=== PATIENT | female | born 1950 | race Caucasian/White ===

== ENCOUNTER → 2016-11-02 | Outpatient (CLI) | payer OTHER ==
[~2016-11-02] MED LIST: ATOR-24 PO; CMD/25 PO; DXY100 PO; FURO80TA63 PO; HYCUDL5 PO; LORA10CA2 PO; LXP/10 PO; METO100T14 PO; POTA1080 PO; SOTA160T16 PO; WARF5TAB90 PO
[2016-11-02 09:34] LABS: BASO % 0.4 %; BASO ABS # 0.03 K/uL (0-0.2); COMPLETE YES; HEMATOCRIT 47.7 % (37-47); IG% 0.3 %; LYMPH % 21.1 %; LYMPH ABS # 1.56 K/uL (1.2-3.4); MEAN CELL VOLUME 88.7 fL (80-100); MEAN CORPUSCULAR HEMOGLOBIN 27.5 pg (25-34); MEAN PLATELET VOLUME 10.3 fL (7.4-10.4); NEUT % 70.2 %; PLATELET COUNT 224 K/uL (130-400); RED BLOOD COUNT 5.38 M/uL (4.2-5.4); WHITE BLOOD COUNT 7.38 K/uL (4.8-10.8)
[2016-11-02 10:14] LABS: BLOOD UREA NITROGEN 11 mg/dl (7-18); BUN/CREATININE RATIO 14.5 (10-20); CALCIUM 9.1 mg/dl (8.5-10.1); CARBON DIOXIDE 28 mmol/L (21-32); CHLORIDE 106 mmol/L (98-107); CREATININE 0.78 mg/dl (0.60-1.20); GLUCOSE 162 mg/dl (70-99); POTASSIUM 3.6 mmol/L (3.5-5.1); SODIUM 141 mmol/L (136-145)
[2016-11-02 10:25] LABS: THYROID STIMULATING HORMONE 0.925 uIu/ml (0.300-4.500)
== END | disposition home or self-care (01) ==
LOC: C.LAB1850 08:45
PROVIDERS: ATTEND Physician Assistant Medical
DX: R06.09 Other forms of dyspnea (principal)

== ENCOUNTER 2017-02-15 10:47 | Emergency (ER) | payer OTHER ==
[~2017-02-15] VITALS: Ht 160 cm; Wt 91.8 kg
[~2017-02-15 10:47] MED LIST changes: -SOTA160T16 PO; +[UNRECOGNIZED DRUG - CODE] PO
[2017-02-15 10:53] VITALS: TEMP 36.3; Ht 160 cm; Wt 91.8 kg
[2017-02-15] MEDS ORDERED: METO50TA17 PO (11:34)
[2017-02-15] MEDS ORDERED: SOTA160T PO (11:34)
[2017-02-15] MEDS ORDERED: LXP/20 PO (11:34)
[2017-02-15] MEDS ORDERED: LPT40 PO (11:34)
[2017-02-15] MEDS ORDERED: WARF-246 PO (11:34)
[2017-02-15] MEDS ORDERED: PROM12.57 PO (11:34)
[2017-02-15] MEDS ORDERED: POTA1CAP2 PO (11:34)
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
[2017-02-15 12:56] VITALS: BP 121/96; PULSE 104; O2SAT 93
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
[2017-03-09] MEDS ORDERED: AMX500 (06:53)
[2017-03-09] MEDS ORDERED: ACET-1256 PO (06:53)
[2017-03-09] MEDS ORDERED: TRAM-10 PO (06:53)
[2017-03-09] MEDS ORDERED: CLR10 PO (06:53)
[2017-03-09] MEDS ORDERED: VNTHFA/IN INH (06:53)
== END 2017-02-15 12:58 | disposition home or self-care (01) ==
LOC: C.EDB 10:48 → C.EDD 12:58
DX: R51 Headache (principal); M54.2 Cervicalgia; M25.512 Pain in left shoulder; V43.52XA Car driver injured in collision with other type car in traffic accident, initial encounter; I48.91 Unspecified atrial fibrillation; I10 Essential (primary) hypertension; Z79.01 Long term (current) use of anticoagulants; Z95.2 Presence of prosthetic heart valve

== ENCOUNTER → 2017-03-01 | Outpatient (CLI) | payer OTHER ==
[~2017-03-01] MED LIST changes: -ATOR-24 PO; -CMD/25 PO; -DXY100 PO; -HYCUDL5 PO; -LORA10CA2 PO; +LPT40 PO; -LXP/10 PO; +LXP/20 PO; -METO100T14 PO; +METO50TA17 PO; -POTA1080 PO; +POTA1CAP2 PO; +PROM12.57 PO; +SOTA160T PO; +WARF-246 PO; -WARF5TAB90 PO; -[UNRECOGNIZED DRUG - CODE] PO
[2017-03-01 09:46] LABS: BLOOD UREA NITROGEN 17 mg/dl (7-18); CALCIUM 8.4 mg/dl (8.5-10.1); CARBON DIOXIDE 30 mmol/L (21-32); CREATININE 0.92 mg/dl (0.60-1.20); GLUCOSE 186 mg/dl (70-99); POTASSIUM 3.6 mmol/L (3.5-5.1); SODIUM 140 mmol/L (136-145)
== END | disposition home or self-care (01) ==
LOC: C.LAB1850 08:36
PROVIDERS: ATTEND Physician Assistant
DX: I50.32 Chronic diastolic (congestive) heart failure (principal)

== ENCOUNTER → 2017-03-09 | Day surgery (SDC) | payer OTHER ==
[~2017-03-09] VITALS: Ht 160 cm; Wt 93.0 kg
[~2017-03-09] MED LIST changes: +ACET-1256 PO; +AMX500; +ATROPINE SULFATE 0.1 MG/ML 5ML SYR IV PRN; +CLR10 PO; +EpHEDrine SULFATE INJ 50 MG/ML AMP IV PRN; +PROPOFOL IV EMULSION 10 MG/ML 20 ML VIAL IV ONE; +TRAM-10 PO; +VNTHFA/IN INH
[2017-03-09 07:15] VITALS: BP 127/94; PULSE 109; TEMP 36.4; O2SAT 99; Ht 160 cm; Wt 93.0 kg
--- NOTE | 2017-03-09 07:26 | History & Physical Bridge Note ---
H&P Re-Evaluation Bridge Note: I have examined the patient, reviewed the History & Physical and in the interval since the performance of the History & Physical I have noted the following changes of clinical significance:INR therapeutic. Still in AF. No changes noted
[2017-03-09 07:38] VITALS: BP 139/77; PULSE 120; O2SAT 99
[2017-03-09 07:43] VITALS: BP 106/64; PULSE 120; O2SAT 95
--- NOTE | 2017-03-09 07:44 | Procedure Note ---
Procedure Note Date of Service Mar 09, 2017. Procedure Note Procedure performed: Cardioversion Indication: Atrial fibrillation Staff process line operator: Andrea Riso MD Procedure in detail: The patient was informed of the risks benefits and alternatives to the intended procedure. He understood such which proceed. He was taken to the cardiac catheterization suite holding area. A general anesthetic was administered by the Anesthesiology Service. Once appropriately anesthetized, the patient was cardioverted using 200 joules delivered in a biphasic fashion. This returned the patient to sinus rhythm. The patient tolerated procedure well, there were no immediate complications. Patient was neurologically intact subsequent to the procedure. Impression: Successful cardioversion from atrial fibrillation to normal sinus rhythm
--- NOTE | 2017-03-09 07:45 | Discharge Instructions ---
Discharge Instructions Procedure Procedure Date: Mar 09, 2017. Reason for Visit: A Fib W/Anesthesia. Discharge Discharge Date: Mar 09, 2017. Discharge Diagnosis: Atrial fibrillation Last Recorded Wt (Kilograms): 93 Anesthesia Post Anesthesia Instructions: If you have had General Anesthesia or IV Sedation: * Do not drive today. * Resume driving when surgeon permits. * Do not make important decisions or sign legal documents today. * Call surgeon for: 1. Temperature elevations greater than 101 degrees F. 2. Uncontrollable pain. 3. Excessive bleeding. 4. Persistent nausea and vomiting. 5. Medication intolerance (nausea, vomiting or rash). * For nausea and vomiting use only clear liquids such as: tea, soda, bouillon until nausea subsides, then gradually increase diet as tolerated. * If you have any concerns or questions, call your surgeon's office. If physician is unavailable and it is an emergency, call 911 or go to the nearest emergency room. Instructions Activity Recommendations: driving or machine use limit Return to School/Work: with the following limitations Recommended Home Diet: resume previous diet Allergies: Coded Allergies: Iodinated Contrast Media (Verified Allergy, Mild, `, 02/15/17) Latex1 -Allergic Contact Dermititis (Verified Allergy, Unknown, skin red and blistered, 02/15/17) Provider Instructions No driving for 24 hours Follow Up Swapnil Ortiz Recommendations: Call your doctor if: * Temperature above 101 degrees * Pain not relieved by pain medicine ordered * There is increased drainage or redness from any incision * You have any unanswered questions or concerns. Your Doctors Instructions noted above were prepared by provider Anthony Rios. Patient Signature Section: Patient Instructions Signature Page Alexsandra Wolf Patient (or Guardian) Signature/Date: I have read and understand the instructions given to me by my caregivers. Caregiver/RN/Doctor Signature/Date: The above-named patient and/or guardian has received patient instructions on this date. + Original Patient Signature Page (only) stays with chart. Please make copy for patient.
[2017-03-09 07:48] VITALS: BP 90/54; PULSE 60; O2SAT 95
--- NOTE | 2017-03-09 07:54 | Anesthesiology Progress Note ---
Anesthesia Post Op Note Date & Time Mar 09, 2017 at 07:54 Vital Signs Pain Intensity: 0 Vital Signs Past 12 Hours Date Time Temp Pulse Resp B/P (MAP) Pulse Ox O2 Delivery O2 Flow Rate FiO2 03/09/17 07:50 36.5 60 18 93/58 (70) 95 Room Air 03/09/17 07:48 60 18 90/54 95 Nasal Cannula 4 03/09/17 07:43 120 18 106/64 95 Nasal Cannula 4 03/09/17 07:38 120 18 139/77 99 Nasal Cannula 4 03/09/17 07:15 36.4 109 18 127/94 (105) 99 Room Air Notes Mental Status: alert / awake / arousable, participated in evaluation Pt Amnestic to Procedure: Yes Nausea / Vomiting: adequately controlled Pain: adequately controlled Airway Patency, RR, SpO2: stable & adequate BP & HR: stable & adequate Hydration State: stable & adequate Anesthetic Complications: no major complications apparent
[2017-03-09 08:30] VITALS: BP 122/66; PULSE 61; O2SAT 95
== END | disposition home or self-care (01) ==
LOC: C.CATH 06:56
PROVIDERS: ATTEND Internal Medicine Clinical Cardiac Electrophysiology
DX: I48.0 Paroxysmal atrial fibrillation (principal); I11.0 Hypertensive heart disease with heart failure; E78.5 Hyperlipidemia, unspecified; I50.32 Chronic diastolic (congestive) heart failure; R06.09 Other forms of dyspnea; Z95.2 Presence of prosthetic heart valve; E66.9 Obesity, unspecified; Z68.36 Body mass index [BMI] 36.0-36.9, adult; Z88.1 Allergy status to other antibiotic agents; Z79.899 Other long term (current) drug therapy; Z83.3 Family history of diabetes mellitus; Z82.49 Family history of ischemic heart disease and other diseases of the circulatory system

== ENCOUNTER 2017-04-13 16:55 | Inpatient (IN) | payer OTHER ==
[~2017-04-13] VITALS: Ht 162.6 cm; Wt 93.0 kg
[~2017-04-13 16:55] MED LIST changes: -ATROPINE SULFATE 0.1 MG/ML 5ML SYR IV PRN; -EpHEDrine SULFATE INJ 50 MG/ML AMP IV PRN; -PROM12.57 PO; -PROPOFOL IV EMULSION 10 MG/ML 20 ML VIAL IV ONE; -TRAM-10 PO
[2017-04-13] MEDS ORDERED: DILTIAZEM BOLUS / DRIP IV STA (17:36)
[2017-04-13] MEDS ORDERED: DILTIAZEM HCL INJ 125 MG in DEXTROSE 5% 100ML IV PRN (17:45)
[2017-04-13] MEDS ORDERED: WARF5TAB7 PO (17:57)
[2017-04-13] MEDS ORDERED: CMD75 PO (17:57)
[2017-04-13] MEDS ORDERED: ULT50 PO (17:58)
[2017-04-13 17:59] LABS: BASO % 0.3 %; BASO ABS # 0.03 K/uL (0-0.2); EOS ABS # 0.09 K/uL (0-0.5); HEMATOCRIT 41.2 % (37-47); HEMOGLOBIN 13.3 g/dL (12.0-16.0); IG# 0.01 K/uL (0.00-0.02); LYMPH % 19.9 %; LYMPH ABS # 1.83 K/uL (1.2-3.4); MEAN CELL VOLUME 84.1 fL (80-100); MEAN CORPUSCULAR HEMOGLOBIN 27.1 pg (25-34); MEAN CORPUSCULAR HGB CONC 32.3 g/dl (32-36); MEAN PLATELET VOLUME 9.7 fL (7.4-10.4); MONO % 6.2 %; MONO ABS # 0.57 K/uL (0.11-0.59); NEUT % 72.5 %; NEUT ABS # 6.66 K/uL (1.4-6.5); PLATELET COUNT 218 K/uL (130-400); RED CELL DISTRIBUTION WIDTH CV 16.8 % (11.5-14.5); RED CELL DISTRIBUTION WIDTH SD 51.9 fL (36.4-46.3); WHITE BLOOD COUNT 9.19 K/uL (4.8-10.8)
[2017-04-13 18:16] LABS: INR 2.5 (0.9-1.1); PTT PATIENT 30.6 SECONDS (21.0-31.0)
[2017-04-13 18:18] LABS: CALCIUM 8.9 mg/dl (8.5-10.1); CREATININE 1.04 mg/dl (0.60-1.20); POTASSIUM 3.5 mmol/L (3.5-5.1)
--- NOTE | 2017-04-13 18:25 | DIAGNOSTIC IMAGING REPORT ---
CHEST ONE VIEW PORTABLE CLINICAL HISTORY: Atypical chest pain COMPARISON STUDY: February 2015 FINDINGS: There are postsurgical changes of midline sternotomy and valvular replacement. The heart remains enlarged. There is diffuse elevation of the interstitium, likely secondary to mild congestive failure/fluid overload. There is no lobar consolidation. There are no significant pleural effusions.[ IMPRESSION: 1. Cardiomegaly and diffuse elevation of the interstitium, likely secondary to mild congestive failure/fluid overload 2. No evidence of lobar consolidation Electronically signed by: Ian Fox M.D. 04/13/2017 6:23 PM Dictated Date/Time: 04/13/2017 6:22 PM
[2017-04-13] MEDS ORDERED: METOPROLOL TARTRATE 50 MG TAB PO ONE (19:30)
[2017-04-13] MEDS ORDERED: LEVALBUTEROL/IPRATROPIUM NEB INH STA (20:59)
[2017-04-13] MEDS ORDERED: PROCHLORPERAZINE INJ 5 MG in SYRINGE 4 ML IV PRN (21:00)
[2017-04-13] MEDS ORDERED: ACETAMINOPHEN 325 MG TAB PO PRN (21:00)
[2017-04-13] MEDS ORDERED: LEVALBUTEROL/IPRATROPIUM NEB INH PRN (21:00)
[2017-04-13] MEDS ORDERED: LORAZEPAM 2 MG/ML 1 ML VIAL IV PRN (21:00)
[2017-04-13] MEDS ORDERED: NITROGLYCERIN 0.4 MG SL PER TAB CHARGE SL PRN (21:00)
[2017-04-13] MEDS ORDERED: TRAMADOL HCL 50 MG TAB PO PRN (21:00)
[2017-04-13] MEDS ORDERED: MoRPHine SULFATE 4 MG/ML 1 ML CARP\\VIAL IV PRN (21:00)
[2017-04-13] MEDS ORDERED: WARFARIN SOD 5 MG TAB PO ONE (21:00)
[2017-04-13] MEDS ORDERED: FUROSEMIDE 40 MG/4 ML VIAL IV STA (21:05)
[2017-04-13 21:58] VITALS: BP 130/80; PULSE 76; TEMP 36.5; O2SAT 93; BMI 35.6
[2017-04-13] MEDS ORDERED: IPRATROPIUM BROMIDE NEB SOLN 0.02% 2.5 ML VIAL INH ONE (22:15)
[2017-04-13] MEDS ORDERED: LEVALBUTEROL 1.25MG/0.5ML NEB INH ONE (22:15)
[2017-04-13] MEDS ORDERED: MAGNESIUM SULFATE 1GM / D5W 1 GM in PREMIXED IN D5W 100 ML IV ONE (22:30)
[2017-04-13] MEDS ORDERED: POTASSIUM CHLORIDE 10 MEQ TABCR PO ONE (22:30)
[2017-04-13] MEDS ORDERED: IPRATROPIUM BROMIDE NEB SOLN 0.02% 2.5 ML VIAL INH PRN (22:30)
[2017-04-13] MEDS ORDERED: LEVALBUTEROL 1.25MG/0.5ML NEB INH PRN (22:30)
[2017-04-13] MEDS ORDERED: NURSING VERBAL MED ORDER ONE (23:00)
--- NOTE | 2017-04-13 23:33 | EMERGENCY ROOM VISIT NOTE ---
History Report prepared by Eder: Giovanni Brown Under the Supervision of: Dr. Hunter Blanco M.D. First contact with patient: 17:30 Chief Complaint: IRREGULAR HEARTBEAT Stated Complaint: SOB, AFIB- PHYSICIAN REFERRED Nursing Triage Summary: Patient presents with history of atrial fibrillation. States, "I'm in a-fib and short of brerath". Sent to ED by [facility] [place]. Mechanical aortic valve replaced in 2006, on warfarin. Patient is dyspneic on presentation. States that she has difficulty walking more than 50 feet without having to stop due to dyspnea. History of Present Illness The patient is a 67 year old female who presents to the Emergency Room with complaints of persistent irregular heartbeat for the past week. The patient additionally notes that she has been having worsening shortness of breath for the last couple of weeks, and she had a chest pressure last night which quickly resolved. The patient denies any abdominal pain, vomiting, diarrhea, fever, and light headedness. She notes that she sometimes has a headache. The patient states that she has a history of A-fib, and she was cardioverted on March 09. She notes that she was having a normal heart rate for a while, though the A-fib is coming back. She notes that she is on metoprolol and sotalol, and both dosages were increased 4 weeks ago. The patient states that she called cardiology this morning, and they told her to come to the ED for evaluation. She has a mechanical valve, and she is on Coumadin. She denies any rectal bleeding and black stools. Source of History: patient Onset: the past week Position: other (global) Quality: other (irregular heartbeat) Timing: other (persistent) Associated Symptoms: + headache, + SOB, No fevers, No vomiting, No abdominal pain, No diarrhea Note: Associated symptoms: Chest pressure Review of Systems See HPI for pertinent positives & negatives. A total of 10 systems reviewed and were otherwise negative. Past Medical & Surgical Medical Problems: (1) Afib (2) Anticoagulants,Lt,Current Use (3) Atrial Fibrillation (4) Calculus Of Kidney (5) CHF exacerbation (6) Delivered by section (7) Depressive Disorder Nec (8) HLD (hyperlipidemia) (9) HTN (hypertension) (10) Hypoxia (11) Personal History Of Urinary Calculi Surgical Problems: (1) Heart Valve Replac Nec (2) History of aortic valve replacement (3) History of oophorectomy, unilateral (4) S/P tonsillectomy Family History Diabetes mellitus FATHER BROTHER FH: cancer FATHER BROTHER FH: heart disease FATHER MOTHER BROTHER Hypertension MOTHER Stroke MOTHER Social History Smoking Status: Former Smoker Alcohol Use: none Drug Use: none Marital Status: single Occupation Status: employed Current/Historical Medications Scheduled Atorvastatin (Lipitor), 1 TAB PO DAILY Escitalopram Oxalate (Escitalopram Oxalate), 1 TAB PO DAILY Loratadine (Claritin), 10 MG PO DAILY Metoprolol Tartrate (Metoprolol Tartrate), 100 MG PO BID Potassium Chloride (Potassium Chloride Er), 1 CAP PO UD Sotalol Hcl (Sotalol Hcl), 80 MG PO BID Warfarin Sod (Jantoven), 5 MG PO 2XWK Warfarin Sod (Coumadin), 7.5 MG PO 5XWK Scheduled PRN Acetaminophen (Tylenol), 500 MG PO for Pain Amoxicillin (Amoxicillin), for Documentation Furosemide (Lasix), Unknown Dose PO DAILY PRN for WATER RETENTION Tramadol HCl (Tramadol HCl), 50 MG PO Q6 PRN for Pain Allergies Coded Allergies: Iodinated Contrast Media (Verified Allergy, Mild, `, 04/13/17) Latex1 -Allergic Contact Dermititis (Verified Allergy, Unknown, skin red and blistered, 04/13/17) Physical Exam Vital Signs Date Time Temp Pulse Resp B/P (MAP) Pulse Ox O2 Delivery O2 Flow Rate FiO2 04/13/17 19:41 85 20 138/95 96 Room Air 04/13/17 19:39 96 Room Air 04/13/17 19:00 102 22 152/111 96 Room Air 04/13/17 17:41 119 04/13/17 17:10 36.7 134 24 128/77 94 Room Air 04/13/17 17:03 Room Air Physical Exam Constitutional: Vital signs reviewed. Eyes: Pupils are equal round reactive to light. Conjunctiva are noninjected. ENT: Pharynx is clear without erythema or exudate. Mucous membranes are moist. Neck supple without meningeal signs. Respiratory: Clear to auscultation bilaterally. Breath sounds are equal bilaterally. Cardiovascular: Tachycardic heart rate in the 130s. Irregularly irregular rhythm. Audible mechanical valve. GI: Soft, nondistended and nontender. Bowel sounds are present. Musculoskeletal: No peripheral edema. No lower extremity tenderness. Integumentary: No cyanosis. Neurological: The patient is awake and alert. No focal deficits. Psychiatric: Normal affect. Medical Decision & Procedures ER Provider Diagnostic Interpretation: Radiology results as stated below per my review and the radiologist's interpretation: CHEST ONE VIEW PORTABLE CLINICAL HISTORY: Atypical chest pain COMPARISON STUDY: February 2015 FINDINGS: There are postsurgical changes of midline sternotomy and valvular replacement. The heart remains enlarged. There is diffuse elevation of the interstitium, likely secondary to mild congestive failure/fluid overload. There is no lobar consolidation. There are no significant pleural effusions.[ IMPRESSION: 1. Cardiomegaly and diffuse elevation of the interstitium, likely secondary to mild congestive failure/fluid overload 2. No evidence of lobar consolidation Electronically signed by: Ian Fox M.D. 04/13/2017 6:23 PM Dictated Date/Time: 04/13/2017 6:22 PM Laboratory Results 04/13/17 17:45 Red Blood Count 4.90, Mean Corpuscular Volume 84.1, Mean Corpuscular Hemoglobin 27.1, Mean Corpuscular Hemoglobin Concent 32.3, Mean Platelet Volume 9.7, Neutrophils (%) (Auto) 72.5, Lymphocytes (%) (Auto) 19.9, Monocytes (%) (Auto) 6.2, Eosinophils (%) (Auto) 1.0, Basophils (%) (Auto) 0.3, Neutrophils # (Auto) 6.66, Lymphocytes # (Auto) 1.83, Monocytes # (Auto) 0.57, Eosinophils # (Auto) 0.09, Basophils # (Auto) 0.03 04/13/17 17:45 Test 04/13/17 17:45 04/13/17 19:41 White Blood Count 9.19 K/uL (4.8-10.8) Red Blood Count 4.90 M/uL (4.2-5.4) Hemoglobin 13.3 g/dL (12.0-16.0) Hematocrit 41.2 % (37-47) Mean Corpuscular Volume 84.1 fL (80-100) Mean Corpuscular Hemoglobin 27.1 pg (25-34) Mean Corpuscular Hemoglobin Concent 32.3 g/dl (32-36) Platelet Count 218 K/uL (130-400) Mean Platelet Volume 9.7 fL (7.4-10.4) Neutrophils (%) (Auto) 72.5 % Lymphocytes (%) (Auto) 19.9 % Monocytes (%) (Auto) 6.2 % Eosinophils (%) (Auto) 1.0 % Basophils (%) (Auto) 0.3 % Neutrophils # (Auto) 6.66 K/uL (1.4-6.5) Lymphocytes # (Auto) 1.83 K/uL (1.2-3.4) Monocytes # (Auto) 0.57 K/uL (0.11-0.59) Eosinophils # (Auto) 0.09 K/uL (0-0.5) Basophils # (Auto) 0.03 K/uL (0-0.2) RDW Standard Deviation 51.9 fL (36.4-46.3) RDW Coefficient of Variation 16.8 % (11.5-14.5) Immature Granulocyte % (Auto) 0.1 % Immature Granulocyte # (Auto) 0.01 K/uL (0.00-0.02) Prothrombin Time 26.1 SECONDS (9.0-12.0) Prothromb Time International Ratio 2.5 (0.9-1.1) Activated Partial Thromboplast Time 30.6 SECONDS (21.0-31.0) Partial Thromboplastin Ratio 1.2 Anion Gap 7.0 mmol/L (3-11) Est Creatinine Clear Calc Drug Dose 56.8 ml/min Estimated GFR () 63.5 Estimated GFR (Non- 54.8 BUN/Creatinine Ratio 16.6 (10-20) Calcium Level 8.9 mg/dl (8.5-10.1) Magnesium Level 1.9 mg/dl (1.8-2.4) Pro-B-Type Natriuretic Peptide 3984 pg/ml (0-900) Thyroid Stimulating Hormone (TSH) 1.470 uIu/ml (0.300-4.500) Bedside Troponin I < 0.030 ng/ml (0-0.045) Laboratory results as reviewed by me. Medications Administered Medications (Trade) Dose Ordered Sig/Travis Route Start Time Stop Time Status Last Admin Dose Admin Diltiazem HCl (Cardizem Bolus / Drip) 1 ea NOW STAT IV 04/13/17 17:36 04/13/17 22:59 DC 04/13/17 17:36 1 EA Diltiazem HCl 125 mg/Dextrose 125 ml @ 0 mls/hr Q0M PRN IV 04/13/17 17:45 05/13/17 17:44 04/13/17 18:06 10 MLS/HR ECG Per My Interpretation Indication: other (irregular heart rate) Rate (beats per minute): 126 Rhythm: atrial fibrillation (with RVR) Findings: RBBB (incomplete), T-wave inversion (anteroseptal) ED Course 0: The patient was evaluated in room C2. A complete history and physical exam was performed. 1735: Diltiazem HCl 125mg/ Dextrose 10mls/hr IV 1809: I reevaluated the patient, and she started the Cardizem. Her heat rate was 113. 0: The patient's heart rate was in the 90s to 110s, and she has no complaints. 1901: I reevaluated the patient, and her blood pressure was better and her heart rate down. I discussed the test results and treatment plan with her. 1920: I discussed the patient's case with Dr. Chantal Johnson Hospitalist. He is going to evaluate the patient for further treatment. Medical Decision This is a 67-year-old female presents with shortness of breath and palpitations with chest pain. Differential diagnosis includes dysrhythmia, atrial fibrillation with RVR, unstable angina, metabolic derangement, electrolyte abnormality. I did perform a limited focused review of portions of the patient' s old chart on the electronic medical record. The patient underwent cardioversion with Dr. Rios on 03/09/16. I did evaluate the patient as noted above. IV access was established. The patient was placed on a continuous cardiac cath tech. I did order and personally review the patient's 12-lead EKG and chest x-ray as described above. Twelve- lead EKG demonstrates atrial fibrillation with RVR. I did start the patient on a Cardizem drip at 10 mg an hour. I did not bolus her as her blood pressure was slightly low. I did order and review the patient's blood work as noted in the electronic medical record. Her INR is therapeutic. Electrolytes are unremarkable. Troponin is negative. I did reassess patient several times. Her blood pressure improved and her heart rate came down into the 90s. I did discuss the test results with the patient and discussed case with the hospitalist and hospice case manager. Medication Reconcilliation Current Medication List: was personally reviewed by me Blood Pressure Screening Patient's blood pressure: Elevated blood pressure Monitored by the hospitalist Consults Time Called: 1851 Consulting Physician: Dr. Chantal Kyle Returned Call: 1920 I discussed the patient's case with Dr. Chantal Kyle. He is going to evaluate the patient for further treatment. Impression Primary Impression: Atrial fibrillation with RVR Additional Impressions: Anticoagulated on Coumadin Precordial chest pain Critical Care I have personally spent 33 minutes of critical care time in the direct management of this patient. This includes bedside care, interpretation of diagnostic studies, and testing, discussion with consultants, patient, and family members, and other required patient management activities. This 33 minutes is in excess of all separately billable procedures. Scribe Attestation The scribe's documentation has been prepared under my direct and personally reviewed by me in its entirety. I confirm that the note above accurately reflects all work, treatment, procedures, and medical decision making performed by me. Departure Information Dispostion Being Evaluated By Hospitalist Referrals Guillermina Barry D.O. (PCP) Patient Instructions My [facility] Problem Qualifiers
[2017-04-13 23:45] VITALS: BP 106/67; PULSE 84; TEMP 36.7; O2SAT 95
[2017-04-14] VITALS (8 sets, daily range): BP systolic 95–127; BP diastolic 47–104; PULSE 67–107; TEMP 36.7–36.8; O2SAT 93–98; Ht 162.6 cm; Wt 93.0 kg
[2017-04-14] MEDS ORDERED: INFLUENZA ADMINISTRATION CHARGE ONE (01:45)
[2017-04-14] MEDS ORDERED: INFLUENZA VACCINE HIGH DOSE 65+ 0.5 ML SYR IM. ONE (01:45)
--- NOTE | 2017-04-14 05:20 | HISTORY & PHYSICAL EXAMINATION ---
DATE OF ADMISSION: 04/13/2017 PRIMARY CARE DOCTOR: Dr. Barry. CHIEF COMPLAINT: Atrial fibrillation. HISTORY OF PRESENT ILLNESS: History obtained from the patient and records. Medical history significant for chronic systolic heart failure EF 45-50% TTE 2014, history of mechanical AVR, atrial fibrillation on Coumadin, hypertension, urolithiasis, past tobacco abuse, history of difficult intubation as per records Recent confinement last February 2015 for acute bronchitis. As per patient, the last 3 months, patient noted dyspnea on exertion, usual orthopnea. No chest pain. Denies unusual weight gain or leg swelling, although admits to some chest and abdominal fullness. No cough symptoms. Denies dietary indiscretion. Compliant with medications. Symptoms persistent despite elective cardioversion done for AF last February 2017 [place] [facility]. As per patient she relapse into A. fib a week after cardioversion. Has had monthly follow ups at [facility] office the last 3 months. Diuretic doses tweaked, Sotalol dose increased from 80 mg to 160 b.i.d. No improvement of breathing symptoms. Had a followup at heart doctor's office today. Patient directed to the Emergency Room. Noted to be in rapid AFib in ER. IV Cardizem started in the ER. MEDICAL HISTORY: As above. A 2D echo from 2014 showed EF of 45-50%, intact prosthetic aortic root, mechanical aortic valve, mild aortic stenosis, mild moderate MR, mild TR, normal RV systolic pressure. SURGICAL HISTORY: She has had aortic valve replacement, urologic procedures, tonsillectomy and section. HOME MEDICATIONS: Include Lipitor, Tylenol, citalopram, Lasix, Claritin, metoprolol, potassium chloride, sotalol, tramadol, Jantoven, and Coumadin. ALLERGIES: LATEX DYE. FAMILY HISTORY: Family history of kidney stones, heart disease. 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. 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 REVIEW OF SYSTEMS: As per HPI, all 10 systems reviewed, all other ROS negative. PHYSICAL EXAMINATION: VITAL SIGNS: Blood pressure noted to be 128/77, pulse rate 134, later 102; RR 24, temperature 36.7, sats 94% on room air. GENERAL: Noted to be slightly anxious, obese, pleasant, no respiratory distress. SKIN: Normal color, warm. HEENT: [place] palpebral conjunctivae. No ptosis. Dry mucosa. NECK: Short neck, supple. CHEST: Decreased breath sounds. No tenderness. HEART: Healed incisional sternal scar. Irregular, systolic murmur. ABDOMEN: Some distention, nontender. EXTREMITIES: Minimal LE edema, no tenderness. No tenderness NE : Coherent, no gross focality. LABORATORY DATA: Hemoglobin 13.8, hematocrit 41.2, white cells 9.19, platelets 218. Sodium 140, potassium 3.5, CO2 26, BUN 70, creatinine 1 glucose 142. trop 0, INR 2.5 IMAGING DATA: Chest x-ray showed cardiomegaly, mild congestion. EKG as per my interpretation, rate 125, aFib, incomplete right bundle branch block, ST depression in the inferior leads. ASSESSMENT: 1. Decompensated heart failure Subacute symptoms history of systolic heart failure (EF 45-50% TTE 2014) 2. Rapid atrial fibrillation past hx cardioversion 02/2017 INR subtherapeutic. 3. Hypertension 4. sp mechanical aortic valve replacement, on Coumadin. INR subtherapeutic. 5. Past tobacco abuse. 6. Hyperglycemia, rule out DM PLAN: PCU. Additional diuretic Rx Strict IOs, daily weights, CHF education Update TTE RE CHF Facilitate home Metoprolol, Sotalol maintenance medications for rate control. Cardio consult RE decompensated HF, uncontrolled AF (Patient known to [facility] NPO sips after midnight for possible cardioversion in the morning. Check hemoglobin A1c. DVT prophylaxis, Coumadin, INR 2-3. Full code. MTDD
[2017-04-14 07:01] LABS: HEMOGLOBIN A1C 6.7 % (4.5-5.6)
[2017-04-14 07:20] LABS: BASO % 0.5 %; BASO ABS # 0.03 K/uL (0-0.2); EOS % 2.1 %; EOS ABS # 0.14 K/uL (0-0.5); HEMATOCRIT 41.6 % (37-47); IG# 0.02 K/uL (0.00-0.02); LYMPH % 24.2 %; LYMPH ABS # 1.58 K/uL (1.2-3.4); MEAN CELL VOLUME 84.7 fL (80-100); MEAN CORPUSCULAR HEMOGLOBIN 26.5 pg (25-34); MEAN CORPUSCULAR HGB CONC 31.3 g/dl (32-36); MEAN PLATELET VOLUME 9.4 fL (7.4-10.4); MONO % 8.3 %; MONO ABS # 0.54 K/uL (0.11-0.59); NEUT % 64.6 %; NEUT ABS # 4.22 K/uL (1.4-6.5); PLATELET COUNT 201 K/uL (130-400); RED CELL DISTRIBUTION WIDTH CV 16.9 % (11.5-14.5); RED CELL DISTRIBUTION WIDTH SD 52.3 fL (36.4-46.3); WHITE BLOOD COUNT 6.53 K/uL (4.8-10.8)
[2017-04-14 07:30] LABS: INR 2.4 (0.9-1.1)
[2017-04-14 07:49] LABS: CALCIUM 8.6 mg/dl (8.5-10.1); CREATININE 0.87 mg/dl (0.60-1.20); POTASSIUM 3.8 mmol/L (3.5-5.1)
[2017-04-14] MEDS ORDERED: NURSING VERBAL MED ORDER ONE ×3 (08:45→11:45)
[2017-04-14] MEDS ORDERED: POTASSIUM CHLORIDE 10 MEQ TABCR PO SCH ×2 (09:00)
[2017-04-14] MEDS ORDERED: ATORVASTATIN 40 MG TAB PO SCH ×2 (09:00→21:00)
[2017-04-14] MEDS ORDERED: FUROSEMIDE INJ 80 MG in SYRINGE 0 ML IV ONE (09:00)
[2017-04-14] MEDS ORDERED: LORATADINE 10 MG TAB PO SCH (09:00)
[2017-04-14] MEDS ORDERED: METOPROLOL TARTRATE 100 MG TAB PO SCH (09:00)
[2017-04-14] MEDS ORDERED: ESCITALOPRAM OXALATE 20 MG TAB PO SCH ×2 (09:00→21:00)
[2017-04-14] MEDS ORDERED: SOTALOL HCL 80 MG TAB PO SCH (09:00)
--- NOTE | 2017-04-14 11:02 | Cardiology Consultation ---
Cardiology Consultation Date of Consultation: Apr 14, 2017. Requesting Physician: Jean Reason for Consultation: Atrial fibrillation Pt evaluation today including: conversation w/ patient, conversation w/ family , physical exam, chart review, lab review, review of studies, review of inpatient medication list, conversation w/ attending History of Present Illness Patient is a 67-year-old woman with a history of persistent atrial fibrillation. She was evaluated in the outpatient setting recently and discovered to have persistent atrial fibrillation with symptoms of dyspnea on exertion and exercise intolerance. She had undergone a cardioversion in February but did not notice significant improvement in her symptoms afterwards. There is some suspicion that she did not have an extended period of sinus rhythm. In the outpatient setting she has had increasing doses of sotalol. She has also been placed on diuretic therapy for presumed pulmonary vascular congestion. However, her symptoms have persisted. She was evaluated in the outpatient setting yesterday discovered to have atrial fibrillation with rapid ventricular rate. She also had notable dyspnea while walking into the clinic from the parking lot. She is not describe overt orthopnea or paroxysmal nocturnal dyspnea but has been sleeping upright ever since her aortic valve surgery 11 years ago. She has not noticed dizziness or lightheadedness. She is aware of palpitations on occasion, more commonly when she is active. She does not report significant edema and has not noticed increasing abdominal girth or swelling in her chest area which is common for her when she has edema. She has not noticed any swelling in her lower extremities. She denies any recent symptoms of chest discomfort. Past Medical/Surgical History Atrial fibrillation, persistent History of tachycardia induced cardiomyopathy, resolved Hyperlipidemia Hypertension Ureteral stricture Past surgical history Mechanical aortic valve replacement with root replacement 2007 Caesarean section Family History Diabetes mellitus FATHER BROTHER FH: cancer FATHER BROTHER FH: heart disease FATHER MOTHER BROTHER Hypertension MOTHER Stroke MOTHER No premature coronary disease Social History Smoking Status: Former Smoker History of Alcohol Use: No Currently lives independently Review of Systems No recent constitutional symptoms such as fevers or chills. Some mild upper nasal congestion. No nausea or vomiting. One episode of diarrhea a few days ago. All Other Systems: Reviewed and Negative Allergies Coded Allergies: Iodinated Contrast Media (Verified Allergy, Mild, `, 04/13/17) Latex1 -Allergic Contact Dermititis (Verified Allergy, Unknown, skin red and blistered, 04/13/17) Medications Current Inpatient Medications Medications (Trade) Dose Ordered Sig/Travis Route Start Time Stop Time Status Last Admin Dose Admin Metoprolol Tartrate (Lopressor Tab) 100 mg BID PO 04/14/17 09:00 05/14/17 08:59 04/14/17 08:03 100 MG Acetaminophen (Tylenol Tab) 650 mg Q4H PRN PO 04/13/17 21:00 05/13/17 20:59 Nitroglycerin (Nitrostat Tab) 0.4 mg UD PRN SL 04/13/17 21:00 05/13/17 20:59 Lorazepam (Ativan Inj) 0.5 mg Q4H PRN IV 04/13/17 21:00 05/13/17 20:59 Loratadine (Claritin Tab) 10 mg DAILY PO 04/14/17 09:00 05/14/17 08:59 04/14/17 08:02 10 MG Tramadol HCl (Ultram Tab) 50 mg Q6 PRN PO 04/13/17 21:00 05/13/17 20:59 Sotalol HCl (Betapace Tab) 160 mg BID PO 04/14/17 09:00 05/14/17 08:59 04/14/17 08:03 160 MG Potassium Chloride (Klor-Con M10) 40 meq DAILY PO 04/14/17 09:00 05/14/17 08:59 04/14/17 08:02 40 MEQ Prochlorperazine Edisylate 5 mg/ Syringe 5 ml @ 5 mls/min Q6H PRN IV 04/13/17 21:00 05/13/17 20:59 Morphine Sulfate (MoRPHine SULFATE INJ) 4 mg Q3H PRN IV 04/13/17 21:00 04/27/17 20:59 Ipratropium [place] (Atrovent 0.02% 0.5MG/2.5ML Neb) 0.5 mg Q4H PRN INH 04/13/17 22:30 05/13/17 22:29 Levalbuterol (Xopenex 1.25MG/ 0.5ML Neb) 1.25 mg Q4H PRN INH 04/13/17 22:30 05/13/17 22:29 Atorvastatin Calcium (Lipitor Tab) 40 mg HS PO 04/14/17 21:00 05/14/17 20:59 Escitalopram Oxalate (Lexapro Tab) 20 mg HS PO 04/14/17 21:00 05/14/17 20:59 Physical Exam Vital Signs Past 12 Hours Date Time Temp Pulse Resp B/P (MAP) Pulse Ox O2 Delivery O2 Flow Rate FiO2 04/14/17 08:00 Room Air 04/14/17 07:44 36.8 77 18 118/74 (89) 95 04/14/17 04:00 Room Air 04/14/17 03:30 36.7 73 20 113/58 (76) 93 Room Air 04/14/17 00:00 Room Air 04/13/17 23:45 36.7 84 20 106/67 (80) 95 Room Air The patient is alert and oriented. Mood and affect appeared normal. He answered all questions appropriately. HEENT: Pupils are equal and reactive to light and accommodation. Extraocular movements are intact. The sclerae are anicteric. Neuro: Cranial nerves intact Neck: Patient's neck is supple. He has palpable carotid pulses bilaterally without bruits on auscultation. There is no evidence of jugular venous distention. The thyroid is not enlarged. Lungs: Clear to auscultation bilaterally. He has good air movement without use of accessory muscles. No rales wheezes or rhonchi. Cardiac: Heart demonstrates an irregular rate and rhythm. Normal S1 and mechanical S2. Soft crescendo systolic murmur. Chest: Well-healed sternotomy scar Pulses: The patient has palpable radial pulses bilaterally that are equal in intensity Extremities: There was no evidence of hypoperfusion. There is no cyanosis or clubbing. There is no edema. Skin: I did not appreciate any rashes on examination today. Data Laboratory Results: Last 24 Hours Test 04/13/17 17:45 04/13/17 19:41 04/14/17 06:54 White Blood Count 9.19 K/uL 6.53 K/uL Red Blood Count 4.90 M/uL 4.91 M/uL Hemoglobin 13.3 g/dL 13.0 g/dL Hematocrit 41.2 % 41.6 % Mean Corpuscular Volume 84.1 fL 84.7 fL Mean Corpuscular Hemoglobin 27.1 pg 26.5 pg Mean Corpuscular Hemoglobin Concent 32.3 g/dl 31.3 g/dl Platelet Count 218 K/uL 201 K/uL Mean Platelet Volume 9.7 fL 9.4 fL Neutrophils (%) (Auto) 72.5 % 64.6 % Lymphocytes (%) (Auto) 19.9 % 24.2 % Monocytes (%) (Auto) 6.2 % 8.3 % Eosinophils (%) (Auto) 1.0 % 2.1 % Basophils (%) (Auto) 0.3 % 0.5 % Neutrophils # (Auto) 6.66 K/uL 4.22 K/uL Lymphocytes # (Auto) 1.83 K/uL 1.58 K/uL Monocytes # (Auto) 0.57 K/uL 0.54 K/uL Eosinophils # (Auto) 0.09 K/uL 0.14 K/uL Basophils # (Auto) 0.03 K/uL 0.03 K/uL RDW Standard Deviation 51.9 fL 52.3 fL RDW Coefficient of Variation 16.8 % 16.9 % Immature Granulocyte % (Auto) 0.1 % 0.3 % Immature Granulocyte # (Auto) 0.01 K/uL 0.02 K/uL Prothrombin Time 26.1 SECONDS 24.7 SECONDS Prothromb Time International Ratio 2.5 2.4 Activated Partial Thromboplast Time 30.6 SECONDS Partial Thromboplastin Ratio 1.2 Sodium Level 140 mmol/L 140 mmol/L Potassium Level 3.5 mmol/L 3.8 mmol/L Chloride Level 107 mmol/L 106 mmol/L Carbon Dioxide Level 26 mmol/L 27 mmol/L Anion Gap 7.0 mmol/L 7.0 mmol/L Blood Urea Nitrogen 17 mg/dl 16 mg/dl Creatinine 1.04 mg/dl 0.87 mg/dl Est Creatinine Clear Calc Drug Dose 56.8 ml/min 66.8 ml/min Estimated GFR () 63.5 78.8 Estimated GFR (Non- 54.8 68.0 BUN/Creatinine Ratio 16.6 18.3 Random Glucose 142 mg/dl 113 mg/dl Estimated Average Glucose 146 mg/dl Hemoglobin A1c 6.7 % Calcium Level 8.9 mg/dl 8.6 mg/dl Magnesium Level 1.9 mg/dl Pro-B-Type Natriuretic Peptide 3984 pg/ml Thyroid Stimulating Hormone (TSH) 1.470 uIu/ml Bedside Troponin I < 0.030 ng/ml Imaging: Chest x-rays obtained demonstrated some evidence of mild pulmonary vascular congestion EKG: Atrial fibrillation. Right bundle-branch block Telemetry reviewed: Atrial fibrillation with rapid ventricular response Echocardiogram performed 12/2014: Ejection fraction 45-50 percent. Mechanical aortic valve with mild prosthetic valvular stenosis. [id number] mitral regurgitation Assessment & Plan 1. Atrial fibrillation: Patient had persistent atrial fibrillation. It is unclear of all of her symptoms are related to the arrhythmia, but it is certainly likely they contribute. She may have an element diastolic dysfunction which contributes to her symptoms as well in the setting of atrial arrhythmia. She has been on escalating doses of sotalol but not been in a sinus rhythm. I think it is imperative at this point that we assess the role of sotalol in her therapy and attempt a repeat cardioversion. If she is unable to maintain sinus rhythm on the highest dose of sotalol and she will require discontinuation and alternate treatments. This could include a switch to an alternate agent, catheter based therapy or even AV node ablation and pacemaker implantation as a last resort. She has been appropriately anticoagulated for both her aortic valve and atrial fibrillation. She should will be maintained on warfarin indefinitely 2. Aortic valve disease: Patient underwent aortic root repair for thoracic aneurysm as well as mechanical aortic valve replacement 11 years ago. Her last echocardiogram in 2014 she had an element of mild aortic valve stenosis. Repeat evaluation could be considered especially in light of her progressive symptoms of dyspnea. 3. Cardiomyopathy: This was felt to be tachycardia induced previously. She has had somewhat higher rates over the past few weeks. Some of her symptoms could be related to reduced LV systolic function. Once again, re-evaluation could be considered during this admission. 4. Dyspnea: Likely related to a combination of her arrhythmia as well as pulmonary vascular congestion. Her N terminal proBNP was elevated at the time of admission. This less specific in the setting of her arrhythmia. She has been on diuretic therapy and slowly losing weight. We could consider switching her to Bumex as opposed to Lasix. Her renal function electrolytes appear to be stable. After her last cardioversion she did not have significant improvement in her symptoms. I think she returns to sinus rhythm but continues to have element of dyspnea we may need to be more aggressive with her diuretic therapy.
[2017-04-14] MEDS ORDERED: EpHEDrine SULFATE 50MG/5ML SYR ONE (11:42)
[2017-04-14] MEDS ORDERED: PROPOFOL IV EMULSION 10 MG/ML 20 ML VIAL IV ONE (11:42)
[2017-04-14] MEDS ORDERED: LIDOCAINE HCL 2% 2 ML VIAL (20MG/ML) ONE (11:42)
[2017-04-14] MEDS ORDERED: GLUCOSE 40% GEL 15 GM TUBE PO PRN (11:45)
[2017-04-14] MEDS ORDERED: GLUCAGON FOR INJ 1 MG VIAL SQ PRN (11:45)
[2017-04-14] MEDS ORDERED: GLUCOSE 10 TABS/TUBE PO PRN (11:45)
[2017-04-14] MEDS ORDERED: DEXTROSE 50% 50 ML SYR IV PRN (11:45)
--- NOTE | 2017-04-14 11:47 | Progress Note ---
Internal Med Progress Note Date of Service: Apr 14, 2017. Provider Documentation: SUBJECTIVE: Seen and examined at bedside Reports GAYTAN and intermittent palpitations Denies chest pain, SOB, Dizziness Had Cardioversion today No other complaints Family at bedside OBJECTIVE: Vital Signs-as noted below Physical Exam: General Appearance:Moderately built and nourished, no apparent distress Head: normocephalic, Atraumatic Eyes: normal inspection, EOMI, PERRL Neck: supple, Trachea midline Respiratory/Chest: Normal breath sounds, CTA Cardiovascular: Irregularly Irregular, + murmur Abdomen/GI:Soft, Non tender, Bowel sounds present Extremities/Musculoskelatal:normal inspection, no edema Neurologic/Psych:AAOX3, grossly no focal neurological deficits Skin: normal color, warm Lab data as noted below. ASSESSMENT & PLAN: Persistent Afib RVR Failed Cardioversion previously Continue Sotolol and Metoprolol On Coumadin for anticoagulation Monitor INR:2.4 today S/P Cardioversion today: converted to Sinus Appreciate Cardiology Input Dyspnea on Exertion: Likely multifactorial: Afib, Pulmonary congestion and component of Cardiomyopathy Acute on chronic systolic CHF Plan to resume diuretics as able H/O Aortic Valve disease S/P mechanical AVR Continue current medications Continue coumadin for anticoagulation Hypertension: Stable monitor DM II: New diagnosis A1C:6.7 Start ISS, monitor BGs Patient would like to discuss with PCP before starting medications Diabetic education done Past tobacco abuse. DVT px: On Coumadin Code Status: Full code Disposition: Plan to discharge home today Follow up with your PCP in 1 week Follow up with your Pumper Gauger in 1 week Seek immediate medical attention if your symptoms reoccur or worsen Discuss with your PCP regarding starting on Diabetic medications as advised Vital Signs: Date Time Temp Pulse Resp B/P (MAP) Pulse Ox O2 Delivery O2 Flow Rate FiO2 04/14/17 15:35 Room Air 04/14/17 15:16 36.8 67 20 103/66 (78) 93 Room Air 04/14/17 12:00 Room Air 04/14/17 11:37 52 16 91/48 (62) 96 Nasal Cannula 4 04/14/17 11:30 107 16 95/47 98 Nasal Cannula 4 04/14/17 11:26 107 16 126/104 98 Nasal Cannula 4 04/14/17 11:22 36.7 92 18 107/65 (79) 96 04/14/17 11:05 36.8 68 20 127/64 (85) 96 Room Air 04/14/17 08:00 Room Air 04/14/17 07:44 36.8 77 18 118/74 (89) 95 04/14/17 04:00 Room Air 04/14/17 03:30 36.7 73 20 113/58 (76) 93 Room Air 04/14/17 00:00 Room Air 04/13/17 23:45 36.7 84 20 106/67 (80) 95 Room Air 04/13/17 21:58 36.5 76 20 130/80 93 Room Air 04/13/17 21:30 75 20 122/75 98 04/13/17 21:04 78 20 125/77 97 Room Air 04/13/17 20:56 84 20 135/87 97 Room Air 04/13/17 19:41 85 20 138/95 96 Room Air 04/13/17 19:39 96 Room Air 04/13/17 19:00 102 22 152/111 96 Room Air Lab Results: Results Past 24 Hours Test 04/13/17 19:41 04/14/17 06:54 Range/Units Bedside Troponin I < 0.030 0-0.045 ng/ml White Blood Count 6.53 4.8-10.8 K/uL Red Blood Count 4.91 4.2-5.4 M/uL Hemoglobin 13.0 12.0-16.0 g/dL Hematocrit 41.6 37-47 % Mean Corpuscular Volume 84.7 80-100 fL Mean Corpuscular Hemoglobin 26.5 25-34 pg Mean Corpuscular Hemoglobin Concent 31.3 32-36 g/dl Platelet Count 201 130-400 K/uL Mean Platelet Volume 9.4 7.4-10.4 fL Neutrophils (%) (Auto) 64.6 % Lymphocytes (%) (Auto) 24.2 % Monocytes (%) (Auto) 8.3 % Eosinophils (%) (Auto) 2.1 % Basophils (%) (Auto) 0.5 % Neutrophils # (Auto) 4.22 1.4-6.5 K/uL Lymphocytes # (Auto) 1.58 1.2-3.4 K/uL Monocytes # (Auto) 0.54 0.11-0.59 K/uL Eosinophils # (Auto) 0.14 0-0.5 K/uL Basophils # (Auto) 0.03 0-0.2 K/uL RDW Standard Deviation 52.3 36.4-46.3 fL RDW Coefficient of Variation 16.9 11.5-14.5 % Immature Granulocyte % (Auto) 0.3 % Immature Granulocyte # (Auto) 0.02 0.00-0.02 K/uL Prothrombin Time 24.7 9.0-12.0 SECONDS Prothromb Time International Ratio 2.4 0.9-1.1 Sodium Level 140 136-145 mmol/L Potassium Level 3.8 3.5-5.1 mmol/L Chloride Level 106 98-107 mmol/L Carbon Dioxide Level 27 21-32 mmol/L Anion Gap 7.0 3-11 mmol/L Blood Urea Nitrogen 16 7-18 mg/dl Creatinine 0.87 0.60-1.20 mg/dl Est Creatinine Clear Calc Drug Dose 66.8 ml/min Estimated GFR () 78.8 Estimated GFR (Non- 68.0 BUN/Creatinine Ratio 18.3 10-20 Random Glucose 113 70-99 mg/dl Calcium Level 8.6 8.5-10.1 mg/dl
--- NOTE | 2017-04-14 12:50 | [facility] Operative Report ---
Operative Report Date of Service Apr 14, 2017. Operative Report Procedure performed: Cardioversion Indication: Atrial fibrillation Staff aviation safety equipment technician: Andrea Rios MD Procedure in detail: The patient was informed of the risks benefits and alternatives to the intended procedure. She understood such which proceed. She was taken to the cardiac catheterization suite holding area. A general anesthetic was administered by the Anesthesiology Service. Once appropriately anesthetized, the patient was cardioverted using 200 joules delivered in a biphasic fashion. This returned the patient to sinus rhythm. The patient tolerated procedure well, there were no immediate complications. Patient was neurologically intact subsequent to the procedure. Impression: Successful cardioversion from atrial flutter to normal sinus rhythm I attest to the content of the Intraoperative Record and any orders documented therein. Any exceptions are noted below.
[2017-04-14] MEDS ORDERED: INSULIN ASPART 100 UNITS/ML 3 ML PEN SC SCH (16:15)
--- NOTE | 2017-04-14 18:27 | Discharge Summary ---
Discharge Summary Date of Service Apr 14, 2017. Discharge Summary Admission Date: Apr 13, 2017 at 19:47 Discharge Date: Apr 14, 2017 Discharge Disposition: Home Principal Diagnosis: fib RVR S/P cardioversion, New diagnosis DM II Procedures: S/P Cardioversion CXR: 1. Cardiomegaly and diffuse elevation of the interstitium, likely secondary to mild congestive failure/fluid overload 2. No evidence of lobar consolidation Consultations: Cardiology Pending Studies/Follow-Up: Follow up with your PCP in 1 week Follow up with your Risk Prevention Engineer in 1 week Seek immediate medical attention if your symptoms reoccur or worsen Discuss with your PCP regarding starting on Diabetic medications as advised Medication Reconciliation Continued Medications: Acetaminophen (Tylenol) 500 Mg Tab 500 MG PO PRN for Pain, TAB Amoxicillin (Amoxicillin) 500 Mg Cap PRN for Documentation Atorvastatin (Lipitor) 40 Mg Tab 1 TAB PO DAILY Escitalopram Oxalate (Escitalopram Oxalate) 20 Mg Tab 1 TAB PO DAILY Furosemide (Lasix) 80 Mg Tab Unknown Dose PO DAILY PRN for WATER RETENTION, TAB PATIENT SAID SHE ONLY TAKES THIS WHENEVER SHE HAS WATER RETENTION WHICH ISN'T VERY OFTEN Loratadine (Claritin) 10 Mg Tab 10 MG PO DAILY, TAB Metoprolol Tartrate (Metoprolol Tartrate) 50 Mg Tab 100 MG PO BID Potassium Chloride (Potassium Chloride Er) 10 Meq Cap 1 CAP PO UD TAKE 1 TABLET DAILY ON DAYS THAT FUROSEMIDE IS TAKEN; 30 Days Quantity Sotalol Hcl (Sotalol Hcl) 160 Mg Tab 160 MG PO BID Tramadol HCl (Tramadol HCl) 50 Mg Tab 50 MG PO Q6 PRN for Pain Warfarin Sod (Jantoven) 5 Mg Tab 5 MG PO 2XWK, TAB TAKE 5MG EVERY MONDAY AND MONDAY Warfarin Sod (Coumadin) 7.5 Mg Tab 7.5 MG PO 5XWK TAKE 7.5MG EVERYDAY EXCEPT MONDAY AND MONDAY Admission Information HPI (per Admitting provider): CHIEF COMPLAINT: Atrial fibrillation. HISTORY OF PRESENT ILLNESS: History obtained from the patient and records. Medical history significant for chronic systolic heart failure EF 45-50% TTE 2014, history of mechanical AVR, atrial fibrillation on Coumadin, hypertension, urolithiasis, past tobacco abuse, history of difficult intubation as per records Recent confinement last February 2015 for acute bronchitis. As per patient, the last 3 months, patient noted dyspnea on exertion, usual orthopnea. No chest pain. Denies unusual weight gain or leg swelling, although admits to some chest and abdominal fullness. No cough symptoms. Denies dietary indiscretion. Compliant with medications. Symptoms persistent despite elective cardioversion done for AF last February 2017 by [facility]. As per patient she relapse into A. fib a week after cardioversion. Has had monthly follow ups at [facility] shop router's office the last 3 months. Diuretic doses tweaked, Sotalol dose increased from 80 mg to 160 b.i.d. No improvement of breathing symptoms. Had a followup at heart doctor's office today. Patient directed to the Emergency Room. Noted to be in rapid AFib in ER. IV Cardizem started in the ER. Physical Exam (per Admitting): PHYSICAL EXAMINATION: VITAL SIGNS: Blood pressure noted to be 128/77, pulse rate 134, later 102; RR 24, temperature 36.7, sats 94% on room air. GENERAL: Noted to be slightly anxious, obese, pleasant, no respiratory distress. SKIN: Normal color, warm. HEENT: Sells palpebral conjunctivae. No ptosis. Dry mucosa. NECK: Short neck, supple. CHEST: Decreased breath sounds. No tenderness. HEART: Healed incisional sternal scar. Irregular, systolic murmur. ABDOMEN: Some distention, nontender. EXTREMITIES: Minimal LE edema, no tenderness. No tenderness NE : Coherent, no gross focality. Hospital Course Persistent Afib RVR Failed Cardioversion previously Continue Sotolol and Metoprolol On Coumadin for anticoagulation Monitor INR:2.4 today S/P Cardioversion today: converted to Sinus Appreciate Cardiology Input Dyspnea on Exertion: Likely multifactorial: Afib, Pulmonary congestion and component of Cardiomyopathy Acute on chronic systolic CHF Plan to resume diuretics as able H/O Aortic Valve disease S/P mechanical AVR Continue current medications Continue coumadin for anticoagulation Hypertension: Stable monitor DM II: New diagnosis A1C:6.7 Start ISS, monitor BGs Patient would like to discuss with PCP before starting medications Diabetic education done Past tobacco abuse. DVT px: On Coumadin Code Status: Full code Disposition: Plan to discharge home today Follow up with your PCP in 1 week Follow up with your Risk Prevention Engineer in 1 week Seek immediate medical attention if your symptoms reoccur or worsen Discuss with your PCP regarding starting on Diabetic medications as advised Total time spent on discharge = 33 minutes This includes examination of the patient, discharge planning, medication reconciliation, and communication with other providers. Discharge Instructions Discharge Instructions Date of Service Apr 14, 2017. Admission Reason for Admission: Chf Exacerbation Discharge Discharge Diagnosis / Problem: Afib RVR S/P cardioversion, New diagnosis DM II Discharge Goals Goal(s): Decrease discomfort, Improve function Activity Recommendations Activity Limitations: resume your previous activity Exercise/Sports Limitations: as tolerated . Instructions / Follow-Up Instructions / Follow-Up Follow up with your PCP in 1 week Follow up with your Risk Prevention Engineer in 1 week Seek immediate medical attention if your symptoms reoccur or worsen Discuss with your PCP regarding starting on Diabetic medications as advised Current Hospital Diet Patient's current hospital diet: AHA Diet (Heart Healthy), Diabetes Type 2 Diet Discharge Diet Recommended Diet: AHA Diet (Heart Healthy), Diabetes Type 2 Diet Pending Studies Studies pending at discharge: no Laboratory Results Hemoglobin A1c Test 04/13/17 17:45 Range/Units Estimated Average Glucose 146 mg/dl Hemoglobin A1c 6.7 H 4.5-5.6 % Medical Emergencies . Who to Call and When: Medical Emergencies: If at any time you feel your situation is an emergency, please call 911 immediately. . Non-Emergent Contact Non-Emergency issues call your: Primary Care Provider, Risk Prevention Engineer Call Non-Emergent contact if: you have a fever, your pain is not controlled, your pain is worsening, your pain is unusual for you, your pain is concerning you, you have any medication questions Seek immediate medical attention if your symptoms reoccur or worsen . . "Provider Documentation" section prepared by Sorin Clifford. . <Electronically signed by Sorin Clifford MD> Signed: 04/14/17 [id number] Signed: The status of this report is Signed * If report status is Draft, the document has not been finalized by the responsible provider.
== END 2017-04-14 19:02 | disposition home or self-care (01) | DRG 308 ==
LOC: C.EDB 16:57 → C.2T 19:47 → ENRESERV 20:13
PROVIDERS: ADMIT Internal Medicine; ATTEND Internal Medicine
PROC: 5A2204Z Restoration of Cardiac Rhythm, Single (ICD-10-PCS; principal; 2017-04-14 10:00)
DX: I48.1 Persistent atrial fibrillation (principal); I50.23 Acute on chronic systolic (congestive) heart failure; E78.5 Hyperlipidemia, unspecified; I11.0 Hypertensive heart disease with heart failure; E11.9 Type 2 diabetes mellitus without complications; I34.0 Nonrheumatic mitral (valve) insufficiency; I42.9 Cardiomyopathy, unspecified; Z95.2 Presence of prosthetic heart valve; Z87.891 Personal history of nicotine dependence; Z91.041 Radiographic dye allergy status; Z91.040 Latex allergy status; Z79.01 Long term (current) use of anticoagulants; Z87.442 Personal history of urinary calculi

== ENCOUNTER 2021-06-17 22:17 | Inpatient (IN) ==
[2021-06-17] MEDS ORDERED: METOPROLOL TARTRATE 1 MG/ML VIAL IV STA (22:48)
[2021-06-17] MEDS ORDERED: BUMETANIDE 1 MG in SYRINGE 0 ML IV ONE (22:48)
--- NOTE | 2021-06-17 22:50 | Emergency Department Note ---
Impression & Plan Atrial fibrillation with RVR, Acute exacerbation of CHF (congestive heart failure), Shortness of breath ED Provider Note NAME: TSERING CONTRERAS AGE: 71 SEX: F : 1950 ARRIVES VIA: Walk-In INFORMANT: Patient, ED PROVIDER(S): Aries Penn MD Chief Complaint: Shortness of breath HPI: Patient presents for shortness of breath ongoing the last several days. The patient is complained of dyspnea on exertion. The patient states that she cannot lay flat so she does not know if she has had associated orthopnea. The patient has had occasional nonproductive cough. No fevers or chills. Patient denies any smoking history. The patient was out for her son's birthday and states that she had a couple of sips of an alcoholic beverage but otherwise no recent alcohol use. Patient denies any tobacco or drug use. Patient denies any recent changes or missed doses in her medications other than that she has not taken her evening medications. Patient does not believe that she has had a weight gain or leg swelling. Patient states she is otherwise compliant with her medications and does follow with Dr. Villela with cardiology. Patient denies any abdominal pain nausea vomiting. Patient does take Coumadin for history of A. fib. ROS: See HPI for pertinent positives and negatives. A total of 10 systems were reviewed and otherwise negative. Past medical history: See below Surgical history: See below Social history: See below Physical Exam: GENERAL: Mild tachypnea and shallow breathing noted. EYE EXAM: Normal conjunctiva. PERRL, no anisocoria and EOM's grossly intact w/o pain. OROPHARYNX: Moist mucus membranes. Grossly normal dentition. NECK: Supple, no nuchal rigidity, no adenopathy, non-tender. No signs of meningismus. LUNGS: Scant crackles bilaterally, normal chest wall mechanics. HEART: Irregularly irregular and tachycardic, no MRG. ABDOMEN: Abdomen soft, non-tender, normo-active bowel sounds, no masses, no rebound or guarding. BACK: No CVA TTP. SKIN: No rashes and no bruising. UPPER EXTREMITIES: Upper extremities are grossly normal. LOWER EXTREMITIES: Grossly normal, 1+ symmetric lower extremity edema. NEURO EXAM: A&O x3, cranial nerves II-XII grossly intact, normal speech, moves all 4 extremities on command w/o issue. Differential diagnoses: Reactive airway disease, pneumonia, pneumothorax, COPD, CHF, infections, cardiac ischemia, pulmonary embolism, musculoskeletal, g astrointestinal, as well as other pathologies. Course: Patient was seen and evaluated the bedside. Full history physical exam was performed. EKG interpreted by me Kathie kendrick with RVR, rate of 123, borderline QRS, right bundle branch block. Patient's right bundle branch block is old from comparison July 24, 2017. Imaging Studies: Chest x-ray likely with volume overload. Cardiac monitoring: An order was placed for continuous cardiac monitoring. The monitor shows a rate of 112 with irregularly irregular and tachycardic rhythm. MDM: Patient was seen due to concern for shortness of breath. Blood work was obtained. Patient was ordered a dose of Bumex and Lopressor. Patient is a normal white count H&H and platelet count. The patient's kidney function is unremarkable. The patient does have mild subtherapeutic INR at 1.8 patient's kidney function is unremarkable. I did check the patient's weight and she has increased 3 kg since her last visit here. The patient does have mildly low ma gnesium and elevated BNP. High-sensitivity troponin is slightly elevated. Digoxin level is low. COVID-negative. Chest x-ray by my read shows some mild volume overload. I did speak with the on-call hospitalist Dr. Cornejo and the patient was admitted to the [facility] service. I did convey the plan to the patient and she is agreeable with the plan of care. Patient does states she feels improved. Critical Care: I have personally spent 45 minutes of critical care time in direct management of this patient. This includes bedside care, interpretation of diagnostic studies, and testing, discussion with consultants, patient, and family members, and other require inpatient management activities. This 45 minutes is in excess of all separately billable procedures. Past Med/Surg History Medical History (Updated 06/18/21 @ 00:49 by Aries Penn MD) Allergic rhinitis Anxiety Arthritis History of nephrolithiasis Ureteral stricture Surgical History History of section History of oophorectomy, unilateral S/P tonsillectomy Family History Brother Heart disease Diabetes Prostate cancer Father Heart disease Diabetes Prostate cancer Mother Hypertension Social History Smoking Status: Former smoker Preferred Language: Serbian Communication Ability: Effective marital status: Feels Safe at Home: Yes Allergies Allergies Allergy/AdvReac Type Severity Reaction Status Date / Time Iodinated Contrast Media Allergy Mild ` Verified 02/15/21 11:47 latex Allergy Unknown skin red Verified 02/15/21 11:47 and blistered ragweed pollen Allergy Verified 02/15/21 11:47 Home Meds Home Medications Medication Instructions Recorded Confirmed albuterol sulfate 90 mcg/actuation 2 puffs INHALATION Q6H PRN gm 09/11/18 02/15/21 aerosol inhaler acetaminophen 500 mg tablet 500 mg PO Q4H PRN tab 09/17/18 02/15/21 amoxicillin 500 mg capsule 2,000 mg PO .COMPLEX cap 09/17/18 02/15/21 lorazepam 1 mg tablet 1 mg PO DAILY PRN #10 tab 09/17/18 02/15/21 promethazine 12.5 mg tablet 12.5 mg PO Q4H PRN #30 tab 09/17/18 02/15/21 warfarin 6 mg tablet See Rx Instructions PO .COMPLEX 09/17/18 02/15/21 tab potassium chloride 10 mEq 10 meq PO DAILY #30 cap 09/24/19 02/15/21 capsule,extended release empagliflozin 25 mg tablet 25 mg PO DAILY 11/10/20 02/15/21 (Jardiance) metformin 850 mg tablet 850 mg PO DAILY 11/10/20 02/15/21 trazodone 50 mg tablet 50 mg PO HS tab 11/10/20 02/15/21 Previous Rx's Medication Instructions Recorded metolazone 2.5 mg tablet 2.5 mg PO DAILY PRN #15 tab 12/25/19 bumetanide 1 mg tablet See Rx Instructions .ROUTE 02/03/20 .COMPLEX #60 tab escitalopram oxalate 20 mg tablet 20 mg PO DAILY #90 tab 09/10/20 metoprolol tartrate 50 mg tablet See Rx Instructions PO DAILY #630 12/17/20 tab atorvastatin 40 mg tablet 40 mg PO HS #90 tab 03/09/21 digoxin 125 mcg (0.125 mg) tablet 125 mcg PO Q2D #90 tab 04/27/21 Results & Data (ED) Vital Signs Vital Signs - 24 hr 06/17/21 22:23 06/17/21 23:05 Temperature 36.6 C Temperature Source Temporal Artery Scan Pulse Rate 111 H 94 H Respiratory Rate 18 Respiratory Effort / Characteristics Non-Labored Spontaneous Respiratory Depth Normal Respiratory Pattern Regular Blood Pressure 140/90 Blood Pressure Position Sitting Pulse Oximetry 91 Oxygen Delivery Method Room Air Sepsis Recent Fever Within 48 Hours No Sepsis New/Unexplained Change in Mental Status No Sepsis Action Taken by Nursing No Action Required Home Medications Current Medication List: was personally reviewed by me Laboratory Data Attestation: I reviewed the patient's lab results. Result diagrams: 06/17/21 22:49 06/17/21 22:49 Lab Results 06/17/21 06/17/21 06/17/21 Range/Units 22:49 22:49 22:49 WBC 9.90 (4.8-10.8) K/uL RBC 4.94 (4.2-5.4) M/uL Hgb 13.2 (12.0-16.0) g/dL Hct 42.1 (37-47) % MCV 85.2 (80-100) fL MCH 26.7 (25-34) pg MCHC 31.4 L (32-36) g/dL Plt Count 231 (130-400) K/uL Immature Gran % (Auto) 0.2 % Neut % (Auto) 79.6 % Lymph % (Auto) 14.0 % [place] % (Auto) 4.5 % Eos % (Auto) 1.4 % Baso % (Auto) 0.3 % Neut # (Auto) 7.87 H (1.4-6.5) K/uL Lymph # (Auto) 1.39 (1.2-3.4) K/uL [place] # (Auto) 0.45 (0.11-0.59) K/uL Eos # (Auto) 0.14 (0-0.5) K/uL Baso # (Auto) 0.03 (0-0.2) K/uL Immature Gran # (Auto) 0.02 (0.00-0.02) K/uL PT 18.9 H (9.0-12.0) Seconds INR 1.8 H (0.9-1.1) APTT 29.5 (21.0-31.0) Seconds PTT Ratio 1.1 Sodium (136-145) mmol/L Potassium (3.5-5.1) mmol/L Chloride (98-107) mmol/L Carbon Dioxide (21-32) mmol/L Anion Gap (3-11) BUN (6-23) mg/dl Creatinine (0.6-1.2) mg/dl Est Cr Clr Drug Dosing ml/min Est GFR ( Amer) ml/min Est GFR (Non-Af Amer) ml/min BUN/Creatinine Ratio (10-20) Glucose (70-99(Fasting)) mg/dl Calcium (8.5-10.1) mg/dl Magnesium (1.7-2.4) mg/dl Total Bilirubin (0.2-1.0) mg/dl AST (13-39) U/L ALT (7-52) U/L Alkaline Phosphatase (34-104) U/L Troponin I High Sens 24.0 H (0-14) pg/ml B-Natriuretic Peptide (0-100) pg/ml Total Protein (6.0-8.3) gm/dl Albumin (3.4-5.0) gm/dl Globulin (2.5-4.0) gm/dl Albumin/Globulin Ratio (0.9-2) Digoxin (0.8-2.0) ng/ml SARS-CoV-2, RNA, NAAT (NEGATIVE) 06/17/21 06/17/21 06/17/21 Range/Units 22:49 22:49 23:22 WBC (4.8-10.8) K/uL RBC (4.2-5.4) M/uL Hgb (12.0-16.0) g/dL Hct (37-47) % MCV (80-100) fL MCH (25-34) pg MCHC (32-36) g/dL Plt Count (130-400) K/uL Immature Gran % (Auto) % Neut % (Auto) % Lymph % (Auto) % [place] % (Auto) % Eos % (Auto) % Baso % (Auto) % Neut # (Auto) (1.4-6.5) K/uL Lymph # (Auto) (1.2-3.4) K/uL [place] # (Auto) (0.11-0.59) K/uL Eos # (Auto) (0-0.5) K/uL Baso # (Auto) (0-0.2) K/uL Immature Gran # (Auto) (0.00-0.02) K/uL PT (9.0-12.0) Seconds INR (0.9-1.1) APTT (21.0-31.0) Seconds PTT Ratio Sodium 138 (136-145) mmol/L Potassium 3.8 (3.5-5.1) mmol/L Chloride 102 (98-107) mmol/L Carbon Dioxide 25 (21-32) mmol/L Anion Gap 11 (3-11) BUN 15 (6-23) mg/dl Creatinine 0.68 (0.6-1.2) mg/dl Est Cr Clr Drug Dosing 76.8 ml/min Est GFR ( Amer) 100.6 ml/min Est GFR (Non-Af Amer) 86.8 ml/min BUN/Creatinine Ratio 22.1 H (10-20) Glucose 160 H (70-99(Fasting)) mg/dl Calcium 9.2 (8.5-10.1) mg/dl Magnesium 1.6 L (1.7-2.4) mg/dl Total Bilirubin 1.5 H (0.2-1.0) mg/dl AST 24 (13-39) U/L ALT 24 (7-52) U/L Alkaline Phosphatase 160 H (34-104) U/L Troponin I High Sens (0-14) pg/ml B-Natriuretic Peptide 802 H (0-100) pg/ml Total Protein 7.1 (6.0-8.3) gm/dl Albumin 4.1 (3.4-5.0) gm/dl Globulin 3.0 (2.5-4.0) gm/dl Albumin/Globulin Ratio 1.4 (0.9-2) Digoxin 0.3 L (0.8-2.0) ng/ml SARS-CoV-2, RNA, NAAT (NEGATIVE) 06/17/21 Range/Units 23:22 WBC (4.8-10.8) K/uL RBC (4.2-5.4) M/uL Hgb (12.0-16.0) g/dL Hct (37-47) % MCV (80-100) fL MCH (25-34) pg MCHC (32-36) g/dL Plt Count (130-400) K/uL Immature Gran % (Auto) % Neut % (Auto) % Lymph % (Auto) % [place] % (Auto) % Eos % (Auto) % Baso % (Auto) % Neut # (Auto) (1.4-6.5) K/uL Lymph # (Auto) (1.2-3.4) K/uL [place] # (Auto) (0.11-0.59) K/uL Eos # (Auto) (0-0.5) K/uL Baso # (Auto) (0-0.2) K/uL Immature Gran # (Auto) (0.00-0.02) K/uL PT (9.0-12.0) Seconds INR (0.9-1.1) APTT (21.0-31.0) Seconds PTT Ratio Sodium (136-145) mmol/L Potassium (3.5-5.1) mmol/L Chloride (98-107) mmol/L Carbon Dioxide (21-32) mmol/L Anion Gap (3-11) BUN (6-23) mg/dl Creatinine (0.6-1.2) mg/dl Est Cr Clr Drug Dosing ml/min Est GFR ( Amer) ml/min Est GFR (Non-Af Amer) ml/min BUN/Creatinine Ratio (10-20) Glucose (70-99(Fasting)) mg/dl Calcium (8.5-10.1) mg/dl Magnesium (1.7-2.4) mg/dl Total Bilirubin (0.2-1.0) mg/dl AST (13-39) U/L ALT (7-52) U/L Alkaline Phosphatase (34-104) U/L Troponin I High Sens (0-14) pg/ml B-Natriuretic Peptide (0-100) pg/ml Total Protein (6.0-8.3) gm/dl Albumin (3.4-5.0) gm/dl Globulin (2.5-4.0) gm/dl Albumin/Globulin Ratio (0.9-2) Digoxin (0.8-2.0) ng/ml SARS-CoV-2, RNA, NAAT NEGATIVE (NEGATIVE) Administered Medications Discontinued Medications Bumetanide 1 mg/ Syringe 4 mls @ 4 mls/min IV ONE ONE Stop: 06/17/21 22:49 Last Admin: 06/17/21 23:06 Dose: 4 mls/min Documented by: [id number] Metoprolol Tartrate (Metoprolol Tartrate 1 Mg/Ml Vial) 5 mg IV NOW STA Stop: 06/17/21 22:49 Last Admin: 06/17/21 23:05 Dose: 5 mg Documented by: [id number] Discharge Plan Visit Data Chief Complaint: Shortness of Breath/Dyspnea Stated Complaint: AFIB, SOB ED Provider: Aries Penn Discharge Problem: Atrial fibrillation with RVR, Acute exacerbation of CHF (congestive heart failure), Shortness of breath Patient Disposition: Admitted As Inpatient Forms Stand Alone Forms: [facility] Prescriptions Prescriptions: No Action metolazone 2.5 mg tablet 2.5 mg PO DAILY PRN (Reason: weight gain, SOB, edema) Qty: 15 RF: 5 bumetanide 1 mg tablet See Rx Instructions .ROUTE .COMPLEX Qty: 60 RF: 2 escitalopram oxalate 20 mg tablet 20 mg PO DAILY Qty: 90 RF: 3 metoprolol tartrate 50 mg tablet See Rx Instructions PO DAILY Qty: 630 RF: 3 atorvastatin 40 mg tablet 40 mg PO HS Qty: 90 RF: 3 digoxin 125 mcg (0.125 mg) tablet 125 mcg PO Q2D Qty: 90 RF: 3 potassium chloride 10 mEq capsule, extended release 10 meq PO DAILY Qty: 30 RF: 0 trazodone 50 mg tablet 50 mg PO HS RF: 0 metformin 850 mg tablet 850 mg PO DAILY RF: 0 Jardiance 25 mg tablet 25 mg PO DAILY RF: 0 albuterol sulfate 90 mcg/actuation HFA aerosol inhaler 2 puffs inhalation Q6H PRN (Reason: shortness of breath) RF: 0 acetaminophen 500 mg tablet 500 mg PO Q4H PRNRF: 0 amoxicillin 500 mg capsule 2,000 mg PO .COMPLEX RF: 0 lorazepam 1 mg tablet 1 mg PO DAILY PRNQty: 10 RF: 0 promethazine 12.5 mg tablet 12.5 mg PO Q4H PRNQty: 30 RF: 0 warfarin 6 mg tablet See Rx Instructions PO .COMPLEX RF: 0 Referrals Referrals: Jonah Lacey, [Primary Care Provider] -
[2021-06-17 23:16] LABS: INR 1.8 (0.9-1.1); Partial Thromboplastin Ratio 1.1; Partial Thromboplastin Time 29.5 Seconds (21.0-31.0); Prothrombin Time 18.9 Seconds (9.0-12.0)
[2021-06-17 23:35] LABS: Basophils # (auto) 0.03 K/uL (0-0.2); Basophils % (auto) 0.3 %; Eosinophils # (auto) 0.14 K/uL (0-0.5); Eosinophils % (auto) 1.4 %; Hematocrit (blood only) 42.1 % (37-47); Hemoglobin 13.2 g/dL (12.0-16.0); Immature Granulocytes # (auto) 0.02 K/uL (0.00-0.02); Immature Granulocytes % (auto) 0.2 %; Lymphocytes # (auto) 1.39 K/uL (1.2-3.4); Mean Corpuscular Hemoglobin 26.7 pg (25-34); Mean Corpuscular Hgb Conc 31.4 g/dL (32-36); Mean Corpuscular Volume 85.2 fL (80-100); Monocytes # (auto) 0.45 K/uL (0.11-0.59); Monocytes % (auto) 4.5 %; Neutrophils # (auto) 7.87 K/uL (1.4-6.5); Neutrophils % (auto) 79.6 %; Platelet Count 231 K/uL (130-400); Red Blood Count 4.94 M/uL (4.2-5.4)
[2021-06-18 00:03] LABS: Albumin Globulin Ratio 1.4 (0.9-2); Albumin Level 4.1 gm/dl (3.4-5.0); BUN Creatinine Ratio 22.1 (10-20); Bilirubin,Total 1.5 mg/dl (0.2-1.0); Calcium 9.2 mg/dl (8.5-10.1); Creatinine Clr Calc Pharmacy 76.8 ml/min; Est GFR (African American) 100.6 ml/min; Est GFR (Non-African American) 86.8 ml/min; Magnesium 1.6 mg/dl (1.7-2.4); Potassium 3.8 mmol/L (3.5-5.1); Total Protein 7.1 gm/dl (6.0-8.3)
[2021-06-18] MEDS ORDERED: METOPROLOL TARTRATE 1 MG/ML VIAL IV STA (00:14)
[2021-06-18] MEDS ORDERED: POTASSIUM CHLORIDE CRTAB 20 MEQ TABCR PO STA (00:23)
--- NOTE | 2021-06-18 00:27 | History & Physical Report ---
Date of Service June 18, 2021 Assessment & Plan (1) Acute exacerbation of CHF (congestive heart failure): Plan: hx chronic diastolic heart failure secondary to nonischemic cardiomyopathy ? Secondary to uncontrolled A. fib rates history of mechanical AVR/atrial fibrillation status post cardioversion on Coumadin, INR slightly subtherapeutic hypertension, stable Troponin elevation secondary to rapid A. fib hyperlipidemia, on statin Rx DM2 currently diet controlled, patient noncompliant with home metformin and Jardiance Rx past tobacco abuse PCU Diuretic Rx Strict I/Os, daily weights, CHF education TTE, Cardiology consult Re: Decompensated heart failure Lopressor 100 mg twice daily for now, consider switching to Toprol-XL twice daily given suboptimal heart rate control on Lopressor. Supplement electrolytes Basal insulin, ISS BG goal 1 10-1 40, carb count coverage, update hemoglobin A1c DVT prophylaxis. IV heparin Coumadin bridge, INR goal between 2 and 3 (hx mechanical AVR) Full code Text document was generated using [employer] voice recognition software. It may contain grammatical or spelling errors. Kindly contact undersigned for clarification of any documentation item in question. History of Present Illness Chief Complaint: Shortness of breath Primary Care Provider: Jonah Lacey, DO History obtained from the patient and records. Medical history significant for chronic diastolic heart failure secondary to nonischemic cardiomyopathy (EF 50-55% TTE 2018), history of mechanical AVR/paroxysmal atrial fibrillation status post cardioversion on Coumadin, hypertension, hyperlipidemia, urolithiasis, DM2 currently diet controlled, past tobacco abuse, history of difficult intubation as per records Last confinement 2017 for A. fib RVR status post cardioversion. 2 days history of shortness of breath worse on exertion without chest pain or cough symptoms. Weight fluctuating but within normal range as per patient. Patient compliant with home medications. Denies dietary discretion. No unusual stress. Palpitations from A. fib. Patient noted to be in rapid A. fib upon arrival at the ER. Heart rate 110s. IV Lopressor administered at the ER. IV Bumex given for CHF. MEDICAL HISTORY: SURGICAL HISTORY: She has had aortic valve replacement, urologic procedures, tonsillectomy and section. FAMILY HISTORY: Family history of kidney stones, heart disease. 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 Allergies Allergy/AdvReac Type Severity Reaction Status Date / Time Iodinated Contrast Media Allergy Mild ` Verified 02/15/21 11:47 latex Allergy Unknown skin red Verified 02/15/21 11:47 and blistered ragweed pollen Allergy Verified 02/15/21 11:47 Home Medications Medication Instructions Recorded Confirmed Type albuterol sulfate 90 mcg/actuation 2 puffs INHALATION Q6H PRN gm 09/11/18 02/15/21 History aerosol inhaler acetaminophen 500 mg tablet 500 mg PO Q4H PRN tab 09/17/18 02/15/21 History amoxicillin 500 mg capsule 2,000 mg PO .COMPLEX cap 09/17/18 02/15/21 History lorazepam 1 mg tablet 1 mg PO DAILY PRN #10 tab 09/17/18 02/15/21 History promethazine 12.5 mg tablet 12.5 mg PO Q4H PRN #30 tab 09/17/18 02/15/21 History warfarin 6 mg tablet See Rx Instructions PO .COMPLEX 09/17/18 02/15/21 History tab potassium chloride 10 mEq 10 meq PO DAILY #30 cap 09/24/19 02/15/21 History capsule,extended release metolazone 2.5 mg tablet 2.5 mg PO DAILY PRN #15 tab 12/25/19 02/15/21 Rx bumetanide 1 mg tablet See Rx Instructions .ROUTE 02/03/20 02/15/21 Rx .COMPLEX #60 tab escitalopram oxalate 20 mg tablet 20 mg PO DAILY #90 tab 09/10/20 02/15/21 Rx empagliflozin 25 mg tablet 25 mg PO DAILY 11/10/20 02/15/21 History (Jardiance) metformin 850 mg tablet 850 mg PO DAILY 11/10/20 02/15/21 History trazodone 50 mg tablet 50 mg PO HS tab 11/10/20 02/15/21 History metoprolol tartrate 50 mg tablet See Rx Instructions PO DAILY #630 12/17/20 02/15/21 Rx tab atorvastatin 40 mg tablet 40 mg PO HS #90 tab 03/09/21 Rx digoxin 125 mcg (0.125 mg) tablet 125 mcg PO Q2D #90 tab 04/27/21 Rx Past Med/Surg History Medical History (Updated 06/18/21 @ 00:49 by Aries Penn MD) Allergic rhinitis Anxiety Arthritis History of nephrolithiasis Ureteral stricture Surgical History History of section History of oophorectomy, unilateral S/P tonsillectomy Family History Brother Heart disease Diabetes Prostate cancer Father Heart disease Diabetes Prostate cancer Mother Hypertension Social History Smoking Status: Former smoker Preferred Language: Kenyan Communication Ability: Effective marital status: Feels Safe at Home: Yes Review of Systems Review of Systems: As per HPI, all other systems reviewed and negative Physical Exam Physical Exam: GENERAL: Slightly anxious, obese, pleasant, looks younger for stated age, no respiratory distress SKIN: Normal color, warm HEENT: Bespectacled, [place] palpebral conjunctivae, no ptosis, moist buccal mucosa NECK : Supple, no tenderness CHEST : Decreased breath sounds, no tenderness HEART : Irregular, mechanical murmur ABDOMEN: Some distention, nontender EXTREMITIES : Minimal LE swelling, no LE tenderness, no other conspicuous deformities noted NEUROLOGIC : Coherent, no facial asymmetry, no other gross focality Results & Data Results & Data ([facility]) Vital Signs (Past 12 Hours) Vital Signs Temp Pulse Resp BP Pulse Ox 06/17/21 23:05 94 H 140/90 06/17/21 22:23 36.6 C 111 H 18 91 Laboratory Results Laboratory Results WBC 9.90 K/uL (4.8-10.8) 06/17/21 22:49 RBC 4.94 M/uL (4.2-5.4) 06/17/21 22:49 Hgb 13.2 g/dL (12.0-16.0) 06/17/21 22:49 Hct 42.1 % (37-47) 06/17/21 22:49 MCV 85.2 fL (80-100) 06/17/21 22:49 MCH 26.7 pg (25-34) 06/17/21 22:49 MCHC 31.4 g/dL (32-36) L 06/17/21 22:49 Plt Count 231 K/uL (130-400) 06/17/21 22:49 Immature Gran % (Auto) 0.2 % 06/17/21 22:49 Neut % (Auto) 79.6 % 06/17/21 22:49 Lymph % (Auto) 14.0 % 06/17/21 22:49 [place] % (Auto) 4.5 % 06/17/21 22:49 Eos % (Auto) 1.4 % 06/17/21 22:49 Baso % (Auto) 0.3 % 06/17/21 22:49 Neut # (Auto) 7.87 K/uL (1.4-6.5) H 06/17/21 22:49 Lymph # (Auto) 1.39 K/uL (1.2-3.4) 06/17/21 22:49 [place] # (Auto) 0.45 K/uL (0.11-0.59) 06/17/21 22:49 Eos # (Auto) 0.14 K/uL (0-0.5) 06/17/21 22:49 Baso # (Auto) 0.03 K/uL (0-0.2) 06/17/21 22:49 Immature Gran # (Auto) 0.02 K/uL (0.00-0.02) 06/17/21 22:49 PT 18.9 Seconds (9.0-12.0) H 06/17/21 22:49 INR 1.8 (0.9-1.1) H 06/17/21 22:49 APTT 29.5 Seconds (21.0-31.0) 06/17/21 22:49 PTT Ratio 1.1 06/17/21 22:49 Sodium 138 mmol/L (136-145) 06/17/21 22:49 Potassium 3.8 mmol/L (3.5-5.1) 06/17/21 22:49 Chloride 102 mmol/L (98-107) 06/17/21 22:49 Carbon Dioxide 25 mmol/L (21-32) 06/17/21 22:49 Anion Gap 11 (3-11) 06/17/21 22:49 BUN 15 mg/dl (6-23) 06/17/21 22:49 Creatinine 0.68 mg/dl (0.6-1.2) 06/17/21 22:49 Est Cr Clr Drug Dosing 76.8 ml/min 06/17/21 22:49 Est GFR ( Amer) 100.6 ml/min 06/17/21 22:49 Est GFR (Non-Af Amer) 86.8 ml/min 06/17/21 22:49 BUN/Creatinine Ratio 22.1 (10-20) H 06/17/21 22:49 Glucose 160 mg/dl (70-99(Fasting)) H 06/17/21 22:49 Calcium 9.2 mg/dl (8.5-10.1) 06/17/21 22:49 Magnesium 1.6 mg/dl (1.7-2.4) L 06/17/21 22:49 Total Bilirubin 1.5 mg/dl (0.2-1.0) H 06/17/21 22:49 AST 24 U/L (13-39) 06/17/21 22:49 ALT 24 U/L (7-52) 06/17/21 22:49 Alkaline Phosphatase 160 U/L (34-104) H 06/17/21 22:49 Troponin I High Sens 24.0 pg/ml (0-14) H 06/17/21 22:49 B-Natriuretic Peptide 802 pg/ml (0-100) H 06/17/21 23:22 Total Protein 7.1 gm/dl (6.0-8.3) 06/17/21 22:49 Albumin 4.1 gm/dl (3.4-5.0) 06/17/21 22:49 Globulin 3.0 gm/dl (2.5-4.0) 06/17/21 22:49 Albumin/Globulin Ratio 1.4 (0.9-2) 06/17/21 22:49 Digoxin 0.3 ng/ml (0.8-2.0) L 06/17/21 22:49 SARS-CoV-2, RNA, NAAT NEGATIVE (NEGATIVE) 06/17/21 23:22 Diagnostic Findings Chest x-ray as per my interpretation cardiomegaly, congestion, elevated right hemidiaphragm EKG as per my interpretation : Rate 120, A. fib, normal axis, RBBB, T wave abnormalities inferior leads (1) Acute exacerbation of CHF (congestive heart failure) Heart failure type: diastolic Qualified Code(s): I50.33 - Acute on chronic diastolic (congestive) heart failure
[2021-06-18] MEDS: MAGNESIUM SULFATE / D5W 1 GM/100 ML BAG IV SCH ×2 (00:50→03:25)
[2021-06-18] MEDS ORDERED: Heparin IV Adult Wt-Based Standard *NO* Bolus Protocol IV STA (01:34)
[2021-06-18] MEDS: HEPARIN SODIUM/DEXTROSE 25,000 UNITS/500 ML BAG IV SCH ×2 (02:17→22:04)
[2021-06-18] MEDS ORDERED: WARFARIN SOD 5 MG TAB PO ONE (02:21)
[2021-06-18] MEDS ORDERED: dilTIAZem HCl 5 MG/ML 5 ML VIAL IV STA ×2 (03:11→04:38)
[2021-06-18] MEDS ORDERED: NITROGLYCERIN SL 0.4 MG/TAB TAB SL PRN (03:49)
[2021-06-18] MEDS ORDERED: DEXTROSE 50% 50 ML SYRINGE IV PRN (03:49)
[2021-06-18] MEDS ORDERED: ACETAMINOPHEN 325 MG TAB PO PRN (03:49)
[2021-06-18] MEDS ORDERED: GLUCOSE 10 TABS/TUBE PO PRN (03:49)
[2021-06-18] MEDS ORDERED: GLUCOSE 40% GEL 15 GM TUBE PO PRN (03:49)
[2021-06-18] MEDS ORDERED: PROMETHAZINE HCL 12.5 MG in SODIUM CHLORIDE 0.9% 50 ML IV PRN (03:49)
[2021-06-18] MEDS ORDERED: CARBOHYDRATES FOR HYPOGLYCEMIA PO PRN (03:49)
[2021-06-18] MEDS ORDERED: GLUCAGON FOR INJ 1 MG VIAL SQ PRN (03:49)
[2021-06-18] MEDS ORDERED: traMADol HCL 50 MG TABLET PO PRN (03:49)
[2021-06-18] MEDS: INSULIN ASPART PER UNIT SC SCH ×5 (04:32→20:31)
[2021-06-18] MEDS: METOPROLOL TARTRATE 100 MG TAB PO SCH ×2 (05:51→20:04)
[2021-06-18 06:42] LABS: Basophils # (auto) 0.02 K/uL (0-0.2); Basophils % (auto) 0.2 %; Eosinophils # (auto) 0.11 K/uL (0-0.5); Eosinophils % (auto) 1.3 %; Hematocrit (blood only) 42.5 % (37-47); Hemoglobin 13.3 g/dL (12.0-16.0); Immature Granulocytes # (auto) 0.02 K/uL (0.00-0.02); Immature Granulocytes % (auto) 0.2 %; Lymphocytes # (auto) 1.67 K/uL (1.2-3.4); Lymphocytes % (auto) 19.4 %; Mean Corpuscular Hemoglobin 26.4 pg (25-34); Mean Corpuscular Hgb Conc 31.3 g/dL (32-36); Mean Corpuscular Volume 84.5 fL (80-100); Mean Platelet Volume 9.6 fL (7.4-10.4); Monocytes # (auto) 0.55 K/uL (0.11-0.59); Monocytes % (auto) 6.4 %; Neutrophils # (auto) 6.25 K/uL (1.4-6.5); Neutrophils % (auto) 72.5 %; Platelet Count 224 K/uL (130-400); RDW Coefficient of Variation 17.1 % (11.5-14.5); RDW Standard Deviation 52.3 fL (36.4-46.3); Red Blood Count 5.03 M/uL (4.2-5.4); White Blood Count 8.62 K/uL (4.8-10.8)
[2021-06-18 07:06] LABS: BUN Creatinine Ratio 21.3 (10-20); Creatinine Clr Calc Pharmacy 82.8 ml/min; Est GFR (African American) 104.2 ml/min; Est GFR (Non-African American) 89.9 ml/min; Magnesium 2.2 mg/dl (1.7-2.4); Potassium 3.6 mmol/L (3.5-5.1)
[2021-06-18 07:20] LABS: INR 1.8 (0.9-1.1); Prothrombin Time 18.2 Seconds (9.0-12.0)
--- NOTE | 2021-06-18 07:52 | XRay Report ---
XR chest 1V portable HISTORY: Dyspnea COMPARISON: Chest 04/13/2017. FINDINGS: The heart remains enlarged. There are poststernotomy changes and a cardiac valve prosthesis . There is mild to moderate initial pulmonary edema. No pleural effusions. No pneumothorax. IMPRESSION: Cardiomegaly with mild to moderate interstitial pulmonary edema. ACT 112: Negative or not required by law. Electronically signed by: Keith Kaur M.D. 06/18/2021 7:50 AM
[2021-06-18] MEDS ORDERED: FUROSEMIDE 40 MG/4 ML VIAL IV ONE (08:00)
[2021-06-18] MEDS: INSULIN GLARGINE SOLOSTAR 100 UNITS/ML 3 ML PEN SC SCH (08:09)
[2021-06-18 08:27] LABS: Estimated Average Glucose 177 mg/dl; Hemoglobin A1C 7.8 % (4.5-5.6)
[2021-06-18] MEDS ORDERED: METOPROLOL TARTRATE 100 MG TAB PO SCH (09:00)
[2021-06-18 09:04] LABS: Partial Thromboplastin Ratio 1.5; Partial Thromboplastin Time 42.4 Seconds (21.0-31.0)
[2021-06-18] MEDS: ESCITALOPRAM OXALATE 20 MG TAB PO SCH (09:46)
[2021-06-18] MEDS: amLODIPine BESYLATE 5 MG TAB PO SCH (09:46)
[2021-06-18] MEDS: POTASSIUM CHLORIDE CRTAB 20 MEQ TABCR PO SCH ×2 (09:46→16:57)
--- NOTE | 2021-06-18 10:41 | Communication Note ---
Date of Service: June 18, 2021 71-year-old woman with history of chronic diastolic heart failure, nonischemic cardiomyopathy, history of mechanical AVR, paroxysmal A. fib status post cardio version on Coumadin, hypertension, diabetes who presented with 2 days of shortness of breath worse with exertion and palpitations. Patient seen and examined. Reports occasional dry cough. Denies any dizziness. Reports no fluid restriction but adherent to low salt diet. Reported she had been taking diuretics every other day Exam is grossly unremarkable. Chest is clear to auscultation and no pedal edema at this time. Chest x-ray on presentation noted cardiomegaly with mild to moderate interstitial pulmonary edema Lab work notable for INR of 1.8, hemoglobin A1c of 7.8, troponin HS of 2422.5, BNP of 802 [was 627 in February 2021] Being managed for acute on chronic diastolic heart failure. Get Bumex overnight on presentation and Lasix 40 IV this morning. 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 Follow-up cardiology evaluation Monitor I's and O's. Daily weights Monitor electrolytes Patient reported son will bring her meds for proper med rec. RN notified Agree with other plans as detailed in H&P by Dr. Capellan this morning
--- NOTE | 2021-06-18 10:55 | Cardiology Consultation ---
Date of Consultation June 18, 2021 Assessment & Plan (1) Acute exacerbation of CHF (congestive heart failure): (2) Permanent atrial fibrillation: (3) Anticoagulant long-term use: (4) Cardiomyopathy, nonischemic: (5) History of mechanical aortic valve replacement: (6) Elevated troponin: 1. Congestive heart failure: She presents with an exacerbation of congestive heart failure which is probably primarily due to medication and dietary noncompliance. She will need to be diuresed. She does have slight worsening of her left ventricular function based on echocardiography which might contribute but is probably not the primary reason. 2. Atrial fibrillation: She has been in atrial fibrillation for the last several years and this is felt to be permanent. Her heart rate was a little bit fast on presentation however the heart rate control appears to be adequate in general. She should remain on anticoagulation. 3. Anticoagulation: She is anticoagulated with warfarin which is appropriate for her mechanical valve. This will also cover her for atrial fibrillation stroke prevention. 4. Cardiomyopathy: Her left ventricular ejection fraction has declined somewhat over the last several years. She is not on standard medications for left ventricular dysfunction (she is on good doses of metoprolol tartrate but this should be switched to metoprolol succinate) and she is not on an RANDAL inhibitor. Her creatinine is normal and I would start Entresto this admission, perhaps not today as her kidney function may deteriorate with diuresis. I do not think coronary evaluation is indicated at this time. 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 Hopefully with reinstitution of heart failure medications we can correct her cardiomyopathy. 5. Aortic valve: Her mechanical aortic valve prosthesis appears to be functioning well. 6. Elevated troponin: Her troponin is minimally elevated and stable, I do not believe this represents an acute ischemic event. I do not suspect her left ventricular dysfunction is due to coronary disease although it is conceivable. At this point however I would not consider invasive evaluation. A stress test could be considered but I believe this to be low yield. History of Present Illness Reason for Consultation: CHF, AF Attending Physician: Sammi Aguilar MD History of Present Illness This is a 71-year-old woman with a history of aortic valve replacement many years ago with a mechanical valve, a tachycardia induced cardiomyopathy noted in 2014 with improvement in left ventricular function with rate control and antiarrhythmic therapy. She has had several cardioversions over the years. She has had consideration for ablation and saw Dr. Alvarado at [facility] but since she has been able to maintain sinus rhythm on antiarrhythmic therapy that had not been done. She had episodes of atrial fibrillation on a roughly annual basis however over the last several years has been in atrial fibrillation on a permanent basis. She has typically not been very symptomatic with it recently. She presented to the emergency room on June 17, 2021 with shortness of breath and appeared to be in heart failure. She seems to have discontinued her diuretic and liberalized her salt intake which may be part of the issue. An echocardiogram done June 18, 2021 shows moderate left ventricular dysfunction with an ejection fraction of 30 to 35% as well as mild right ventricular systolic dysfunction and atrial dilatation. Her mechanical aortic valve is functioning properly. She does have moderate mitral regurgitation. Inferior vena cava is moderately dilated. At the time of my evaluation she was feeling better after initial treatment. She denies symptoms of chest discomfort and has had no lightheadedness, dizziness or palpitations. Allergies Allergy/AdvReac Type Severity Reaction Status Date / Time Iodinated Contrast Media Allergy Mild ` Verified 02/15/21 11:47 latex Allergy Unknown skin red Verified 02/15/21 11:47 and blistered ragweed pollen Allergy Verified 02/15/21 11:47 Home Medications Medication Instructions Recorded Confirmed Type amoxicillin 500 mg capsule 2,000 mg PO .COMPLEX cap 09/17/18 06/18/21 History promethazine 12.5 mg tablet 12.5 mg PO Q6 PRN #30 tab 09/17/18 06/18/21 History potassium chloride 10 mEq 10 meq PO DAILY #30 cap 09/24/19 06/18/21 History capsule,extended release metolazone 2.5 mg tablet 2.5 mg PO DAILY PRN #15 tab 12/25/19 06/18/21 Rx bumetanide 1 mg tablet See Rx Instructions .ROUTE 02/03/20 06/18/21 Rx .COMPLEX #60 tab escitalopram oxalate 20 mg tablet 20 mg PO DAILY #90 tab 09/10/20 06/18/21 Rx atorvastatin 40 mg tablet 40 mg PO HS #90 tab 03/09/21 06/18/21 Rx acetaminophen 325 mg tablet 325 mg PO Q6H PRN 06/18/21 06/18/21 History (Tylenol) albuterol 90 mcg/actuation aerosol 108 mcg INHALATION Q4H PRN 06/18/21 06/18/21 History inhaler amlodipine 2.5 mg tablet 2.5 mg PO DAILY 06/18/21 06/18/21 History digoxin 125 mcg (0.125 mg) tablet 125 mcg PO DAILY 06/18/21 06/18/21 History empagliflozin 25 mg tablet 25 mg PO DAILY 06/18/21 06/18/21 History fluticasone propionate 50 2 spray INTRANASAL DAILY 06/18/21 06/18/21 History mcg/actuation nasal spray,suspension loratadine 10 mg capsule 10 mg PO DAILY PRN 06/18/21 06/18/21 History metformin 850 mg tablet 850 mg PO DAILY 06/18/21 06/18/21 History metoprolol tartrate 50 mg tablet 100 mg PO BID 06/18/21 06/18/21 History (Lopressor) phenazopyridine 200 mg tablet 200 mg PO TID PRN 06/18/21 06/18/21 History (Pyridium) trazodone 50 mg tablet 50 mg PO HS 06/18/21 06/18/21 History warfarin 5 mg tablet See Rx Instructions .ROUTE .COMPLEX 06/18/21 06/18/21 History Patient History Medical History (Updated 06/19/21 @ 08:22 by Mulugeta Vasquez MD) Allergic rhinitis Anxiety Arthritis History of nephrolithiasis Ureteral stricture Surgical History History of section History of oophorectomy, unilateral S/P tonsillectomy Family History Brother Heart disease Diabetes Prostate cancer Father Heart disease Diabetes Prostate cancer Mother Hypertension Social History Smoking Status: Former smoker Hx Alcohol Use: Yes Alcohol type: wine Hx Substance Use: No Preferred Language: Welsh Communication Ability: Effective Datastage Architect Required: No Beliefs That Will Affect Care: None marital status: Current Living Situation: Family How many Children do You have: 1 Other Information That Helps Us Care for You: No Feels Safe at Home: Yes Safety Concerns: Feels Safe At This Time Assistive Devices: None Review of Systems Review of Systems: All systems reviewed & are unremarkable except as noted in HPI & below Physical Exam Physical Exam: Constitutional: Alert, cooperative and in no distress. HEENT: Unremarkable Neck: No jugular venous distention, carotid pulses are irregular but otherwise normal and equal bilaterally without bruits. Pulmonary: Slight basilar crackles on auscultation bilaterally. Cardiac: Irregular rhythm with normal mechanical prosthetic valve sounds and a grade 2/6 crescendo decrescendo murmur at the base with a grade 2 or 6 holosystolic murmur at the apex, no gallop or rub. Abdomen: Soft, nontender with normal bowel sounds. Extremities: Trace bilateral edema. Distal pulses intact. Neurologic: No focal findings. Gait was not tested. Skin: No rash, ecchymoses or petechiae. Results & Data ([facility]) Vital Signs (Past 12 Hours) Vital Signs Temp Pulse Pulse Pulse Resp BP BP 06/18/21 07:16 36.5 C 86 16 133/88 06/18/21 03:55 94 H 06/18/21 03:45 36.4 C L 116 H 18 153/92 H 06/18/21 03:28 36.9 C 108 H 24 136/89 06/18/21 03:20 95 H 18 136/89 06/18/21 02:21 37.0 C 114 H 24 137/110 H 06/18/21 00:45 20 06/18/21 00:44 97 H 142/93 H 06/17/21 23:05 94 H 140/90 Pulse Ox 06/18/21 07:16 91 06/18/21 03:55 06/18/21 03:45 91 06/18/21 03:28 92 06/18/21 03:20 92 06/18/21 02:21 92 06/18/21 00:45 06/18/21 00:44 06/17/21 23:05 Laboratory Results Coagulation 06/18/21 06/18/21 Range/Units 08:19 15:59 APTT 42.4 H 50.1 H* (21.0-31.0) Seconds Intake and Output 06/18/21 06/19/21 06/19/21 22:59 06:59 14:59 Intake Total 304.583 / 606.983 120 / 606.983 224.583 / 224.583 Output Total 600 / 2500 500 / 2500 700 / 700 Balance -295.417 / -1893.017 -380 / -1893.017 -475.417 / -475.417 Intake: IV 304.583 / 486.983 224.583 / 224.583 Heparin Sodium/Dextrose 25,000 304.583 / 486.983 224.583 / 224.583 units In 500 ml @ 1,250 UNITS/ HR 25 mls/hr IV .Q20H JIM Rx#: [id number] Oral 120 / 120 Output: Urine 600 / 2500 500 / 2500 700 / 700 Other: Weight 83 kg Weight Measurement Method Standing Scale Diagnostic Findings Telemetry: Atrial fibrillation with a rate averaging around 90 bpm. PG Care Time/CCT Total # of Minutes Spent Total Time Spent with Patient: Total time spent is greater than 50% in coordination of care (as documented) at patient's floor/unit and/or counseling patient: Coding Level of Care Code 40115 Initial Inpt Care Lvl 3 Diagnoses Acute exacerbation of CHF (congestive heart failure) I50.33 Heart failure type: diastolic Permanent atrial fibrillation I48.21 Anticoagulant long-term use Z79.01 Cardiomyopathy, nonischemic I42.8 History of mechanical aortic valve replacement Z95.2 Elevated troponin R77.8 (1) Acute exacerbation of CHF (congestive heart failure) Heart failure type: diastolic Qualified Code(s): I50.33 - Acute on chronic diastolic (congestive) heart failure
[2021-06-18] MEDS ORDERED: DIGOXIN 0.125 MG TAB PO SCH (16:00)
[2021-06-18 16:42] LABS: Partial Thromboplastin Ratio 1.8
[2021-06-18 16:45] LABS: Partial Thromboplastin Time 50.1 Seconds (21.0-31.0)
--- NOTE | 2021-06-18 17:45 | XCELERA ---
[id number]
[2021-06-18] MEDS: ATORVASTATIN 40 MG TAB PO SCH (20:04)
--- NOTE | 2021-06-19 07:33 | Electrocardiogram Report ---
Test Reason : Blood Pressure : / mmHG Vent. Rate : 123 BPM Atrial Rate : 075 BPM P-R Int : 000 ms QRS Dur : 120 ms QT Int : 358 ms P-R-T Axes : 000 -09 -48 degrees QTc Int : 512 ms Poor data quality, interpretation may be adversely affected Atrial fibrillation with rapid ventricular response Right bundle branch block Abnormal ECG When compared with ECG of 24-JUL-2017 07:58, Atrial fibrillation has replaced Sinus rhythm Vent. rate has increased BY 71 BPM T wave inversion no longer evident in Inferior leads T wave inversion no longer evident in Lateral leads Confirmed by Mulugeta Vasquez ([id number]) on 06/19/2021 7:33:02 AM Referred By: REFERRED SELF Confirmed By:Mulugeta Vasquez
[2021-06-19] MEDS: INSULIN ASPART PER UNIT SC SCH ×4 (07:51→20:42)
[2021-06-19] MEDS: amLODIPine BESYLATE 5 MG TAB PO SCH (08:08)
[2021-06-19] MEDS: POTASSIUM CHLORIDE CRTAB 20 MEQ TABCR PO SCH ×2 (08:08→17:14)
[2021-06-19] MEDS: ESCITALOPRAM OXALATE 20 MG TAB PO SCH (08:08)
[2021-06-19] MEDS: METOPROLOL TARTRATE 100 MG TAB PO SCH (08:08)
[2021-06-19 08:14] LABS: INR 1.5 (0.9-1.1); Partial Thromboplastin Ratio 1.9; Prothrombin Time 15.3 Seconds (9.0-12.0)
[2021-06-19 08:34] LABS: Partial Thromboplastin Time 51.8 Seconds (21.0-31.0)
--- NOTE | 2021-06-19 09:29 | Cardiology Progress Note ---
Date of Service June 19, 2021 Assessment & Plan (1) Acute exacerbation of CHF (congestive heart failure): (2) Permanent atrial fibrillation: (3) Anticoagulant long-term use: (4) Cardiomyopathy, nonischemic: (5) History of mechanical aortic valve replacement: (6) Elevated troponin: Plan: 1. Congestive heart failure: She presents with an exacerbation of congestive heart failure which is probably primarily due to diuretic and dietary noncompliance. She will need to be diuresed although I do not believe she has a lot of fluid, her weight has not changed much. Now she does have slight worsening of her left ventricular function based on echocardiography which might contribute but is probably not the primary reason. 2. Atrial fibrillation: She has been in atrial fibrillation for the last several years and this is felt to be permanent. Her heart rate is a little bit fast on presentation and may be rapid overall which could contribute to her cardiomyopathy. I cannot tell for sure what dose of medication she is on but it sounds as though she takes a lot of beta-blockade and too little digoxin. She should be on metoprolol succinate and I do not know there is much value in going over 200 mg a day which may be a reduction in beta-blockade, and we should increase her digoxin. We may have to add other agents, I think it is important to get her heart rate controlled with her cardiomyopathy. Other options include AV block and pacemaker but I would try medications first. She is also on amlodipine and we should probably switch that to diltiazem if we still do not have good heart rate control. I am going to stop her amlodipine at this time since I am going to start Entresto. She should remain on anticoagulation. 3. Anticoagulation: She is anticoagulated with warfarin which is appropriate for her mechanical valve. This will also cover her for atrial fibrillation stroke prevention. 4. Cardiomyopathy: Her left ventricular ejection fraction has declined somewhat over the last several years. She is not on standard medications for left ventricular dysfunction (she is on good doses of metoprolol tartrate but this should be switched to metoprolol succinate as noted above) and she is not on an RANDAL inhibitor. Her creatinine is normal and I would start Entresto this morning. I do not think coronary evaluation is indicated at this time. 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 Hopefully with reinstitution of heart failure medications we can correct her cardiomyopathy. 5. Aortic valve: Her mechanical aortic valve prosthesis appears to be functioning well. 6. Elevated troponin: Her troponin is minimally elevated and stable, I do not believe this represents an acute ischemic event. I do not suspect her left ventricular dysfunction is due to coronary disease although it is conceivable. At this point however I would not consider invasive evaluation. A stress test could be considered but I believe this to be low yield. Admission and Anticipated Discharge Date Admission Date: June 18, 2021 Subjective She is feeling quite well today, she is not aware of palpitations and she is not short of breath. I discussed her medications with her, it is not clear at all to me which she is taking at home. She tells me she is taking metoprolol 100 mg tablets 4 in the morning and 3 in the afternoon, her chart says 100 mg twice a day and her H&P says 50 mg tablets and I do not see the dosage schedule. Also takes digoxin 0.125 mg every other day and has a very low level, she was taking her diuretic every other day as well. Physical Exam Physical Exam: Constitutional: Alert, cooperative and in no distress. HEENT: Unremarkable Neck: No jugular venous distention, carotid pulses are irregular but otherwise normal and equal bilaterally without bruits. Pulmonary: Slight basilar crackles on auscultation bilaterally. Cardiac: Irregular rhythm with normal mechanical prosthetic valve sounds and a grade 2/6 crescendo decrescendo murmur at the base with a grade 2 or 6 holosystolic murmur at the apex, no gallop or rub. Abdomen: Soft, nontender with normal bowel sounds. Extremities: Trace bilateral edema. Distal pulses intact. Neurologic: No focal findings. Gait was not tested. Skin: No rash, ecchymoses or petechiae. Results & Data ([facility]) Vital Signs (Past 12 Hours) Vital Signs Temp Pulse Pulse Resp BP Pulse Ox 06/19/21 07:19 36.7 C 94 H 16 135/100 90 06/19/21 02:41 36.8 C 86 18 119/77 91 06/19/21 00:43 37.0 C 105 H 18 137/90 91 06/18/21 22:25 102 H Laboratory Results Coagulation 06/18/21 06/19/21 Range/Units 15:59 06:56 PT 15.3 H (9.0-12.0) Seconds APTT 50.1 H* 51.8 H* (21.0-31.0) Seconds Intake and Output 06/18/21 06/19/21 06/19/21 22:59 06:59 14:59 Intake Total 304.583 / 606.983 120 / 606.983 224.583 / 224.583 Output Total 600 / 2500 500 / 2500 700 / 700 Balance -295.417 / -1893.017 -380 / -1893.017 -475.417 / -475.417 Intake: IV 304.583 / 486.983 224.583 / 224.583 Heparin Sodium/Dextrose 25,000 304.583 / 486.983 224.583 / 224.583 units In 500 ml @ 1,250 UNITS/ HR 25 mls/hr IV .Q20H JIM Rx#: [id number] Oral 120 / 120 Output: Urine 600 / 2500 500 / 2500 700 / 700 Other: Weight 83 kg Weight Measurement Method Standing Scale Diagnostic Findings Telemetry: Atrial fibrillation, rate remains somewhat elevated. PG Care Time/CCT Total # of Minutes Spent Total Time Spent with Patient: Total time spent is greater than 50% in coordination of care (as documented) at patient's floor/unit and/or counseling patient: Coding Diagnoses Acute exacerbation of CHF (congestive heart failure) I50.33 Heart failure type: diastolic Permanent atrial fibrillation I48.21 Anticoagulant long-term use Z79.01 Cardiomyopathy, nonischemic I42.8 History of mechanical aortic valve replacement Z95.2 Elevated troponin R77.8 (1) Acute exacerbation of CHF (congestive heart failure) Heart failure type: diastolic Qualified Code(s): I50.33 - Acute on chronic diastolic (congestive) heart failure
[2021-06-19] MEDS: INSULIN GLARGINE SOLOSTAR 100 UNITS/ML 3 ML PEN SC SCH (09:33)
[2021-06-19] MEDS: FUROSEMIDE 40 MG/4 ML VIAL IV SCH (09:48)
[2021-06-19] MEDS: VALSARTAN/SACUBITRIL 26/24MG TAB PO SCH ×2 (10:07→19:20)
--- NOTE | 2021-06-19 12:30 | Hospitalist Progress Note ---
Date of Service June 19, 2021 Assessment & Plan (1) Acute systolic heart failure: (2) Elevated troponin: (3) Atrial fibrillation with RVR: (4) Uncontrolled diabetes mellitus: (5) Anticoagulant long-term use: (6) History of mechanical aortic valve replacement: (7) HTN (hypertension): Plan: acute systolic heart failure exacerbation possibly related to the way she was taking her medications history of mechanical AVR/atrial fibrillation status post cardioversion on Coumadin, INR slightly subtherapeutic hypertension, stable Troponin elevation secondary to rapid A. fib hyperlipidemia, on statin Rx DM2 currently diet controlled, patient noncompliant with home metformin and Jardiance Rx cont PCU monitoring with upcoming medication changes to reflect GDMT with new systolic dysfunction, also changes are to help wtih tachycardia. She continues on Lasix 40mg IV daily. Cont to trend BMP daily. Strict I/Os, daily weights, CHF education CArdiology following Toprol succinate to start in am at 200mg PO daily. Continues on digoxin 125mcg PO daily Started on Entresto this am. Supplement electrolytes as needed. A1C 7.8 reflects poor control overall. Met with certified adaptive physical educator and she has some home goals to work on. DVT prophylaxis. IV heparin Coumadin bridge, INR goal between 2 and 3 (hx mechanical AVR) Full code Dispo-per cardiology recommendations. Cont PCU monitoring for now. Natalee Saldivar DO [facility] Hospitalist Admission and Anticipated Discharge Date Admission Date: June 18, 2021 Subjective 71 yo F with afib on coumadin presenting with increased shortness of breath. She has a h/o mechanical valve replacement. EF slightly depressed from prior and she is being diuresed for acute systolic heart failure exacerbation. She reports symptoms have improved She is 2L net out overnight Medications are being adjusted to reflect GDMT She denies chest pain, SOB, she is walking around without much issue. Review of Systems Review of Systems: All systems were reviewed and negative except as indicated above. Physical Exam Physical Exam: CONSTITUTIONAL: WNWD, vitals as above, generally well- appearing EYES: normal conjunctivae, no scleral icterus, ENT: external ear and nose normal, MMM NECK: trachea midline RESPIRATORY: clear to auscultation bilaterally, no crackles, rales or wheezes, normal respiratory effort CARDIOVASCULAR: regular rate and irreg rhythm, S1 and 2 heard without murmurs, gallops or rubs, no JVD, no peripheral edema CHEST: inspection of chest was normal GASTROINTESTINAL: soft, nontender, ND, no guarding MUSCULOSKELETAL: strength 5/5 throughout, head is normocephalic and atraumatic SKIN: warm and dry NEUROLOGIC: CN 2-12 grossly intact, no sensory deficit, normal cognition, normal speech, no tremor, no gross focal deficits. PSYCHIATRIC: alert cooperative and oriented to person, place and time. Results & Data Results & Data ([facility]) Vital Signs (Past 12 Hours) Vital Signs Temp Pulse Resp BP Pulse Ox 06/19/21 11:35 37.6 C H 106 H 16 127/102 H 90 06/19/21 07:19 36.7 C 94 H 16 135/100 90 06/19/21 02:41 36.8 C 86 18 119/77 91 06/19/21 00:43 37.0 C 105 H 18 137/90 91 Medications Administered Current Inpatient Medications Acetaminophen (Acetaminophen 325 Mg Tab) 650 mg PO Q4H PRN PRN Reason: Pain or Fever Stop: 07/18/21 03:48 Atorvastatin Calcium (Atorvastatin 40 Mg Tab) 40 mg PO HS JIM Stop: 07/18/21 20:59 Last Admin: 06/18/21 20:04 Dose: 40 mg Documented by: Dextrose (Dextrose 50% 50 Ml Syringe) 25 - 50 ml IV UD PRN; Protocol PRN Reason: Hypoglycemia Protocol Stop: 07/18/21 03:48 Digoxin (Digoxin 0.125 Mg Tab) 0.125 mg PO DAILY@1600 JIM Stop: 07/19/21 15:59 Escitalopram Oxalate (Escitalopram Oxalate 20 Mg Tab) 20 mg PO DAILY JIM Stop: 07/18/21 08:59 Last Admin: 06/19/21 08:08 Dose: 20 mg Documented by: Furosemide (Furosemide 40 Mg/4 Ml Vial) 40 mg IV DAILY JIM Stop: 07/19/21 09:14 Last Admin: 06/19/21 09:48 Dose: 40 mg Documented by: Glucagon (Glucagon For Inj 1 Mg Vial) 1 mg SQ UD PRN; Protocol PRN Reason: Hypoglycemia Protocol Stop: 07/18/21 03:48 Glucose (Glucose 10 Tabs/Tube) 4 - 8 tabs PO UD PRN; Protocol PRN Reason: Hypoglycemia Protocol Stop: 07/18/21 03:48 Glucose (Glucose 40% Gel 15 Gm Tube) 15 - 30 gm PO UD PRN; Protocol PRN Reason: Hypoglycemia Protocol Stop: 07/18/21 03:48 Heparin Sodium/Dextrose (Heparin Sodium/Dextrose) 25,000 units in 500 mls @ 25 mls/hr IV .Q20H JIM; Protocol Stop: 07/18/21 01:29 Last Titration: 06/19/21 09:34 Dose: 1,250 units/hr, 25 mls/hr Documented by: Promethazine HCl 12.5 mg/ (Sodium Chloride) 50.5 mls @ 202 mls/hr IV Q6H PRN PRN Reason: Nausea And Vomiting Stop: 07/18/21 03:48 Insulin Aspart (Insulin Aspart Per Unit) 0 units SC ACHS [facility] Stop: 07/18/21 03:48 Last Admin: 06/19/21 11:49 Dose: 5 units Documented by: Insulin Glargine (Insulin Glargine Solostar 100 Units/Ml 3 Ml Pen) 5 units SC DAILY [facility] Stop: 07/18/21 08:59 Last Admin: 06/19/21 09:33 Dose: 5 units Documented by: Metoprolol Succinate (Metoprolol Succ 50mg Ext Rel Tab) 200 mg PO QAM [facility] Stop: 07/20/21 08:59 Metoprolol Tartrate (Metoprolol Tartrate 100 Mg Tab) 100 mg PO ONE ONE Stop: 06/19/21 21:01 Miscellaneous (Carbohydrates For Hypoglycemia ) 15 - 30 gm PO UD PRN PRN Reason: Hypoglycemia Protocol Stop: 07/18/21 03:48 Nitroglycerin (Nitroglycerin Sl 0.4 Mg/Tab Tab) 0.4 mg SL UD PRN PRN Reason: Chest Pain Stop: 07/18/21 03:48 Potassium Chloride (Potassium Chloride Crtab 20 Meq Tabcr) 20 meq PO BID17 [facility] Stop: 07/18/21 08:59 Last Admin: 06/19/21 08:08 Dose: 20 meq Documented by: Sacubitril/Valsartan (Valsartan/Sacubitril 26/24mg Tab) 1 tab PO BID [facility] Stop: 07/19/21 09:44 Last Admin: 06/19/21 10:07 Dose: 1 tab Documented by: Tramadol HCl (Tramadol Hcl 50 Mg Tablet) 25 - 50 mg PO Q4H PRN PRN Reason: Pain Stop: 07/18/21 03:48 Warfarin Sodium (Warfarin Sod 5 Mg Tab) 5 mg PO DAILY@1600 JIM Stop: 07/19/21 15:59
[2021-06-19] MEDS: HEPARIN SODIUM/DEXTROSE 25,000 UNITS/500 ML BAG IV SCH (16:48)
[2021-06-19] MEDS: DIGOXIN 0.125 MG TAB PO SCH (17:13)
[2021-06-19] MEDS: WARFARIN SOD 5 MG TAB PO SCH (17:14)
[2021-06-19] MEDS: ATORVASTATIN 40 MG TAB PO SCH (19:18)
[2021-06-19] MEDS ORDERED: METOPROLOL TARTRATE 100 MG TAB PO ONE (21:00)
[2021-06-20 04:55] LABS: BUN Creatinine Ratio 27.7 (10-20); Calcium 9.2 mg/dl (8.5-10.1); Creatinine Clr Calc Pharmacy 78.7 ml/min; Est GFR (African American) 102.1 ml/min; Est GFR (Non-African American) 88.1 ml/min; Magnesium 1.9 mg/dl (1.7-2.4); Potassium 3.9 mmol/L (3.5-5.1)
[2021-06-20 05:01] LABS: INR 1.3 (0.9-1.1); Partial Thromboplastin Ratio 1.9
[2021-06-20 05:05] LABS: Partial Thromboplastin Time 51.5 Seconds (21.0-31.0)
[2021-06-20] MEDS: INSULIN ASPART PER UNIT SC SCH ×4 (07:44→20:33)
[2021-06-20] MEDS: INSULIN GLARGINE SOLOSTAR 100 UNITS/ML 3 ML PEN SC SCH (07:48)
[2021-06-20] MEDS: ESCITALOPRAM OXALATE 20 MG TAB PO SCH (08:01)
[2021-06-20] MEDS: FUROSEMIDE 40 MG/4 ML VIAL IV SCH (08:01)
[2021-06-20] MEDS: POTASSIUM CHLORIDE CRTAB 20 MEQ TABCR PO SCH (08:01)
[2021-06-20] MEDS: METOPROLOL SUCC 50MG EXT REL TAB PO SCH (08:03)
[2021-06-20] MEDS: VALSARTAN/SACUBITRIL 26/24MG TAB PO SCH ×2 (08:05→20:33)
[2021-06-20 11:30] LABS: Partial Thromboplastin Ratio 1.9
[2021-06-20 11:49] LABS: Partial Thromboplastin Time 51.2 Seconds (21.0-31.0)
--- NOTE | 2021-06-20 13:16 | Hospitalist Progress Note ---
Date of Service June 20, 2021 Assessment & Plan (1) Acute systolic heart failure: (2) Elevated troponin: (3) Atrial fibrillation with RVR: (4) Uncontrolled diabetes mellitus: (5) Anticoagulant long-term use: (6) History of mechanical aortic valve replacement: (7) HTN (hypertension): Plan: acute systolic heart failure exacerbation possibly related to the way she was taking her medications history of mechanical AVR/atrial fibrillation status post cardioversion on Coumadin, INR slightly subtherapeutic hypertension, stable Troponin elevation secondary to rapid A. fib hyperlipidemia, on statin Rx DM2 currently uncontrolled with HbA1C 7.8. tachycardia improved overnight. now on sacubitril/valsartan 26/24mg 1 tab PO BID, Toprol XL 200mg PO daily, and 125mcg PO digoxin daily. remains in atrial fibrillation on telemetry She continues on Lasix 40mg IV daily and had net 3L out overnight. Strict I/Os, daily weights, CHF education Cardiology following-suspect she can be discharged today, however, awaiting cardiology recommendations for this. Supplement electrolytes as needed. Cont to trend BMP daily. A1C 7.8 reflects poor control overall. Met with extension educator and she has some home goals to work on. DVT prophylaxis. IV heparin Coumadin bridge, INR goal between 2 and 3, currently 1.3 (hx mechanical AVR) Full code Dispo-per cardiology recommendations. Cont PCU monitoring for now. [facility] Hospitalist Admission and Anticipated Discharge Date Admission Date: June 18, 2021 Subjective 71 yo F with afib on coumadin presenting with increased shortness of breath. She has a h/o mechanical valve replacement. EF slightly depressed from prior and she is being diuresed for acute systolic heart failure exacerbation. She denies symptoms and is feeling well overall Specifically denies any chest pain or SOB Medications are being adjusted to reflect GDMT and she is tolerating. Tachycardia has improved Review of Systems Review of Systems: All systems were reviewed and negative except as indicated above. Physical Exam Physical Exam: CONSTITUTIONAL: WNWD, vitals as above, generally well- appearing EYES: normal conjunctivae, no scleral icterus, ENT: external ear and nose normal, MMM NECK: trachea midline RESPIRATORY: clear to auscultation bilaterally, no crackles, rales or wheezes, normal respiratory effort CARDIOVASCULAR: regular rate and irreg rhythm, S1 and 2 heard without murmurs, gallops or rubs, no JVD, no peripheral edema CHEST: inspection of chest was normal GASTROINTESTINAL: soft, nontender, ND, no guarding MUSCULOSKELETAL: strength 5/5 throughout, head is normocephalic and atraumatic SKIN: warm and dry NEUROLOGIC: CN 2-12 grossly intact, no sensory deficit, normal cognition, normal speech, no tremor, no gross focal deficits. PSYCHIATRIC: alert cooperative and oriented to person, place and time. Results & Data Results & Data ([facility]) Vital Signs (Past 12 Hours) Vital Signs Temp Pulse Pulse Resp BP Pulse Ox 06/20/21 12:37 37.0 C 96 H 16 122/91 92 06/20/21 08:07 37.2 C 110 H 16 119/84 91 06/20/21 07:07 97 H 06/20/21 04:16 36.4 C L 102 H 18 138/82 93 Laboratory Results BMP 06/20/21 03:58 Sodium 138 Potassium 3.9 Chloride 104 Carbon Dioxide 28 BUN 18 Creatinine 0.65 Glucose 146 H Calcium 9.2 Medications Administered Current Inpatient Medications Acetaminophen (Acetaminophen 325 Mg Tab) 650 mg PO Q4H PRN PRN Reason: Pain or Fever Stop: 07/18/21 03:48 Atorvastatin Calcium (Atorvastatin 40 Mg Tab) 40 mg PO HS JIM Stop: 07/18/21 20:59 Last Admin: 06/19/21 19:18 Dose: 40 mg Documented by: Dextrose (Dextrose 50% 50 Ml Syringe) 25 - 50 ml IV UD PRN; Protocol PRN Reason: Hypoglycemia Protocol Stop: 07/18/21 03:48 Digoxin (Digoxin 0.125 Mg Tab) 0.125 mg PO DAILY@1600 JIM Stop: 07/19/21 15:59 Last Admin: 06/19/21 17:13 Dose: 0.125 mg Documented by: Escitalopram Oxalate (Escitalopram Oxalate 20 Mg Tab) 20 mg PO DAILY JIM Stop: 07/18/21 08:59 Last Admin: 06/20/21 08:01 Dose: 20 mg Documented by: Furosemide (Furosemide 40 Mg/4 Ml Vial) 40 mg IV DAILY JIM Stop: 07/19/21 09:14 Last Admin: 06/20/21 08:01 Dose: 40 mg Documented by: Glucagon (Glucagon For Inj 1 Mg Vial) 1 mg SQ UD PRN; Protocol PRN Reason: Hypoglycemia Protocol Stop: 07/18/21 03:48 Glucose (Glucose 10 Tabs/Tube) 4 - 8 tabs PO UD PRN; Protocol PRN Reason: Hypoglycemia Protocol Stop: 07/18/21 03:48 Glucose (Glucose 40% Gel 15 Gm Tube) 15 - 30 gm PO UD PRN; Protocol PRN Reason: Hypoglycemia Protocol Stop: 07/18/21 03:48 Heparin Sodium/Dextrose (Heparin Sodium/Dextrose) 25,000 units in 500 mls @ 25 mls/hr IV .Q20H JIM; Protocol Stop: 07/18/21 01:29 Last Titration: 06/20/21 12:10 Dose: 1,250 units/hr, 25 mls/hr Documented by: Promethazine HCl 12.5 mg/ (Sodium Chloride) 50.5 mls @ 202 mls/hr IV Q6H PRN PRN Reason: Nausea And Vomiting Stop: 07/18/21 03:48 Insulin Aspart (Insulin Aspart Per Unit) 0 units SC ACHS [facility] Stop: 07/18/21 03:48 Last Admin: 06/20/21 12:10 Dose: 3 units Documented by: Insulin Glargine (Insulin Glargine Solostar 100 Units/Ml 3 Ml Pen) 5 units SC DAILY [facility] Stop: 07/18/21 08:59 Last Admin: 06/20/21 07:48 Dose: 5 units Documented by: Metoprolol Succinate (Metoprolol Succ 50mg Ext Rel Tab) 200 mg PO QAM [facility] Stop: 07/20/21 08:59 Last Admin: 06/20/21 08:03 Dose: 200 mg Documented by: Miscellaneous (Carbohydrates For Hypoglycemia ) 15 - 30 gm PO UD PRN PRN Reason: Hypoglycemia Protocol Stop: 07/18/21 03:48 Nitroglycerin (Nitroglycerin Sl 0.4 Mg/Tab Tab) 0.4 mg SL UD PRN PRN Reason: Chest Pain Stop: 07/18/21 03:48 Potassium Chloride (Potassium Chloride Crtab 20 Meq Tabcr) 20 meq PO BID17 [facility] Stop: 07/18/21 08:59 Last Admin: 06/20/21 08:01 Dose: 20 meq Documented by: Sacubitril/Valsartan (Valsartan/Sacubitril 26/24mg Tab) 1 tab PO BID JIM Stop: 07/19/21 09:44 Last Admin: 06/20/21 08:05 Dose: 1 tab Documented by: Tramadol HCl (Tramadol Hcl 50 Mg Tablet) 25 - 50 mg PO Q4H PRN PRN Reason: Pain Stop: 07/18/21 03:48 Warfarin Sodium (Warfarin Sod 5 Mg Tab) 5 mg PO DAILY@1600 [facility] Stop: 07/19/21 15:59 Last Admin: 06/19/21 17:14 Dose: 5 mg Documented by:
[2021-06-20] MEDS: HEPARIN SODIUM/DEXTROSE 25,000 UNITS/500 ML BAG IV SCH (13:24)
--- NOTE | 2021-06-20 15:18 | Cardiology Progress Note ---
Date of Service June 20, 2021 Assessment & Plan (1) Acute on chronic HFrEF (heart failure with reduced ejection fraction): (2) Permanent atrial fibrillation: (3) Cardiomyopathy, nonischemic: (4) History of mechanical aortic valve replacement: (5) HTN (hypertension): Plan: ASSESSMENT/PLAN: 1. Acute on chronic heart failure with reduced EF: She appears euvolemic. She is diuresing well and shows no signs of azotemia. Agree with metoprolol succinate, Entresto, ST LT 2 inhibitor, and loop diuretic. Would also recommend spironolactone 25 mg once daily. Low-sodium diet and daily weights. Can likely resume Bumex 1 mg once daily on discharge. Close follow-up in the Heart failure program recommended. If LV systolic function does not improve with adequate rate control and optimal medical therapy consider ICD for primary prevention. 2. Permanent atrial fibrillation: Heart rate still tachycardic at times while laying in bed. Recommend increasing metoprolol succinate to 300 mg daily as she was on 350 mg previously per outpatient records and patient. Can continue digoxin but monitor digoxin level. There has been discussion in the past according to records about AV kyle ablation. Continue medical therapy for now for rate control strategy but AV kyle ablation can be revisited if necessary in the future. Continue anticoagulation for stroke risk reduction. 3. Cardiomyopathy: History of nonischemic cardiomyopathy. Tachycardia may be playing a role for more recent reduction in LV systolic function. Adjusting heart rate regimen as above. ICD for primary prevention if LV systolic function does not improve with improved heart rate and after optimization of medical therapy. 4. Hypertension: Blood pressure reasonably controlled. Continue plan as above. 5. Mechanical aortic valve: Appropriately functioning mechanical aortic valve per most recent echo on 06/18/2021. SBE prophylaxis for dental procedures. Anticoagulation therapy. 6. Disposition: If heart rate improves and is acceptable with ambulation in the hallway, can be discharged home as she appears improved from a volume standpoint. She should follow-up with her primary energy systems laboratory director, Dr. Villela, and also recommend consultation in the Heart failure program. Plan of care communicated with Dr. Saldivar of the primary hospitalist service. Admission and Anticipated Discharge Date Admission Date: June 18, 2021 Subjective She was seen earlier today. She denies shortness of breath. She denies chest pain, palpitations, edema, or bleeding. She has been able to ambulate to the restroom with in her hospital room and has done so without dyspnea. At home it sounds as though she was taking metoprolol 350 mg daily and digoxin every other day. She is tolerating current medical therapy. Review of systems: As above. She was alone in her hospital room. Physical Exam Physical Exam: Gen.: No acute distress. Alert and oriented. HEENT: Anicteric sclera. Neck: No JVD. Cardiac: PMI was nondisplaced. No ventricular heave. Irregularly irregular. Norm al S1. [place] S2. 1/6 systolic murmur. Pulmonary: Clear to auscultation bilaterally without wheezes, rales, or rhonchi. Abdomen: Soft, nontender, nondistended, with normoactive bowel sounds. No bruits noted. Extremities: 2+ radial pulses bilaterally. 2+ posterior tibialis pulses bilaterally. Trace bilateral pedal edema. No cyanosis. Psychiatric: Affect appears appropriate. Results & Data ([facility]) Vital Signs (Past 12 Hours) Vital Signs Temp Pulse Pulse Resp BP Pulse Ox 06/20/21 14:50 88 06/20/21 12:37 37.0 C 96 H 16 122/91 92 06/20/21 08:07 37.2 C 110 H 16 119/84 91 06/20/21 07:07 97 H 06/20/21 04:16 36.4 C L 102 H 18 138/82 93 Intake & Output 06/18/21 06/19/21 06/20/21 06/21/21 06:59 06:59 06:59 06:59 Intake Total 200 / 200 606.983 / 606.983 821.249 / 821.249 147.084 / 147.084 Output Total 2500 / 2500 4450 / 4450 1200 / 1200 Balance 200 / 200 -1893.017 / -1893.017 -3628.751 / -3628.751 -1052.916 / - 1052.916 Weight 178 lb 9.191 oz 182 lb 15.739 oz 178 lb 9.191 oz Laboratory Results Laboratory Results - last 24 hr 06/19/21 06/19/21 06/20/21 16:22 20:32 03:58 PT 14.0 H INR 1.3 H APTT 51.5 H* PTT Ratio 1.9 Sodium Potassium Chloride Carbon Dioxide Anion Gap BUN Creatinine Est Cr Clr Drug Dosing Est GFR ( Amer) Est GFR (Non-Af Amer) BUN/Creatinine Ratio Glucose POC Glucose 121 H 152 H Calcium Magnesium 06/20/21 06/20/21 06/20/21 03:58 07:15 10:49 PT INR APTT 51.2 H* PTT Ratio 1.9 Sodium 138 Potassium 3.9 Chloride 104 Carbon Dioxide 28 Anion Gap 6 BUN 18 Creatinine 0.65 Est Cr Clr Drug Dosing 78.7 Est GFR ( Amer) 102.1 Est GFR (Non-Af Amer) 88.1 BUN/Creatinine Ratio 27.7 H Glucose 146 H POC Glucose 159 H Calcium 9.2 Magnesium 1.9 06/20/21 10:59 PT INR APTT PTT Ratio Sodium Potassium Chloride Carbon Dioxide Anion Gap BUN Creatinine Est Cr Clr Drug Dosing Est GFR ( Amer) Est GFR (Non-Af Amer) BUN/Creatinine Ratio Glucose POC Glucose 144 H Calcium Magnesium Diagnostic Findings Telemetry personally reviewed: Atrial fibrillation with heart rates 80s to 100s, but commonly 90s to 100s while in bed. Medications Administered Current Inpatient Medications Acetaminophen (Acetaminophen 325 Mg Tab) 650 mg PO Q4H PRN PRN Reason: Pain or Fever Stop: 07/18/21 03:48 Atorvastatin Calcium (Atorvastatin 40 Mg Tab) 40 mg PO HS [facility] Stop: 07/18/21 20:59 Last Admin: 06/19/21 19:18 Dose: 40 mg Documented by: Dextrose (Dextrose 50% 50 Ml Syringe) 25 - 50 ml IV UD PRN; Protocol PRN Reason: Hypoglycemia Protocol Stop: 07/18/21 03:48 Digoxin (Digoxin 0.125 Mg Tab) 0.125 mg PO DAILY@1600 [facility] Stop: 07/19/21 15:59 Last Admin: 06/19/21 17:13 Dose: 0.125 mg Documented by: Escitalopram Oxalate (Escitalopram Oxalate 20 Mg Tab) 20 mg PO DAILY [facility] Stop: 07/18/21 08:59 Last Admin: 06/20/21 08:01 Dose: 20 mg Documented by: Furosemide (Furosemide 40 Mg/4 Ml Vial) 40 mg IV DAILY [facility] Stop: 07/19/21 09:14 Last Admin: 06/20/21 08:01 Dose: 40 mg Documented by: Glucagon (Glucagon For Inj 1 Mg Vial) 1 mg SQ UD PRN; Protocol PRN Reason: Hypoglycemia Protocol Stop: 07/18/21 03:48 Glucose (Glucose 10 Tabs/Tube) 4 - 8 tabs PO UD PRN; Protocol PRN Reason: Hypoglycemia Protocol Stop: 07/18/21 03:48 Glucose (Glucose 40% Gel 15 Gm Tube) 15 - 30 gm PO UD PRN; Protocol PRN Reason: Hypoglycemia Protocol Stop: 07/18/21 03:48 Heparin Sodium/Dextrose (Heparin Sodium/Dextrose) 25,000 units in 500 mls @ 25 mls/hr IV .Q20H JIM; Protocol Stop: 07/18/21 01:29 Last Admin: 06/20/21 13:24 Dose: 1,250 units/hr, 25 mls/hr Documented by: Promethazine HCl 12.5 mg/ (Sodium Chloride) 50.5 mls @ 202 mls/hr IV Q6H PRN PRN Reason: Nausea And Vomiting Stop: 07/18/21 03:48 Insulin Aspart (Insulin Aspart Per Unit) 0 units SC ACHS [facility] Stop: 07/18/21 03:48 Last Admin: 06/20/21 12:10 Dose: 3 units Documented by: Insulin Glargine (Insulin Glargine Solostar 100 Units/Ml 3 Ml Pen) 5 units SC DAILY [facility] Stop: 07/18/21 08:59 Last Admin: 06/20/21 07:48 Dose: 5 units Documented by: Metoprolol Succinate (Metoprolol Succ 50mg Ext Rel Tab) 200 mg PO QAM [facility] Stop: 07/20/21 08:59 Last Admin: 06/20/21 08:03 Dose: 200 mg Documented by: Miscellaneous (Carbohydrates For Hypoglycemia ) 15 - 30 gm PO UD PRN PRN Reason: Hypoglycemia Protocol Stop: 07/18/21 03:48 Nitroglycerin (Nitroglycerin Sl 0.4 Mg/Tab Tab) 0.4 mg SL UD PRN PRN Reason: Chest Pain Stop: 07/18/21 03:48 Potassium Chloride (Potassium Chloride Crtab 20 Meq Tabcr) 20 meq PO BID17 [facility] Stop: 07/18/21 08:59 Last Admin: 06/20/21 08:01 Dose: 20 meq Documented by: Sacubitril/Valsartan (Valsartan/Sacubitril 26/24mg Tab) 1 tab PO BID [facility] Stop: 07/19/21 09:44 Last Admin: 06/20/21 08:05 Dose: 1 tab Documented by: Tramadol HCl (Tramadol Hcl 50 Mg Tablet) 25 - 50 mg PO Q4H PRN PRN Reason: Pain Stop: 07/18/21 03:48 Warfarin Sodium (Warfarin Sod 5 Mg Tab) 5 mg PO DAILY@1600 [facility] Stop: 07/19/21 15:59 Last Admin: 06/19/21 17:14 Dose: 5 mg Documented by: PG Care Time/CCT Total # of Minutes Spent Total Time Spent with Patient: Total time spent is greater than 50% in coordination of care (as documented) at patient's floor/unit and/or counseling patient: Coding Level of Care Code 43497 Subseq Hosp Care Lvl 3 Diagnoses Acute on chronic HFrEF (heart failure with reduced ejection fraction) I50.23 Permanent atrial fibrillation I48.21 Cardiomyopathy, nonischemic I42.8 History of mechanical aortic valve replacement Z95.2 HTN (hypertension) I10
[2021-06-20] MEDS ORDERED: METOPROLOL TARTRATE 100 MG TAB PO STA (16:06)
[2021-06-20] MEDS: DIGOXIN 0.125 MG TAB PO SCH (16:59)
[2021-06-20] MEDS: WARFARIN SOD 5 MG TAB PO SCH (17:00)
[2021-06-20] MEDS: SPIRONOLACTONE 12.5 MG TAB PO SCH (17:00)
[2021-06-20] MEDS: ATORVASTATIN 40 MG TAB PO SCH (20:33)
[2021-06-21 06:25] LABS: BUN Creatinine Ratio 23.6 (10-20); Calcium 9.3 mg/dl (8.5-10.1); Creatinine Clr Calc Pharmacy 69.7 ml/min; Est GFR (African American) 96.3 ml/min; Est GFR (Non-African American) 83.1 ml/min
[2021-06-21 06:40] LABS: INR 1.4 (0.9-1.1); Prothrombin Time 14.7 Seconds (9.0-12.0)
[2021-06-21 07:39] LABS: Partial Thromboplastin Time 56.1 Seconds (21.0-31.0)
[2021-06-21] MEDS: INSULIN ASPART PER UNIT SC SCH ×2 (08:00→12:07)
[2021-06-21] MEDS: METOPROLOL SUCC 50MG EXT REL TAB PO SCH (08:24)
[2021-06-21] MEDS: SPIRONOLACTONE 12.5 MG TAB PO SCH (08:24)
[2021-06-21] MEDS: ESCITALOPRAM OXALATE 20 MG TAB PO SCH (08:24)
[2021-06-21] MEDS: VALSARTAN/SACUBITRIL 26/24MG TAB PO SCH (08:25)
[2021-06-21] MEDS ORDERED: METOPROLOL SUCC 50MG EXT REL TAB PO STA (08:50)
[2021-06-21] MEDS ORDERED: BUMETANIDE 1 MG TAB PO SCH (09:00)
--- NOTE | 2021-06-21 10:02 | Discharge Summary ---
Date of Service June 21, 2021 Admission HPI Per Admitting Provider History obtained from the patient and records. Medical history significant for chronic diastolic heart failure secondary to nonischemic cardiomyopathy (EF 50-55% TTE 2019), history of mechanical AVR/paroxysmal atrial fibrillation status post cardioversion on Coumadin, hypertension, hyperlipidemia, urolithiasis, DM2 currently diet controlled, past tobacco abuse, history of difficult intubation as per records Last confinement 2017 for A. fib RVR status post cardioversion. 2 days history of shortness of breath worse on exertion without chest pain or cough symptoms. Weight fluctuating but within normal range as per patient. Patient compliant with home medications. Denies dietary discretion. No unusual stress. Palpitations from A. fib. Patient noted to be in rapid A. fib upon arrival at the ER. Heart rate 110s. IV Lopressor administered at the ER. IV Bumex given for CHF. MEDICAL HISTORY: SURGICAL HISTORY: She has had aortic valve replacement, urologic procedures, tonsillectomy and section. FAMILY HISTORY: Family history of kidney stones, heart disease. 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 Discharge Exam CONSTITUTIONAL: WNWD, vitals as above, generally well-appearing EYES: normal conjunctivae, no scleral icterus, ENT: external ear and nose normal, MMM NECK: trachea midline RESPIRATORY: clear to auscultation bilaterally, no crackles, rales or wheezes, normal respiratory effort CARDIOVASCULAR: regular rate and irreg rhythm, S1 and 2 heard without murmurs, gallops or rubs, no JVD, no peripheral edema CHEST: inspection of chest was normal GASTROINTESTINAL: soft, nontender, ND, no guarding MUSCULOSKELETAL: strength 5/5 throughout, head is normocephalic and atraumatic SKIN: warm and dry NEUROLOGIC: CN 2-12 grossly intact, no sensory deficit, normal cognition, normal speech, no tremor, no gross focal deficits. PSYCHIATRIC: alert cooperative and oriented to person, place and time. Discharge Data Allergies Allergy/AdvReac Type Severity Reaction Status Date / Time Iodinated Contrast Media Allergy Mild ` Verified 02/15/21 11:47 latex Allergy Unknown skin red Verified 02/15/21 11:47 and blistered ragweed pollen Allergy Verified 02/15/21 11:47 Consultations 06/18/21 00:30 ED Decision to Admit Stat 06/18/21 03:49 Consult Cardiology Routine Hospital Course (1) Acute systolic heart failure: (2) Elevated troponin: (3) Atrial fibrillation with RVR: (4) Uncontrolled diabetes mellitus: (5) Anticoagulant long-term use: (6) History of mechanical aortic valve replacement: (7) HTN (hypertension): acute systolic heart failure exacerbation possibly related to the way she was taking her medications history of mechanical AVR/atrial fibrillation status post cardioversion on Coumadin, INR slightly subtherapeutic hypertension, stable Troponin elevation secondary to rapid A. fib hyperlipidemia, on statin Rx DM2 currently uncontrolled with HbA1C 7.8. tachycardia improved overnight. now on sacubitril/valsartan 26/24mg 1 tab PO BID, Toprol XL 200mg PO daily, and 125mcg PO digoxin daily. remains in atrial fibrillation on telemetry She continues on Lasix 40mg IV daily and had net 3L out overnight. Strict I/Os, daily weights, CHF education Cardiology following-suspect she can be discharged today, however, awaiting cardiology recommendations for this. Supplement electrolytes as needed. Cont to trend BMP daily. A1C 7.8 reflects poor control overall. Met with perioperative educator and she has some home goals to work on. DVT prophylaxis. IV heparin Coumadin bridge, INR goal between 2 and 3, currently 1.3 (hx mechanical AVR) Full code Dispo-per cardiology recommendations. Cont PCU monitoring for now. DO Elizabeth De León Hospitalist Discharge Plan Discharge Items Patient Disposition: Home - Self-Care Reason For Visit: CHF, RAPID AF Discharge Diagnosis: Acute systolic heart failure exacerbation Atrial fibrillation with rapid ventricular response Condition on Discharge: Good Activity: Resume your previous activity Non-emergency contact: Primary Care Provider Call non-emergency contact if: you have any medication questions, your symptoms worsen and your pain is not controlled Follow-up/Referrals: Aruna Mack PA-C [Physician Retail Loss Prevention Officer] - 06/25/21 8:30 am (Congestive Heart Failure Program Appointment Information Early follow up is essential to managing your heart failure. An appointment has been scheduled for you with the [facility] Heart Failure Program within 7 days of discharge. Anticipate this visit to be 30-60 minutes long. Please expect a deck mechanic phone call from one of our nurses approximately 48 hours from discharge. They will also be placing an order for lab work to be completed 1-2 days prior to your heart failure follow up appointment. Please be sure to have this done so we can go over the results when you come in. Office Location The cardiology office building is located in front of the hospital at [address] Bring the following with you to your follow-up doctor appointments: Please bring your daily weight log any discharge paperwork all of your medication bottles with you to this visit. ) Jonah Lacey, [Primary Care Provider] - Diet: Carb Consistent or DM2 and Low Sodium (2gm) Addtl Attending Provider Instructions: Please take all medications as instructed on discharge list below. Please note multiple medication changes including: continue taking warfarin 5mg daily until seen by anticoagulation clinic for a recheck INR within two days of discharge from the hospital. new spironolactone stop potassium supplements change bumetanide to only 1mg daily new Entresto twice daily change metoprolol tartrate to metoprolol succinate (Toprol XL) with increased dose to 300mg daily. stop amlodipine It is recommended that you followup with your primary care provider within one week of discharge from the hospital to review these medication changes, ensure you are feeling well and obtain BMP (non-fasting lab) in 1-2 weeks. It is also recommended that you follow up in the [facility] Heart Failure clinic as instructed by Aruna Mack PA-C. It was a pleasure taking care of you! Please call if you have any questions or problems. You can reach a [facility] hospitalist on duty at [facility] 24 hours a day by calling [phone]. Take care of yourself. Natalee Saldivar DO [facility] Hospitalist Addtl Car Repairer Provider Instructions: Call 101 and go to the Emergency Room if: * You have tightness or pain in your chest that does not go away with rest or Nitroglycerin * You are very short of breath even with rest Call your doctor if any of the following symptoms or problems start or get worse: * Shortness of breath or difficulty breathing * Wake up at night short of breath * Chest pain * Cough * Swelling of your hands, fee, or legs * More fatigued or tired with your normal activity * Palpitations - sudden fast heart beats WEIGHT * Weigh yourself every morning after using the bathroom. * Use the same scale. * Wear the same amount of clothing. * Write your weight down on your chart. * Call your doctor if you gain more than 2-3 pounds in 1-2 days. MEDICATIONS * Use this discharge instruction sheet for instructions. * Take your medications at the time your doctor ordered. * Do not skip a dose of your medicines. * If you miss a dose of medicine, take as soon as possible, but DO NOT DOUBLE A DOSE. * Read your medicine information when you get home. * Know all of the side effects of your medicine. * Call your doctor's office if you have any side effects. * Be sure all of your doctors know what medicine and herbs you take (including cold, flu, and herbal medicine). * Pain Medicine: If you do not get relief from your pain, please call your doctor for help. Take the following with you to your follow-up doctor appointments: * Weight Chart * Medication List * List of questions Do not drink excessive alcohol, beer or wine. Pending Studies at Discharge: No Stand-Alone Forms: My [facility] Medications and DC Order Prescriptions: New metoprolol succinate [Toprol XL] 100 mg tablet extended release 24 hr 300 mg PO DAILY Qty: 90 RF: 0 Entresto 24-26 mg Tablet 1 tab PO BID Qty: 60 RF: 0 spironolactone 25 mg Tablet 12.5 mg PO DAILY Qty: 30 RF: 0 Continued metolazone 2.5 mg tablet 2.5 mg PO DAILY PRN (Reason: weight gain, SOB, edema) Qty: 15 RF: 5 escitalopram oxalate 20 mg tablet 20 mg PO DAILY Qty: 90 RF: 3 atorvastatin 40 mg tablet 40 mg PO HS Qty: 90 RF: 3 amoxicillin 500 mg capsule 2,000 mg PO .COMPLEX RF: 0 promethazine 12.5 mg tablet 12.5 mg PO Q6 PRN (Reason: Nausea) Qty: 30 RF: 0 digoxin 125 mcg (0.125 mg) tablet 125 mcg PO DAILY RF: 0 trazodone 50 mg Tablet 50 mg PO HS RF: 0 acetaminophen [Tylenol] 325 mg Tablet 325 mg PO Q6H PRN (Reason: Pain) RF: 0 phenazopyridine [Pyridium] 200 mg Tablet 200 mg PO TID PRN (Reason: Bladder Spasms) RF: 0 metformin 850 mg Tablet 850 mg PO DAILY RF: 0 albuterol 90 mcg/actuation Aerosol 108 mcg INHALATION Q4H PRN (Reason: Wheezing) RF: 0 fluticasone propionate [Flonase] 50 mcg/actuation [place],Suspension 2 spray INTRANASAL DAILY RF: 0 loratadine 10 mg Capsule 10 mg PO DAILY PRN (Reason: Allergy Symptoms) RF: 0 empagliflozin 25 mg Tablet 25 mg PO DAILY RF: 0 Changed warfarin 5 mg Tablet 5 mg PO DAILY Qty: 30 RF: 0 bumetanide 1 mg tablet 1 mg PO DAILY Qty: 30 RF: 0 Discontinued potassium chloride 10 mEq capsule, extended release 10 meq PO DAILY Qty: 30 RF: 0 amlodipine 2.5 mg tablet 2.5 mg PO DAILY RF: 0 metoprolol tartrate [Lopressor] 50 mg Tablet 100 mg PO BID RF: 0 Admission Data Admit Date/Time: 06/18/21 01:20 Attending Provider: Natalee Saldivar Admit Provider: Johnny Cornejo Primary Care Provider: Jonah Lacey Other Providers: Johnny Cornejo ; Jeffery Lawson ; Dk Villela ; Davis Suarez ; Rodrigue Smith ; Mulugeta Vasquez ; Abrahan Amaral Jr ; Tia León ; Vanessa Morales ; Marietta Fitzgerald ; Anthony Tripp ; Andrea Rios ; Red Carnes ; Aruna Mack ; Ni Maya ; Bryan Castañeda ; Stefan Martinez Michael K. ; Nolan Lowery
--- NOTE | 2021-06-23 07:03 | Electrocardiogram Report ---
Test Reason : Blood Pressure : / mmHG Vent. Rate : 093 BPM Atrial Rate : 108 BPM P-R Int : 000 ms QRS Dur : 126 ms QT Int : 390 ms P-R-T Axes : 000 -04 250 degrees QTc Int : 484 ms Atrial fibrillation Right bundle branch block T wave abnormality, consider inferolateral ischemia Abnormal ECG When compared with ECG of 17-JUN-2021 22:35, T wave inversion now evident in Inferolateral leads Confirmed by Tai León ([id number]) on 06/23/2021 7:03:14 AM Referred By: REFERRED SELF Confirmed By:Tai León
== END 2021-06-21 14:52 | disposition home or self-care (01) | DRG 291 ==
LOC: ED 22:17 → 2E 06-18 01:20 → SUATTDRO 06-18 01:20 → 2E 06-18 03:35

== ENCOUNTER 2021-07-13 13:49 | Inpatient (IN) ==
--- NOTE | 2021-07-13 17:47 | Emergency Department Note ---
History of Present Illness General Chief complaint: Eye Problems Stated complaint: CANNOT SEE OUT OF RIGHT EYE Time Seen by Provider: 07/13/21 17:25 Source: patient and family (Son who is at the bedside) Mode of arrival: ambulatory Limitations: no limitations History of Present Illness Patient is a 71-year-old female who comes in after having visual disturbance in her right eye this happened while she was typing at 130. She denies any pain she said she could not see at all out of the right eye the left eye was unaffected since then she is gotten significantly better and can see but is still not back to baseline. No floater she did see some white flashes in triage. No head trauma or headache. No eye pain no other neurologic symptoms, specifically no difficulty speaking swallowing no focal numbness weakness no dizziness or lightheadedness. She is on Coumadin for A. fib and artificial heart valve and her INR checked this morning was 1.7. No history of CVA or TIA she recently had CHF and was in the hospital she denies any chest pain or any shortness of breath with exception of dyspnea on exertion which is getting better. No significant edema. No fever or cough. Home Medications Medication Instructions Recorded Confirmed Type amoxicillin 500 mg capsule 2,000 mg PO DIRECTED PRN cap 09/17/18 07/13/21 History promethazine 12.5 mg tablet 12.5 mg PO Q6 PRN #30 tab 09/17/18 07/13/21 History atorvastatin 40 mg tablet 40 mg PO HS #90 tab 03/09/21 07/13/21 Rx acetaminophen 325 mg tablet 650 mg PO Q6H PRN 06/18/21 07/13/21 History (Tylenol) digoxin 125 mcg (0.125 mg) tablet 125 mcg PO DAILY 06/18/21 07/13/21 History fluticasone propionate 50 2 spray INTRANASAL DAILY 06/18/21 07/13/21 History mcg/actuation nasal spray,suspension loratadine 10 mg capsule 10 mg PO DAILY PRN 06/18/21 07/13/21 History phenazopyridine 200 mg tablet 200 mg PO TID PRN 06/18/21 07/13/21 History (Pyridium) trazodone 50 mg tablet 50 mg PO HS 06/18/21 07/13/21 History bumetanide 1 mg tablet 1 mg PO DAILY #30 tab 06/21/21 07/13/21 Rx metoprolol succinate 100 mg 300 mg PO DAILY #90 tab 06/21/21 07/13/21 Rx tablet,extended release 24 hr (Toprol XL) escitalopram oxalate 20 mg tablet 20 mg PO DAILY tab 06/25/21 07/13/21 History sacubitril 24 mg-valsartan 26 mg 1 tab PO BID #60 tab 07/09/21 07/13/21 Rx tablet (Entresto) spironolactone 25 mg tablet 25 mg PO DAILY #30 tab 07/09/21 07/13/21 Rx albuterol sulfate 90 mcg/actuation 2 puff INHALATION DIRECTED PRN 07/13/21 07/13/21 History aerosol inhaler empagliflozin 25 mg tablet 25 mg PO DAILY 07/13/21 07/13/21 History (Jardiance) metformin 850 mg tablet 850 mg PO DAILY 07/13/21 07/13/21 History warfarin 5 mg tablet 5 mg PO DIRECTED 07/13/21 07/13/21 History Allergies Allergy/AdvReac Type Severity Reaction Status Date / Time latex Allergy Intermediate skin red Verified 07/13/21 17:49 and blistered ragweed pollen Allergy Intermediate CONGESTION Verified 07/13/21 17:49 Iodinated Contrast Media Allergy Mild Unknown Verified 07/13/21 17:49 Past Med/Surg History Medical History (Updated 07/13/21 @ 23:31 by Eugene Chang MD) Acute exacerbation of CHF (congestive heart failure) (06/2021) Allergic rhinitis Anxiety Arthritis Atrial fibrillation with RVR (06/2021) Chronic diastolic congestive heart failure DMII (diabetes mellitus, type 2) HFrEF (heart failure with reduced ejection fraction) History of nephrolithiasis Insomnia Ureteral stricture Surgical History (Updated 07/13/21 @ 23:29 by Eugene Chang MD) History of section History of oophorectomy, unilateral S/P tonsillectomy Family History Brother Heart disease Diabetes Prostate cancer Father Heart disease Diabetes Prostate cancer Mother Hypertension Social History Smoking Status: Former smoker Hx Alcohol Use: Yes Alcohol type: wine Hx Substance Use: No Preferred Language: [place] Citizen Communication Ability: Effective Senior Validation Engineer Required: No Beliefs That Will Affect Care: None marital status: Current Living Situation: Family How many Children do You have: 1 Feels Safe at Home: Yes Assistive Devices: None Review of Systems A total of 10 systems reviewed and were otherwise negative Physical Exam Vital Signs Vital Signs - 24 hr 07/13/21 14:08 07/13/21 18:01 07/13/21 18:13 Temperature 37 C Temperature Source Oral Pulse Rate 65 74 81 Pulse Rate [Bilateral Apical] Pulse Rate from SpO2 Sensor 67 Respiratory Rate 18 28 H 23 Respiratory Depth Normal Blood Pressure 93/63 L 125/70 Blood Pressure [Left Arm] Blood Pressure Mean 73 88 Blood Pressure Mean [Left Arm] Pulse Oximetry 95 95 96 Oxygen Delivery Method Room Air Room Air Room Air Sepsis Recent Fever Within 48 Hours No Sepsis New/Unexplained Change in Mental Status No Sepsis Action Taken by Nursing No Action Required 07/13/21 18:30 07/13/21 19:24 07/13/21 20:16 Temperature Temperature Source Pulse Rate 84 Pulse Rate [Bilateral Apical] 88 72 Pulse Rate from SpO2 Sensor Respiratory Rate 24 20 20 Respiratory Depth Blood Pressure 115/78 Blood Pressure [Left Arm] 118/84 128/77 Blood Pressure Mean 90 Blood Pressure Mean [Left Arm] 95 94 Pulse Oximetry 96 94 98 Oxygen Delivery Method Room Air Room Air Sepsis Recent Fever Within 48 Hours Sepsis New/Unexplained Change in Mental Status Sepsis Action Taken by Nursing 07/13/21 21:01 07/13/21 22:13 Temperature Temperature Source Pulse Rate Pulse Rate [Bilateral Apical] 73 78 Pulse Rate from SpO2 Sensor Respiratory Rate 20 20 Respiratory Depth Blood Pressure Blood Pressure [Left Arm] 131/74 127/70 Blood Pressure Mean Blood Pressure Mean [Left Arm] 93 89 Pulse Oximetry 92 92 Oxygen Delivery Method Room Air Room Air Sepsis Recent Fever Within 48 Hours Sepsis New/Unexplained Change in Mental Status Sepsis Action Taken by Nursing General: Well developed well nourished older female who appears non-ill in no acute distress, breathing comfortably on room air. Normal speech HEENT: Normal cephalic atraumatic. Pupils are equal round and reactive to light. Extraocular movements are intact. Oropharynx is pink with moist mucous membranes. No swelling of the mouth lips or tongue. Neck: Supple with a midline trachea. No meningeal signs or stiffness, no JVD or bruits. No Stridor. Chest: Clear to auscultation bilaterally. No wheezes or rhonchi. No increased work of breathing. Heart: Regular rate and rhythm without murmurs or gallops. Abdomen: Soft nontender, nondistended without rebound guarding or rigidity. Extremities: No cyanosis clubbing or edema. No calf tenderness or assymetry Spine/Back. Non tender to palpation. No CVA tenderness Skin: Good turgor without rashes. Neurologic exam: Cranial nerves two through 12 are intact. Motor and sensation are intact and symmetrical throughout. She is able to count fingers when I checked her at the bedside with a low the right eye. Course Administered Medications Atorvastatin Calcium (Atorvastatin 40 Mg Tab) 40 mg PO [facility] Stop: 08/12/21 20:59 Last Admin: 07/13/21 22:45 Dose: 40 mg Documented by: [id number] Sacubitril/Valsartan (Valsartan/Sacubitril 26/24mg Tab) 1 tab PO BID [facility] Stop: 08/12/21 20:59 Last Admin: 07/13/21 22:45 Dose: 1 tab Documented by: [id number] Trazodone HCl (Trazodone Hcl 50 Mg Tab) 50 mg PO [facility] Stop: 08/12/21 20:59 Last Admin: 07/13/21 22:44 Dose: 50 mg Documented by: [id number] Warfarin Sodium (Warfarin Sod 7.5 Mg Tab) 5 mg PO [id number] [facility] Stop: 08/12/21 22:14 Last Admin: 07/13/21 22:47 Dose: Not Given Documented by: [id number] Discontinued Medications Gadobutrol (Gadobutrol 65ml Vial) 7.5 ml IV ONCE ONE Stop: 07/13/21 22:18 Last Admin: 07/13/21 22:18 Dose: 7.5 ml Documented by: [id number] Lorazepam (Lorazepam 2 Mg/1 Ml Vial) 1 mg IV ONCE ONE; Protocol Stop: 07/13/21 21:01 Last Admin: 07/13/21 21:00 Dose: 1 mg Documented by: [id number] Medical Decision Making Differential Diagnosis CVA, TIA, amaurosis fugax, posterior eye issue/bleed, arrhythmia, anemia, optic neuritis or other ocular disease Medical Records Attestation: I reviewed the patient's medical records. Home Medications Current Medication List: was personally reviewed by me Laboratory Data Attestation: I reviewed the patient's lab results. Result diagrams: 07/13/21 17:27 07/13/21 17:27 Lab Results 07/13/21 07/13/21 07/13/21 Range/Units 17:27 17:27 17:27 WBC 9.42 (4.8-10.8) K/uL RBC 5.99 H (4.2-5.4) M/uL Hgb 16.8 H (12.0-16.0) g/dL Hct 50.1 H (37-47) % MCV 83.6 (80-100) fL MCH 28.0 (25-34) pg MCHC 33.5 (32-36) g/dL RDW Std Deviation 52.7 H (36.4-46.3) fL RDW Coeff of Angelic 17.1 H (11.5-14.5) % Plt Count 222 (130-400) K/uL MPV 10.1 (7.4-10.4) fL Immature Gran % (Auto) 0.1 % Neut % (Auto) 68.6 % Lymph % (Auto) 22.3 % Faulk % (Auto) 6.5 % Eos % (Auto) 2.2 % Baso % (Auto) 0.3 % Neut # (Auto) 6.46 (1.4-6.5) K/uL Lymph # (Auto) 2.10 (1.2-3.4) K/uL Faulk # (Auto) 0.61 H (0.11-0.59) K/uL Eos # (Auto) 0.21 (0-0.5) K/uL Baso # (Auto) 0.03 (0-0.2) K/uL Immature Gran # (Auto) 0.01 (0.00-0.02) K/uL PT 18.0 H (9.0-12.0) Seconds INR 1.7 H (0.9-1.1) APTT 32.4 H (21.0-31.0) Seconds PTT Ratio 1.2 Sodium 136 (136-145) mmol/L Potassium 4.6 (3.5-5.1) mmol/L Chloride 102 (98-107) mmol/L Carbon Dioxide 24 (21-32) mmol/L Anion Gap 10 (3-11) BUN 29 H (6-23) mg/dl Creatinine 0.91 (0.6-1.2) mg/dl Est Cr Clr Drug Dosing 54.4 ml/min Est GFR ( Amer) 72.5 ml/min Est GFR (Non-Af Amer) 62.6 ml/min BUN/Creatinine Ratio 31.9 H (10-20) Glucose 151 H (70-99(Fasting)) mg/dl Calcium 10.3 H (8.5-10.1) mg/dl Magnesium 1.9 (1.7-2.4) mg/dl Total Bilirubin 0.8 (0.2-1.0) mg/dl AST 60 H (13-39) U/L ALT 114 H (7-52) U/L Alkaline Phosphatase 152 H (34-104) U/L Troponin I High Sens 16.2 H (0-14) pg/ml Total Protein 8.1 (6.0-8.3) gm/dl Albumin 4.6 (3.4-5.0) gm/dl Globulin 3.5 (2.5-4.0) gm/dl Albumin/Globulin Ratio 1.3 (0.9-2) SARS-CoV-2, RNA, NAAT (NEGATIVE) 07/13/21 Range/Units 22:00 WBC (4.8-10.8) K/uL RBC (4.2-5.4) M/uL Hgb (12.0-16.0) g/dL Hct (37-47) % MCV (80-100) fL MCH (25-34) pg MCHC (32-36) g/dL RDW Std Deviation (36.4-46.3) fL RDW Coeff of Angelic (11.5-14.5) % Plt Count (130-400) K/uL MPV (7.4-10.4) fL Immature Gran % (Auto) % Neut % (Auto) % Lymph % (Auto) % Faulk % (Auto) % Eos % (Auto) % Baso % (Auto) % Neut # (Auto) (1.4-6.5) K/uL Lymph # (Auto) (1.2-3.4) K/uL Faulk # (Auto) (0.11-0.59) K/uL Eos # (Auto) (0-0.5) K/uL Baso # (Auto) (0-0.2) K/uL Immature Gran # (Auto) (0.00-0.02) K/uL PT (9.0-12.0) Seconds INR (0.9-1.1) APTT (21.0-31.0) Seconds PTT Ratio Sodium (136-145) mmol/L Potassium (3.5-5.1) mmol/L Chloride (98-107) mmol/L Carbon Dioxide (21-32) mmol/L Anion Gap (3-11) BUN (6-23) mg/dl Creatinine (0.6-1.2) mg/dl Est Cr Clr Drug Dosing ml/min Est GFR ( Amer) ml/min Est GFR (Non-Af Amer) ml/min BUN/Creatinine Ratio (10-20) Glucose (70-99(Fasting)) mg/dl Calcium (8.5-10.1) mg/dl Magnesium (1.7-2.4) mg/dl Total Bilirubin (0.2-1.0) mg/dl AST (13-39) U/L ALT (7-52) U/L Alkaline Phosphatase (34-104) U/L Troponin I High Sens (0-14) pg/ml Total Protein (6.0-8.3) gm/dl Albumin (3.4-5.0) gm/dl Globulin (2.5-4.0) gm/dl Albumin/Globulin Ratio (0.9-2) SARS-CoV-2, RNA, NAAT NEGATIVE (NEGATIVE) Imaging Data Attestation: I personally reviewed and interpreted this imaging study as follows: My Impression: CT of the head -no acute hemorrhage or mass-effect Radiologist's Impression: Head CT 07/13/21 17:41 CT OF THE HEAD WITHOUT CONTRAST CLINICAL HISTORY: Stroke Like Symptoms COMPARISON STUDY: Head CT December 25, 2018. CT DOSE: 537.48 mGy.cm TECHNIQUE: Helical axial images of the head were obtained without IV contrast. Automated exposure control was utilized for the study. A dose lowering technique was utilized adhering to the principles of ALARA. FINDINGS: No acute intracranial hemorrhage, midline shift or mass effect is present. White matter hypodensity suggests small vessel disease. The ventricular system is unremarkable. The basal cisterns are patent. No extra-axial collections are present. There are no findings to suggest acute dural sinus thrombosis or acute territorial infarct. No significant calvarial abnormalities are present. Visualized portions of the sinuses and mastoid air cells are clear. IMPRESSION: No acute intracranial findings. ACT 112: Negative or not required by law. Electronically signed by: Andrew Lujan M.D. 07/13/2021 6:31 PM ECG Data Attestation: I personally reviewed and interpreted this ECG as follows: Indication: + weakness Rate (beats per minute): 72 Rhythm: + atrial fibrillation ECG Intervals/blocks: + IVCD ECG Stem: + Normal ECG ST segments: + Nonspecific ST abnormalities ECG Findings: no PVCs Comparison ECG Date: from (07/01/21) Change: no significant change MDM Narrative This patient comes in as described above. She was placed in room B9. I initially saw her in the B pod subwait as there was backup to get into the room. At that point the patient was doing significantly better and was over 4 hours out from her initial onset of symptoms. She is also on Coumadin and tells me her INR was 1.7 this morning. Based on these 2 factors I do not think she is a thrombolytic candidate. She also tells me she has a significant allergic reaction to IV contrast so I just did a CAT scan without contrast. Multiple blood testing was obtained. I was concerned this could be an embolic event given the fact that her INR was on the lower side today. She has no other neurologic deficits and again her vision is gotten significantly better it so far. EKG shows baseline A. fib. Initial high-sensitivity troponin all is only mildly elevated and she has no chest pain or shortness of breath. she has no significant electrolyte or metabolic abnormalities. CAT scan of her head is unremarkable. Her symptoms are getting better but given her history of concerned that this could be have been amaurosis fugax attack/stroke/TIA. I do think she needs to be admitted/observed for further inpatient treatment and evaluation and neurologic and possibly ophthalmologic work-up. I have consulted the [facility] hospitalist to see her the ER for these measures. Testing was negative Continuous cardiac monitoring: Orders placed in EMR for continuous cardiac rehabilitation specialist. My interpretation was noted to be in rate controlled A. fib with a rate of 78 Impression & Plan Sudden visual loss of right eye, History of mechanical aortic valve replacement, Anticoagulant long-term use, A-fib, Lab test negative for COVID-19 virus Discharge Plan Visit Data Chief Complaint: Eye Problems Stated Complaint: CANNOT SEE OUT OF RIGHT EYE ED Provider: Eugene Chang Discharge Problem: Sudden visual loss of right eye, History of mechanical aortic valve replacement, Anticoagulant long-term use, A-fib, Lab test negative for COVID-19 virus Discharge Instructions Interventions: ED Discharge Assessment Last Done: 07/13/21 23:06 Forms Stand Alone Forms: My [facility] Prescriptions Prescriptions: No Action atorvastatin 40 mg tablet 40 mg PO HS Qty: 90 RF: 3 spironolactone 25 mg tablet 25 mg PO DAILY Qty: 30 RF: 5 Entresto 24-26 mg tablet 1 tab PO BID Qty: 60 RF: 0 amoxicillin 500 mg capsule 2,000 mg PO DIRECTED PRN (Reason: 1 HR. PRIOR TO DENTAL APPT.) RF: 0 promethazine 12.5 mg tablet 12.5 mg PO Q6 PRN (Reason: Nausea) Qty: 30 RF: 0 escitalopram oxalate 20 mg tablet 20 mg PO DAILY RF: 0 albuterol sulfate 90 mcg/actuation Hfa Aerosol Inhaler 2 puff INHALATION DIRECTED PRN (Reason: Shortness Of Breath Or Wheezing) RF: 0 warfarin 5 mg tablet 5 mg PO DIRECTED RF: 0 metformin 850 mg tablet 850 mg PO DAILY RF: 0 Jardiance 25 mg tablet 25 mg PO DAILY RF: 0 digoxin 125 mcg (0.125 mg) tablet 125 mcg PO DAILY RF: 0 trazodone 50 mg Tablet 50 mg PO HS RF: 0 acetaminophen [Tylenol] 325 mg Tablet 650 mg PO Q6H PRN (Reason: Pain) RF: 0 phenazopyridine [Pyridium] 200 mg Tablet 200 mg PO TID PRN (Reason: Bladder Spasms) RF: 0 fluticasone propionate 50 mcg/actuation [place],Suspension 2 spray INTRANASAL DAILY RF: 0 loratadine 10 mg Capsule 10 mg PO DAILY PRN (Reason: Allergy Symptoms) RF: 0 metoprolol succinate [Toprol XL] 100 mg tablet extended release 24 hr 300 mg PO DAILY Qty: 90 RF: 0 bumetanide 1 mg tablet 1 mg PO DAILY Qty: 30 RF: 0 Referrals Referrals: Jonah Lacey, [Primary Care Provider] -
[2021-07-13 18:01] LABS: Basophils # (auto) 0.03 K/uL (0-0.2); Basophils % (auto) 0.3 %; Eosinophils # (auto) 0.21 K/uL (0-0.5); Eosinophils % (auto) 2.2 %; Hematocrit (blood only) 50.1 % (37-47); Hemoglobin 16.8 g/dL (12.0-16.0); Immature Granulocytes # (auto) 0.01 K/uL (0.00-0.02); Immature Granulocytes % (auto) 0.1 %; Lymphocytes % (auto) 22.3 %; Mean Corpuscular Hgb Conc 33.5 g/dL (32-36); Mean Corpuscular Volume 83.6 fL (80-100); Mean Platelet Volume 10.1 fL (7.4-10.4); Monocytes # (auto) 0.61 K/uL (0.11-0.59); Monocytes % (auto) 6.5 %; Neutrophils # (auto) 6.46 K/uL (1.4-6.5); Neutrophils % (auto) 68.6 %; Platelet Count 222 K/uL (130-400); RDW Coefficient of Variation 17.1 % (11.5-14.5); RDW Standard Deviation 52.7 fL (36.4-46.3); Red Blood Count 5.99 M/uL (4.2-5.4); White Blood Count 9.42 K/uL (4.8-10.8)
[2021-07-13 18:24] LABS: INR 1.7 (0.9-1.1); Partial Thromboplastin Ratio 1.2; Partial Thromboplastin Time 32.4 Seconds (21.0-31.0)
--- NOTE | 2021-07-13 18:32 | CT Scan Report ---
CT OF THE HEAD WITHOUT CONTRAST CLINICAL HISTORY: Stroke Like Symptoms COMPARISON STUDY: Head CT December 25, 2018. CT DOSE: 537.48 mGy.cm TECHNIQUE: Helical axial images of the head were obtained without IV contrast. Automated exposure con trol was utilized for the study. A dose lowering technique was utilized adhering to the principles o f ALARA. FINDINGS: No acute intracranial hemorrhage, midline shift or mass effect is present. White matter hyp odensity suggests small vessel disease. The ventricular system is unremarkable. The basal cisterns ar e patent. No extra-axial collections are present. There are no findings to suggest acute dural sinus thrombosis or acute territorial infarct. No significant calvarial abnormalities are present. Visualiz ed portions of the sinuses and mastoid air cells are clear. IMPRESSION: No acute intracranial findings. ACT 112: Negative or not required by law. Electronically signed by: Andrew Lujan M.D. 07/13/2021 6:31 PM
[2021-07-13 18:47] LABS: Albumin Globulin Ratio 1.3 (0.9-2); Albumin Level 4.6 gm/dl (3.4-5.0); BUN Creatinine Ratio 31.9 (10-20); Bilirubin,Total 0.8 mg/dl (0.2-1.0); Calcium 10.3 mg/dl (8.5-10.1); Creatinine Clr Calc Pharmacy 54.4 ml/min; Est GFR (African American) 72.5 ml/min; Est GFR (Non-African American) 62.6 ml/min; Globulin 3.5 gm/dl (2.5-4.0); Magnesium 1.9 mg/dl (1.7-2.4); Potassium 4.6 mmol/L (3.5-5.1); Total Protein 8.1 gm/dl (6.0-8.3)
[2021-07-13 18:49] LABS: Troponin I High Sensitivity 16.2 pg/ml (0-14)
[2021-07-13] MEDS ORDERED: PHENAZOPYRIDINE HCL 200 MG TAB PO PRN (20:37)
[2021-07-13] MEDS ORDERED: ALBUTEROL HFA 8 GM INHALER INH PRN (20:37)
[2021-07-13] MEDS ORDERED: ACETAMINOPHEN 325 MG TAB PO PRN (20:37)
[2021-07-13] MEDS ORDERED: PROMETHAZINE HCL 25 MG TAB PO PRN (20:37)
--- NOTE | 2021-07-13 20:54 | History & Physical Report ---
Date of Service July 13, 2021 Assessment & Plan (1) Sudden visual loss of right eye: (2) Permanent atrial fibrillation: (3) History of mechanical aortic valve replacement: (4) HFrEF (heart failure with reduced ejection fraction): (5) DMII (diabetes mellitus, type 2): (6) HTN (hypertension): (7) Dyslipidemia: (8) Insomnia: Plan: Pt is a 71 y/o F with hx of Afib on Coumadin, s/p AVR (mechanical), HTN, HFrEF (30-35%), DMII, HLD, Insomnia came into the ER with sudden vision loss. Sudden Vision loss on the R side: -symptoms are improving - VSS - overall normal exam - discussed the case with Neurology: recommended MRA [place] and Neck ---Pt is claustrophobic and hx of iodine dye contrast --- Will do Ativan 1mg IV before study: pt was very nervous abt the study -will continue Coumadin: already took 10mg tonight -on statin - neurology consulted - admitted to Tele AVR with Afib: -will continue digoxin, Coumadin, metoprolol - INR is 1.7 ---- Coumadin 10mg tonight (which was recommended by [facility] Coumadin clinic) HFrEF: -pt is euvolemic -continue aldactone, bumex, Entresto DMII: -hold metformin -continue jardiance -ISS HTN/HLD/Insomnia: -continue home meds Diet:Cardiac and DMII DVT PPx: Coumadin Code Status: Full code Emergency Contact: Salvador- Son: [phone] History of Present Illness Chief Complaint: Sudden vision loss Primary Care Provider: Jonah Lacey DO Pt is a 71 y/o F with hx of Afib on Coumadin, s/p AVR (mechanical), HTN, HFrEF (30-35%), DMII, HLD, Insomnia came into the ER with sudden vision loss. Per pt she was at work: around 1:30pm she could not see anything from her R eye (Complete grayness). She denied any associated pain, LAM, slur speech, or recent trauma. Denied any prior hx of TIA or CVA Her last INR was 1.7 therefore she took higher Coumadin dose today. 10mg at 7 pm. At bedside: per pt her vision is improving. Now she is having blurry vision (cotton ball) only on the top 1/3 of the vision field. She denied any LAM, Slur speech, CP, SOB, or extremity weakness. Per pt she had shock with iodine contrast when she had a CT due to her kidney stones. Had MRI in the past without any problem but needed sedation due to claustrophobia. Allergies Allergy/AdvReac Type Severity Reaction Status Date / Time latex Allergy Intermediate skin red Verified 07/13/21 17:49 and blistered ragweed pollen Allergy Intermediate CONGESTION Verified 07/13/21 17:49 Iodinated Contrast Media Allergy Mild Unknown Verified 07/13/21 17:49 Home Medications Medication Instructions Recorded Confirmed Type amoxicillin 500 mg capsule 2,000 mg PO DIRECTED PRN cap 09/17/18 07/13/21 History promethazine 12.5 mg tablet 12.5 mg PO Q6 PRN #30 tab 09/17/18 07/13/21 History atorvastatin 40 mg tablet 40 mg PO HS #90 tab 03/09/21 07/13/21 Rx acetaminophen 325 mg tablet 650 mg PO Q6H PRN 06/18/21 07/13/21 History (Tylenol) digoxin 125 mcg (0.125 mg) tablet 125 mcg PO DAILY 06/18/21 07/13/21 History fluticasone propionate 50 2 spray INTRANASAL DAILY 06/18/21 07/13/21 History mcg/actuation nasal spray,suspension loratadine 10 mg capsule 10 mg PO DAILY PRN 06/18/21 07/13/21 History phenazopyridine 200 mg tablet 200 mg PO TID PRN 06/18/21 07/13/21 History (Pyridium) trazodone 50 mg tablet 50 mg PO HS 06/18/21 07/13/21 History bumetanide 1 mg tablet 1 mg PO DAILY #30 tab 06/21/21 07/13/21 Rx metoprolol succinate 100 mg 300 mg PO DAILY #90 tab 06/21/21 07/13/21 Rx tablet,extended release 24 hr (Toprol XL) escitalopram oxalate 20 mg tablet 20 mg PO DAILY tab 06/25/21 07/13/21 History sacubitril 24 mg-valsartan 26 mg 1 tab PO BID #60 tab 07/09/21 07/13/21 Rx tablet (Entresto) spironolactone 25 mg tablet 25 mg PO DAILY #30 tab 07/09/21 07/13/21 Rx albuterol sulfate 90 mcg/actuation 2 puff INHALATION DIRECTED PRN 07/13/21 07/13/21 History aerosol inhaler empagliflozin 25 mg tablet 25 mg PO DAILY 07/13/21 07/13/21 History (Jardiance) metformin 850 mg tablet 850 mg PO DAILY 07/13/21 07/13/21 History warfarin 5 mg tablet 5 mg PO DIRECTED 07/13/21 07/13/21 History Past Med/Surg History Medical History (Updated 07/13/21 @ 20:52 by Beck Chapa MD) Acute exacerbation of CHF (congestive heart failure) (06/2021) Allergic rhinitis Anxiety Arthritis Atrial fibrillation with RVR (06/2021) Chronic diastolic congestive heart failure DMII (diabetes mellitus, type 2) HFrEF (heart failure with reduced ejection fraction) History of nephrolithiasis Insomnia Ureteral stricture Surgical History History of section History of oophorectomy, unilateral S/P tonsillectomy Family History Brother Heart disease Diabetes Prostate cancer Father Heart disease Diabetes Prostate cancer Mother Hypertension Social History Smoking Status: Former smoker Hx Alcohol Use: Yes Alcohol type: wine Hx Substance Use: No Preferred Language: [place] Communication Ability: Effective Internal Revenue Agent Required: No Beliefs That Will Affect Care: None marital status: Current Living Situation: Family How many Children do You have: 1 Feels Safe at Home: Yes Assistive Devices: None Review of Systems Review of Systems: At least 10 Review of systems were reviewed and all nega tive except as indicated in HPI Physical Exam Physical Exam: General:. NAD, well developed, well nourished, average body habitus HEENT:.PERRLA, EOMI, Normocephalic and atraumatic, Normal Conjunctiva, Sclera is non-icteric Lungs:. No signs of respiratory distress, CTA, no wheezing or crackles Heart:. Normal S1, S2, no murmur Abdominal:. ND, Soft, NT MSK:. No deformities of UE and LE, No leg edema neuro: CN II-XII intact, normal motor strength on b/l LE and UE Psych:. AAOx3, normal affect Results & Data Results & Data ([facility]) Vital Signs (Past 12 Hours) Vital Signs Temp Pulse Pulse Resp BP BP Pulse Ox 07/13/21 20:16 72 20 128/77 98 07/13/21 19:24 88 20 118/84 94 07/13/21 18:30 84 24 115/78 96 07/13/21 18:13 81 23 125/70 96 07/13/21 18:01 74 28 H 93/63 L 95 07/13/21 14:08 37 C 65 18 95 Laboratory Results Short CBC 07/13/21 Range/Units 17:27 WBC 9.42 (4.8-10.8) K/uL Hgb 16.8 H (12.0-16.0) g/dL Hct 50.1 H (37-47) % Plt Count 222 (130-400) K/uL BMP 07/13/21 17:27 Sodium 136 Potassium 4.6 Chloride 102 Carbon Dioxide 24 BUN 29 H Creatinine 0.91 Glucose 151 H Calcium 10.3 H Liver Function 07/13/21 Range/Units 17:27 Total Bilirubin 0.8 (0.2-1.0) mg/dl AST 60 H (13-39) U/L ALT 114 H (7-52) U/L Alkaline Phosphatase 152 H (34-104) U/L Albumin 4.6 (3.4-5.0) gm/dl Diagnostic Findings Head CT 07/13/21 17:41 CT OF THE HEAD WITHOUT CONTRAST CLINICAL HISTORY: Stroke Like Symptoms COMPARISON STUDY: Head CT December 25, 2018. CT DOSE: 537.48 mGy.cm TECHNIQUE: Helical axial images of the head were obtained without IV contrast. Automated exposure control was utilized for the study. A dose lowering technique was utilized adhering to the principles of ALARA. FINDINGS: No acute intracranial hemorrhage, midline shift or mass effect is present. White matter hypodensity suggests small vessel disease. The ventricular system is unremarkable. The basal cisterns are patent. No extra-axial collections are present. There are no findings to suggest acute dural sinus thrombosis or acute territorial infarct. No significant calvarial abnormalities are present. Visualized portions of the sinuses and mastoid air cells are clear. IMPRESSION: No acute intracranial findings. ACT 112: Negative or not required by law. Electronically signed by: Andrew Lujan M.D. 07/13/2021 6:31 PM Code Status & VTE Plan VTE Prophylaxis Plan VTE Prophylaxis will be ordered: Yes
[2021-07-13] MEDS ORDERED: LORazepam 2 MG/1 ML VIAL IV ONE (21:00)
[2021-07-13] MEDS ORDERED: GADOBUTROL 65ML VIAL IV ONE (22:17)
[2021-07-13] MEDS: traZODone HCL 50 MG TAB PO SCH (22:44)
[2021-07-13] MEDS: ATORVASTATIN 40 MG TAB PO SCH (22:45)
[2021-07-13] MEDS: VALSARTAN/SACUBITRIL 26/24MG TAB PO SCH (22:45)
[2021-07-13] MEDS: WARFARIN SOD 7.5 MG TAB PO SCH (22:47)
[2021-07-13] MEDS ORDERED: GLUCOSE 40% GEL 15 GM TUBE PO PRN (23:39)
[2021-07-13] MEDS ORDERED: CARBOHYDRATES FOR HYPOGLYCEMIA PO PRN (23:39)
[2021-07-13] MEDS ORDERED: GLUCAGON FOR INJ 1 MG VIAL SQ PRN (23:39)
[2021-07-13] MEDS ORDERED: DEXTROSE 50% 50 ML SYRINGE IV PRN (23:39)
[2021-07-13] MEDS ORDERED: GLUCOSE 10 TABS/TUBE PO PRN (23:39)
[2021-07-13] MEDS: INSULIN ASPART PER UNIT SC SCH (23:49)
[2021-07-14 06:50] LABS: Basophils # (auto) 0.02 K/uL (0-0.2); Basophils % (auto) 0.2 %; Eosinophils % (auto) 2.5 %; Hemoglobin 14.9 g/dL (12.0-16.0); Immature Granulocytes # (auto) 0.02 K/uL (0.00-0.02); Immature Granulocytes % (auto) 0.2 %; Lymphocytes # (auto) 1.46 K/uL (1.2-3.4); Lymphocytes % (auto) 18.2 %; Mean Corpuscular Hgb Conc 32.4 g/dL (32-36); Mean Corpuscular Volume 83.3 fL (80-100); Mean Platelet Volume 9.6 fL (7.4-10.4); Monocytes # (auto) 0.53 K/uL (0.11-0.59); Monocytes % (auto) 6.6 %; Neutrophils # (auto) 5.81 K/uL (1.4-6.5); Neutrophils % (auto) 72.3 %; Platelet Count 179 K/uL (130-400); RDW Standard Deviation 52.3 fL (36.4-46.3); Red Blood Count 5.52 M/uL (4.2-5.4); White Blood Count 8.04 K/uL (4.8-10.8)
--- NOTE | 2021-07-14 07:03 | Magnetic Resonance Report ---
MR ANGIOGRAM OF THE BRAIN CLINICAL HISTORY: Acute visual loss. COMPARISON STUDY: No priors. TECHNIQUE: 3-D [id number] MR angiography of the intracranial circulation is performed. 3-D tumble views are created and assessed. IV contrast was not administered for this examination. FINDINGS: The internal carotid arteries are widely patent bilaterally, as are the anterior and middle cerebral arteries. The vertebrobasilar system and posterior cerebral arteries are widely patent. The vertebral arteries are codominant. There is no aneurysm, high-grade stenosis, or focal vessel cutoff seen throughout the intracranial circulation. The brain parenchyma is normal as visualized. IMPRESSION: Unremarkable MR angiogram of the brain. ACT 112: Negative or not required by law. Electronically signed by: Galo Kruger M.D. 07/14/2021 7:01 AM
[2021-07-14 07:14] LABS: Albumin Globulin Ratio 1.3 (0.9-2); Albumin Level 3.8 gm/dl (3.4-5.0); BUN Creatinine Ratio 31.8 (10-20); Bilirubin,Total 0.8 mg/dl (0.2-1.0); Calcium 9.5 mg/dl (8.5-10.1); Creatinine Clr Calc Pharmacy 56.1 ml/min; Est GFR (African American) 75.5 ml/min; Est GFR (Non-African American) 65.2 ml/min; Globulin 2.9 gm/dl (2.5-4.0); Total Protein 6.7 gm/dl (6.0-8.3)
[2021-07-14 07:21] LABS: INR 1.8 (0.9-1.1)
[2021-07-14] MEDS: INSULIN ASPART PER UNIT SC SCH ×4 (08:29→20:45)
--- NOTE | 2021-07-14 08:43 | Magnetic Resonance Report ---
MR angio neck wo/w con HISTORY: 71 years-old Female sudden vision loss acute right-sided vision loss COMPARISON: MRA of the head and CT head studies of same day TECHNIQUE: MRA of the neck was obtained both with and without the use of 7.5 cc Gadavist utilizing 3- D [id number] sequencing with MIP reformats. All measurements were obtained according to NASCET cr iteria. FINDINGS: The common and internal carotid arteries are patent. The vertebral arteries are codominant and widely patent. No aneurysm, dissection, high-grade stenosis or arterial occlusion identified. IMPRESSION: Unremarkable MRA of the neck. ACT 112: Negative or not required by law. The above report was generated using voice recognition software. It may contain grammatical, syntax o r spelling errors. Electronically signed by: Saeed Nagel M.D. 07/14/2021 8:42 AM
[2021-07-14] MEDS ORDERED: BUMETANIDE 1 MG TAB PO SCH (09:00)
[2021-07-14] MEDS: SPIRONOLACTONE 25 MG TAB PO SCH (09:18)
[2021-07-14] MEDS: METOPROLOL SUCC 50MG EXT REL TAB PO SCH (09:18)
[2021-07-14] MEDS: ESCITALOPRAM OXALATE 20 MG TAB PO SCH (09:18)
[2021-07-14] MEDS: VALSARTAN/SACUBITRIL 26/24MG TAB PO SCH ×2 (09:19→20:45)
[2021-07-14] MEDS ORDERED: LORazepam 2 MG/1 ML VIAL IV STA (13:54)
[2021-07-14] MEDS: WARFARIN SOD 7.5 MG TAB PO SCH (16:31)
[2021-07-14] MEDS: DIGOXIN 0.125 MG TAB PO SCH (16:32)
[2021-07-14] MEDS ORDERED: LORazepam 2 MG/1 ML VIAL ONE (17:26)
--- NOTE | 2021-07-14 17:29 | Consultation Report ---
DATE OF SERVICE: 07/14/2021 REASON FOR CONSULTATION: Visual loss. HISTORY OF PRESENT ILLNESS: A 71-year-old right-handed female with a history of permanent AFib, on C oumadin, aortic stenosis, status post mechanical AVR, hypertension, congestive heart failure, type 2 diabetes, hyperlipidemia and insomnia. The patient was in her usual state of health. She was counti ng some bills and suddenly became blind in the entire right eye. No symptoms noted in the left eye. As she waited in the Emergency Room for the hospital, things began to clear up more so inferiorly th an superiorly. She noted that she could perceive colors and see things more crisply. Overnight, she has noted some improvement of the superior field of vision in her right eye. Again, nothing in the l eft eye. There is no scintillation, no eye pain, no headache. She has not recently been ill or had a ny head or neck injury. Her INR that day was 1.7. CT of the head noncontrast is unremarkable. MRA of the head and neck, no high-grade stenosis. MRI of the brain not performed. No prior history of t ransient ischemic attack or stroke. PAST MEDICAL HISTORY: As above including anxiety, arthritis, urethral stricture. PAST SURGICAL HISTORY: , oophorectomy, tonsillectomy. FAMILY HISTORY: No family history of stroke. SOCIAL HISTORY: Former smoker, drinks wine. 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 ALLERGIES: LATEX, RAGWEED, IODINATED CONTRAST MEDIA. HOME MEDICINES: Amoxicillin p.r.n., promethazine, atorvastatin, Tylenol, digoxin, fluticasone, lorata dine, Pyridium, trazodone, bumetanide, metoprolol, escitalopram, Entresto, spironolactone, albuterol, Jardiance, metformin and warfarin as directed. PHYSICAL EXAMINATION: 161/70, 82, 18, 36.4. The patient is awake and alert. Speech and language ar e normal and affect is appropriate. Naming repetitions and 3-step commands are normal. The patient is oriented. No carotid bruits are noted. No heart murmurs are appreciable. No temporal artery ten derness is noted. Pupils are equal, round and reactive to light. I do not appreciate an afferent pu pillary defect. The fundus grossly appears normal. There are normal castellano to confrontation in both eyes. No red desaturation is noted. Visual acuity in the right eye is 20/70 and in the left eye is 20/40. There is normal facial symmetry. Motor, full strength in the upper and lowers. Symmetric r eflexes, downgoing toes. Mmwcdy-av-[id number] and vxgl-dd-nxog are normal. Her gait is unremarkable. Sen sation is intact to light touch. 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 PLAN: MRI brain to confirm that it is not a parenchymal stroke, although management is similar. Rec ommend therapeutic anticoagulation. Check sed rate. Echocardiogram. Ophthalmology evaluation post- discharge. The patient can see us in followup as needed. Job ID: [id number]
[2021-07-14] MEDS ORDERED: WARFARIN SOD 2.5 MG TAB PO ONE (18:53)
--- NOTE | 2021-07-14 19:01 | Hospitalist Progress Note ---
Date of Service July 14, 2021 Assessment & Plan (1) Sudden visual loss of right eye: (2) Permanent atrial fibrillation: (3) History of mechanical aortic valve replacement: (4) HFrEF (heart failure with reduced ejection fraction): (5) DMII (diabetes mellitus, type 2): (6) HTN (hypertension): (7) Dyslipidemia: (8) Insomnia: Plan: Pt is a 71 y/o F with hx of Afib on Coumadin, s/p AVR (mechanical), HTN, HFrEF (30-35%), DMII, HLD, Insomnia came into the ER with sudden vision loss. Sudden Vision loss on the R side likely CRAO -symptoms are improving, no temporal artery tenderness (esr 33 on exam), normal neuro exam. - Admitting CT Head, MRA Head and Neck unremarkable. 07/14 MRI pending, Echo pending - Neurology on board, appreciate recs, f/u w/ neuro as OP. Ophthal eval post discharge - Maintain therapeutic anticoagulation. will need close f/u w/ coumadin clinic as OP, will give extra dose 2.5 mg today. - c/w statin and other home meds. AVR with Afib: -will continue digoxin, Coumadin, metoprolol - INR is 1.7 - Extra dose of 2.5 mg coumadin today, f/u [facility]TM clinic closely as OP. HFrEF: -pt is euvolemic -continue aldactone, bumex, Entresto DMII: -hold metformin -continue jardiance -ISS HTN/HLD/Insomnia: -continue home meds Diet:Cardiac and DMII DVT PPx: Coumadin Code Status: Full code Emergency Contact: Silvina Son: [phone] Admission and Anticipated Discharge Date Admission Date: July 13, 2021 Subjective Patient seen and examined at bedside as a follow-up of sudden vision loss in the right eye. Patient does have history of A. fib with RVR on Coumadin. Patient was sitting up in bed, on room air, NAD, no new acute events overnight. Patient reports improving vision in her right eye closer to her baseline. Patient denies any headache surrounding vision loss. Patient denies any dizziness/chest pain/palpitations/belly pain/other review of symptoms. Patient reports eating and moving bowels okay. Physical Exam Physical Exam: GENERAL: Alert and oriented x3. NAD, on RA. HEENT: No pallor, no icterus. Pupils equal, round and reactive to light. Oral mucosa moist. NECK: No JVD, no neck masses. HEART: S1 and S2 heard. Regular rate and rhythm. No murmur, no gallop. RESPIRATORY SYSTEM: Normal AP diameter. No accessory muscle use. No wheezing, no crackles. ABDOMEN: Soft, bowel sounds present, nontender, no distention. CENTRAL NERVOUS SYSTEM: No facial droop. Speech is clear. Obeys simple commands. Moves extremities. EXTREMITIES: No edema, no erythema seen. Results & Data Results & Data ([facility]) Vital Signs (Past 12 Hours) Vital Signs Temp Pulse Pulse Resp BP BP Pulse Ox 07/14/21 16:32 82 07/14/21 16:00 36.4 C L 82 18 161/70 H 95 07/14/21 11:00 36.6 C 76 18 97/62 L 93 07/14/21 08:31 71 112/70 07/14/21 07:00 36.5 C 77 18 113/72 92
--- NOTE | 2021-07-14 19:35 | Magnetic Resonance Report ---
Brain MRI WITHOUT CONTRAST HISTORY: Recent vision loss. visual field cut TECHNIQUE: Multiplanar multisequence MRI of the brain was performed without the use of contrast. COMPARISON STUDY: Head CT 07/13/2021. FINDINGS: There is a punctate focus of restricted diffusion within the left parietal lobe on image 16 . This is consistent with a punctate acute infarct. The midline structures are intact. There is an ol d punctate lacunar infarct within the left cerebellar hemisphere. The paranasal sinuses and mastoid a ir cells are clear. The major vascular flow-voids at the skull base are well-maintained. The ventricl es and sulci demonstrate mild age-related involutional changes. There are few scattered foci of T2 hy perintensity seen within the periventricular white matter of the supratentorial brain. These are nons pecific but favor mild microvascular ischemic change. 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 ACT 112: Negative or not required by law. Electronically signed by: Keith Kaur M.D. 07/14/2021 7:34 PM
[2021-07-14] MEDS: ATORVASTATIN 40 MG TAB PO SCH (20:45)
[2021-07-14] MEDS: traZODone HCL 50 MG TAB PO SCH (20:45)
[2021-07-15 06:54] LABS: INR 2.9 (0.9-1.1); Prothrombin Time 28.7 Seconds (9.0-12.0)
[2021-07-15] MEDS ORDERED: BUMETANIDE 1 MG TAB PO PRN ×2 (08:12→08:22)
[2021-07-15] MEDS: METOPROLOL SUCC 50MG EXT REL TAB PO SCH (08:37)
[2021-07-15] MEDS: ESCITALOPRAM OXALATE 20 MG TAB PO SCH (08:37)
[2021-07-15] MEDS: INSULIN ASPART PER UNIT SC SCH ×3 (08:37→17:23)
[2021-07-15] MEDS: VALSARTAN/SACUBITRIL 26/24MG TAB PO SCH (10:15)
[2021-07-15] MEDS: SPIRONOLACTONE 25 MG TAB PO SCH (10:15)
--- NOTE | 2021-07-15 13:07 | Electrocardiogram Report ---
Test Reason : Blood Pressure : / mmHG Vent. Rate : 072 BPM Atrial Rate : 097 BPM P-R Int : 000 ms QRS Dur : 126 ms QT Int : 380 ms P-R-T Axes : 000 -20 138 degrees QTc Int : 416 ms Atrial fibrillation Right bundle branch block with repolarization abnormality Possible Old Inferior infarct Abnormal ECG When compared with ECG of 21-JUN-2021 09:56, Borderline Criteria for Inferior infarct is now Present T wave inversion no longer evident in Inferior leads T wave inversion more evident in Lateral leads QT has shortened Confirmed by Dk Villela ([id number]) on 07/15/2021 1:07:05 PM Referred By: REFERRED SELF Confirmed By:Dk Villela
[2021-07-15] MEDS ORDERED: WARFARIN SOD 7.5 MG TAB PO SCH (16:00)
[2021-07-15] MEDS ORDERED: WARFARIN SOD 5 MG TAB PO ONE (16:36)
[2021-07-15] MEDS: DIGOXIN 0.125 MG TAB PO SCH (17:06)
--- NOTE | 2021-07-15 17:09 | XCELERA ---
[id number]
--- NOTE | 2021-07-15 17:33 | Discharge Summary ---
Date of Service July 15, 2021 Admission HPI Per Admitting Provider Pt is a 71 y/o F with hx of Afib on Coumadin, s/p AVR (mechanical), HTN, HFrEF (30-35%), DMII, HLD, Insomnia came into the ER with sudden vision loss. Per pt she was at work: around 1:30pm she could not see anything from her R eye (Complete grayness). She denied any associated pain, LAM, slur speech, or recent trauma. Denied any prior hx of TIA or CVA Her last INR was 1.7 therefore she took higher Coumadin dose today. 10mg at 7 pm. At bedside: per pt her vision is improving. Now she is having blurry vision (cotton ball) only on the top 1/3 of the vision field. She denied any LAM, Slur speech, CP, SOB, or extremity weakness. Per pt she had shock with iodine contrast when she had a CT due to her kidney stones. Had MRI in the past without any problem but needed sedation due to claustrophobia. Admission Exam Per Admitting Provider General:.NAD, well developed, well nourished, average body habitus HEENT:.PERRLA, EOMI,Normocephalic and atraumatic, Normal Conjunctiva, Sclera is non-icteric Lungs:.No signs of respiratory distress, CTA, no wheezing or crackles Heart:.Normal S1, S2, no murmur Abdominal:.ND, Soft, NT MSK:.No deformities of UE and LE, No leg edema neuro: CN II-XII intact, normal motor strength on b/l LE and UE Psych:.AAOx3, normal affect Principal Diagnosis Sudden vision loss on right side likely serial Left parietal acute punctate infarct. Discharge Exam GENERAL: Alert and oriented x3. NAD, on RA. HEENT: No pallor, no icterus. Pupils equal, round and reactive to light. Oral mucosa moist. NECK: No JVD, no neck masses. HEART: S1 and S2 heard. Regular rate and rhythm. No murmur, no gallop. RESPIRATORY SYSTEM: Normal AP diameter. No accessory muscle use. No wheezing, no crackles. ABDOMEN: Soft, bowel sounds present, nontender, no distention. CENTRAL NERVOUS SYSTEM: No facial droop. Speech is clear. Obeys simple commands. Moves extremities. EXTREMITIES: No edema, no erythema seen. Discharge Data Allergies Allergy/AdvReac Type Severity Reaction Status Date / Time latex Allergy Intermediate skin red Verified 07/13/21 17:49 and blistered ragweed pollen Allergy Intermediate CONGESTION Verified 07/13/21 17:49 Iodinated Contrast Media Allergy Mild Unknown Verified 07/13/21 17:49 Consultations 07/13/21 23:39 Consult Neurology Routine Ordered Studies 07/13/21 17:41 CT head/brain wo con Stat 07/13/21 20:34 MR angio head wo con Stat MR angio neck wo/w con Stat 07/14/21 12:48 MR brain wo con Routine Hospital Course (1) Sudden visual loss of right eye: (2) Permanent atrial fibrillation: (3) History of mechanical aortic valve replacement: (4) HFrEF (heart failure with reduced ejection fraction): (5) DMII (diabetes mellitus, type 2): (6) HTN (hypertension): (7) Dyslipidemia: (8) Insomnia: Pt is a 71 y/o F with hx of Afib on Coumadin, s/p AVR (mechanical), HTN, HFrEF (30-35%), DMII, HLD, Insomnia came into the ER with sudden vision loss. She was managed for the following: Sudden Vision loss on the R side likely CRAO Acute punctate infarct x left parietal lobe -Vision symptoms are improving, no temporal artery tenderness (esr 33 on exam), normal neuro exam. Patient hemodynamically stable. - Admitting CT Head, MRA Head and Neck unremarkable. 07/14 MRI with acute punctate infarct within the left parietal lobe. 07/15 echo reviewed, no interatrial shunt. - Neurology on board, appreciate recs, f/u w/ neuro as OP. Ophthal eval post discharge. - Maintain therapeutic anticoagulation. will need close f/u w/ coumadin clinic as OP. - Per patient, her Coumadin dosage has recently been changed by Coumadin clinic on Monday prior to arrival, patient to continue with the same dose. Patient made aware. Patient takes 5 mg Coumadin on Monday and 7.5 mg daily rest of the days. - c/w statin and other home meds. -Discussed with neurology, okay with discharge from their point of view. AVR with Afib: -will continue digoxin, Coumadin, metoprolol - INR is 1.7 - Extra dose of 2.5 mg coumadin today, f/u [facility] clinic closely as OP. HFrEF: -pt is euvolemic -continue aldactone, bumex, Entresto DMII: -hold metformin -continue jardiance -ISS - home meds on discharge. HTN/HLD/Insomnia: -continue home meds Diet:Cardiac and DMII DVT PPx: Coumadin Code Status: Full code Emergency Contact: Silvina Son: [phone] Patient being discharged home with following instruction at the point of discharge: Follow-up with your primary care physician within a week time. Neurology evaluated you while inpatient, follow-up with neurology as an outpatient. You will need ophthalmology evaluation as an outpatient, follow-up with an eye doctor as an outpatient as discussed at the bedside. Maintain follow up with your cardiology as Outpatient. Maintain your current anticoagulation regimen which has been recently changed by your Coumadin clinic as per outpatient site discussion. You will need to closely follow-up with your Coumadin clinic to ensure therapeutic range of your INR. Get your blood work PT/INR done in 3 days upon discharge. Take your medications as prescribed. Total Time Total Time Spent Total Time Spent (In Minutes): 35 Discharge Plan Discharge Items Patient Disposition: Home - Self-Care Reason For Visit: CANNOT SEE OUT OF RIGHT EYE Discharge Diagnosis: Sudden vision loss on right side likely serial Left parietal acute punctate infarct. Activity: Resume your previous activity Non-emergency contact: Primary Care Provider Call non-emergency contact if: you have any medication questions and your temperature is above 101 Follow-up/Referrals: Jonah Lacey, [Primary Care Provider] - Diet: Carb Consistent or DM2 and Heart Healthy Addtl Attending Provider Instructions: Follow-up with your primary care physician within a week time. Neurology evaluated you while inpatient, follow-up with neurology as an outpatient. You will need ophthalmology evaluation as an outpatient, follow-up with an eye doctor as an outpatient as discussed at the bedside. Maintain follow up with your cardiology as Outpatient. Maintain your current anticoagulation regimen which has been recently changed by your Coumadin clinic as per outpatient site discussion. You will need to closely follow-up with your Coumadin clinic to ensure therapeutic range of your INR. Get your blood work PT/INR done in 3 days upon discharge. Take your medications as prescribed. Pending Studies at Discharge: No Stand-Alone Forms: My [facility], Smoking Cessation Medications and DC Order Prescriptions: Continued atorvastatin 40 mg tablet 40 mg PO HS Qty: 90 RF: 3 spironolactone 25 mg tablet 25 mg PO DAILY Qty: 30 RF: 5 Entresto 24-26 mg tablet 1 tab PO BID Qty: 60 RF: 0 amoxicillin 500 mg capsule 2,000 mg PO DIRECTED PRN (Reason: 1 HR. PRIOR TO DENTAL APPT.) RF: 0 promethazine 12.5 mg tablet 12.5 mg PO Q6 PRN (Reason: Nausea) Qty: 30 RF: 0 escitalopram oxalate 20 mg tablet 20 mg PO DAILY RF: 0 albuterol sulfate 90 mcg/actuation Hfa Aerosol Inhaler 2 puff INHALATION DIRECTED PRN (Reason: Shortness Of Breath Or Wheezing) RF: 0 warfarin 5 mg tablet 5 mg PO DIRECTED RF: 0 metformin 850 mg tablet 850 mg PO DAILY RF: 0 Jardiance 25 mg tablet 25 mg PO DAILY RF: 0 digoxin 125 mcg (0.125 mg) tablet 125 mcg PO DAILY RF: 0 trazodone 50 mg Tablet 50 mg PO HS RF: 0 acetaminophen [Tylenol] 325 mg Tablet 650 mg PO Q6H PRN (Reason: Pain) RF: 0 phenazopyridine [Pyridium] 200 mg Tablet 200 mg PO TID PRN (Reason: Bladder Spasms) RF: 0 fluticasone propionate 50 mcg/actuation Thompson,Suspension 2 spray INTRANASAL DAILY RF: 0 loratadine 10 mg Capsule 10 mg PO DAILY PRN (Reason: Allergy Symptoms) RF: 0 metoprolol succinate [Toprol XL] 100 mg tablet extended release 24 hr 300 mg PO DAILY Qty: 90 RF: 0 bumetanide 1 mg tablet 1 mg PO DAILY Qty: 30 RF: 0 Discharge Orders: Discharge Order (Routine); Ordered 07/15/21 Ordered By: Carloz Momin Admission Data Admit Date/Time: 07/13/21 19:18 Attending Provider: Carloz Momin Admit Provider: Beck Chapa Primary Care Provider: Jonah Lacey Other Providers: Dk Villela ; Kae Clark
[2021-07-18] MEDS ORDERED: WARFARIN SOD 5 MG TAB PO SCH (16:00)
== END 2021-07-15 18:05 | disposition home or self-care (01) | DRG 65 ==
LOC: ED 13:49 → SUATTDRO 19:18 → 2N 19:18

== ENCOUNTER 2023-11-28 13:34 | Inpatient (IN) ==
[2023-11-28] MEDS: METOPROLOL TARTRATE 1 MG/ML VIAL IV STA ×2 (13:56→14:46)
[2023-11-28 14:03] LABS: Basophils # (auto) 0.06 K/uL (0.00-0.20); Basophils % (auto) 0.7 %; Eosinophils # (auto) 0.04 K/uL (0.00-0.50); Eosinophils % (auto) 0.4 %; Hematocrit (blood only) 44.9 % (37.0-47.0); Hemoglobin 14.4 g/dl (12.0-16.0); Immature Granulocytes # (auto) 0.04 K/uL (0.01-0.20); Immature Granulocytes % (auto) 0.4 %; Lymphocytes # (auto) 0.98 K/uL (1.20-3.40); Lymphocytes % (auto) 10.6 %; Mean Corpuscular Hemoglobin 28.2 pg (25.0-34.0); Mean Corpuscular Hgb Conc 32.1 g/dL (32.0-36.0); Mean Corpuscular Volume 87.9 fL (80.0-100.0); Mean Platelet Volume 9.9 fL (9.4-12.4); Monocytes # (auto) 0.47 K/uL (0.11-0.59); Monocytes % (auto) 5.1 %; Neutrophils # (auto) 7.62 K/uL (1.40-6.50); Neutrophils % (auto) 82.8 %; Platelet Count 192 K/uL (130-400); RDW Coefficient of Variation 16.4 % (11.5-14.5); RDW Standard Deviation 51.9 fL (36.4-46.3); Red Blood Count 5.11 M/uL (4.20-5.40); White Blood Count 9.21 K/ul (4.8-10.8)
--- NOTE | 2023-11-28 14:17 | XRay Report ---
XR chest 1V portable CLINICAL HISTORY: Dysrhythmia. COMPARISON STUDY: Chest radiograph December 21, 2021. FINDINGS: There are median sternotomy wires and a prosthetic cardiac valve. Moderate cardiomegaly is unchanged. There is no pneumothorax. Small bilateral pleural effusions with bibasilar opacities are p resent. Interstitial thickening is noted. IMPRESSION: Cardiomegaly with interstitial pulmonary edema, small bilateral pleural effusions and ass ociated bibasilar opacities. ACT 112: Negative or not required by law. Electronically signed by: Andrew Lujan M.D. 11/28/2023 2:16 PM
[2023-11-28 14:24] LABS: Albumin Globulin Ratio 1.4 (0.9-2); Albumin Level 4.3 gm/dl (3.4-5.0); BUN Creatinine Ratio 17.3 (10-20); Bilirubin,Total 1.8 mg/dl (0.2-1.0); Globulin 3.1 gm/dl (2.5-4.0); Magnesium 1.7 mg/dl (1.7-2.4); Potassium 3.7 mmol/L (3.5-5.1); Total Protein 7.4 gm/dl (6.0-8.3)
[2023-11-28 14:28] LABS: Troponin I High Sensitivity 11.8 pg/ml (0-14)
[2023-11-28 14:36] LABS: INR 2.3 (0.9-1.1); Partial Thromboplastin Ratio 1.2; Partial Thromboplastin Time 31 Seconds (21-31); Prothrombin Time 23.1 Seconds (9.0-12.0); Thyroid Stimulating Hormone 0.944 uIu/ml (0.300-4.500)
[2023-11-28 15:08] LABS: Adenovirus PCR Not Detected (NotDetected); Bordetella parapertussis PCR Not Detected (NotDetected); Bordetella pertussis PCR Not Detected (NotDetected); Chlamydia pneumoniae PCR Not Detected (NotDetected); Coronavirus 229E PCR Not Detected (NotDetected); Coronavirus CoV-2 (COVID19)PCR Not Detected (NotDetected); Coronavirus HKU1 PCR Not Detected (NotDetected); Coronavirus NL63 PCR Not Detected (NotDetected); Coronavirus OC43PCR Not Detected (NotDetected); Human Metapneumovirus PCR Not Detected (NotDetected); Influenza A PCR Not Detected (NotDetected); Influenza B PCR Not Detected (NotDetected); Mycoplasma pneumoniae PCR Not Detected (NotDetected); Parainfluenza Virus 1 PCR Not Detected (NotDetected); Parainfluenza Virus 2 PCR Not Detected (NotDetected); Parainfluenza Virus 3 PCR Not Detected (NotDetected); Parainfluenza Virus 4 PCR Not Detected (NotDetected); Respiratory Syncytial VirusPCR Not Detected (NotDetected); Rhinovirus/Enterovirus PCR Not Detected (NotDetected)
[2023-11-28] MEDS: MAGNESIUM SULFATE / D5W 1 GM/100 ML BAG IV ONE (15:16)
[2023-11-28] MEDS: POTASSIUM CHLORIDE CRTAB 20 MEQ TABCR PO STA (15:16)
[2023-11-28] MEDS: POTASSIUM CHLORIDE / WTR 10 MEQ/100 ML PLCT IV ONE (15:17)
--- NOTE | 2023-11-28 15:33 | Cardiology Consultation ---
Date of Consultation November 28, 2023 Assessment & Plan (1) Acute exacerbation of CHF (congestive heart failure): (2) Heart failure with mid-range ejection fraction: (3) Atrial fibrillation with RVR: (4) History of mechanical aortic valve replacement: Plan 73-year-old woman (well-known to me from outpatient cardiology encounters) with history of remote mechanical aortic valve replacement, permanent atrial fibrillation requiring high-dose negative chronotropic (metoprolol 300 mg daily plus digoxin), and chronic heart failure with midrange ejection fraction (only 1 prior hospitalization for this in 2021) who presents to the ER with evidence of heart failure and atrial fibrillation with RVR after a week of nonspecific symptoms which may have been viral in etiology. There is also question of compliance with medication, the fact that her digoxin level was undetectable (whereas it has been measurable multiple times in the past) would tend to suggest that she has missed at least some of her medications. Would recommend aggressive IV diuresis, given 2 mg IV Bumex in the ER, depending upon her response, could give an additional 2 mg IV Bumex later today and then continue with 2 mg IV Bumex once or twice daily (again depending upon her diur etic response). Given IV potassium and magnesium supplements, will need to check daily electrolytes and may need additional oral electrolyte supplements while she undergoes aggressive diuresis. Continue warfarin, adjust dose to achieve INR of 2.53.0 (higher INR goal is due to concurrent mechanical aortic valve and atrial fibrillation as well as history of cardioembolic CVA). To manage her rapid ventricular rate response to atrial fibrillation, would give additional doses of metoprolol to tartrate 5 mg IV every 4 hours PRN heart rate greater than 120 bpm, would continue her usual dose of metoprolol 300 mg daily (may not need higher dose if in fact she was noncompliant), and continue digoxin but administer 250 mcg IV loading dose and then 125 mcg daily (rather than her usual every other day) given her favorable renal function and the current need for rate control). Based on auscultation, her mechanical aortic valve is functioning appropriately, but would check echocardiogram tomorrow (after better rate control) to assess left ventricular systolic function. Will continue to follow along while she is hospitalized. Further recommendations based on response to diuresis and rate control. History of Present Illness History of Present Illness 73-year-old woman with [employer] mechanical aortic valve/aortic root replacement 2006, normal coronaries at catheterization, permanent atrial fibrillation (digoxin/metoprolol/warfarin), cardioembolic CVA 2021 (on warfarin for AVR, INR goal increased to 2.53.0), who presents to the ER today after a week of nonspecific complaints and is found to have evidence of mild congestive heart failure, atrial fibrillation with rapid ventricular response, and borderline hypokalemia/hypomagnesemia. Over the past week she has noted coryza, chills without documented fever, an occasionally productive cough (dark sputum) worse at night, fatigue, mild anorexia, progressive dyspnea on exertion, and 10 pound weight gain. She does note some chest heaviness at times, but this lasts for only a few seconds. She denies dyspnea at rest, palpitations, lightheadedness, presyncope, or syncope. No clear-cut orthopnea or PND (she sleeps in a recliner). She was in the [facility] waiting area with plans to see Mary Mack PA-C, but due to her tachycardia and apparent oxygen desaturation (SaO2 80-90%) was sent to the ER via EMS. She states that she has been taking her medications, but her son who helps take care of her questions whether this is the case. At the time of my evaluation this afternoon, she was comfortable at rest without supplemental oxygen (SaO2 94%) and denied any current symptoms. She had received 2.5 mg IV metoprolol for better rate control, IV Bumex and potassium/magnesium supplements were planned to be administered in the ER as well. Allergies Allergy/AdvReac Type Severity Reaction Status Date / Time Iodinated Contrast Media Allergy Severe Anaphylaxis Verified 11/28/23 12:53 latex Allergy Intermediate skin red Verified 11/28/23 12:53 and blistered ragweed pollen Allergy Intermediate CONGESTION Verified 11/28/23 12:53 Home Medications Medication Instructions Recorded Confirmed Type amoxicillin 500 mg capsule 2,000 mg PO DIRECTED PRN 1 HR. 09/17/18 11/28/23 History PRIOR TO DENTAL APPT. promethazine 12.5 mg tablet 12.5 mg PO Q6 PRN Nausea #30 tabs 09/17/18 11/28/23 History acetaminophen 325 mg tablet 650 mg PO Q6H PRN Pain 06/18/21 11/28/23 History (Tylenol) loratadine 10 mg capsule 10 mg PO DAILY PRN Allergy Symptoms 06/18/21 11/28/23 History phenazopyridine 200 mg tablet 200 mg PO TID PRN Bladder Spasms 06/18/21 11/28/23 History (Pyridium) trazodone 50 mg tablet 50 mg PO HS 06/18/21 11/28/23 History metoprolol succinate 100 mg 300 mg (3 x 100 mg) PO DAILY #90 06/21/21 11/28/23 Rx tablet,extended release 24 hr tabs (Toprol XL) albuterol sulfate 90 mcg/actuation 2 puff inhalation DIRECTED PRN 07/13/21 11/28/23 History aerosol inhaler Shortness Of Breath Or Wheezing fluticasone propionate 50 2 spray intranasal DAILY PRN 07/21/21 11/28/23 History mcg/actuation nasal Congestion spray,suspension bumetanide 1 mg tablet 2 mg (2 x 1 mg) PO DAILY edema, 05/05/22 11/28/23 Rx weight gain, GAYTAN #60 tabs sacubitril 24 mg-valsartan 26 mg 1 tab PO BID #180 tabs 10/18/22 11/28/23 Rx tablet (Entresto) digoxin 125 mcg (0.125 mg) tablet 125 mcg PO Q OTHER DAY #90 tabs 10/28/22 11/28/23 Rx warfarin 5 mg tablet See Rx Instructions .Route .COMPLEX 11/25/22 11/28/23 History escitalopram oxalate 20 mg tablet 20 mg PO DAILY #90 tabs 01/30/23 11/28/23 Rx atorvastatin 40 mg tablet 40 mg PO HS #90 tabs 05/09/23 11/28/23 Rx empagliflozin 10 mg tablet 25 mg PO DAILY 06/08/23 11/28/23 History (Jardiance) glipizide 5 mg tablet 10 mg PO BID 06/08/23 11/28/23 History Patient History Medical History (Updated 11/28/23 @ 15:32 by Dk Villela MD) Vasovagal syncope (2022) Acute on chronic HFrEF (heart failure with reduced ejection fraction) Uncontrolled diabetes mellitus Acute exacerbation of CHF (congestive heart failure) (06/2021) Atrial fibrillation with RVR (06/2021) Permanent atrial fibrillation History of nephrolithiasis Allergic rhinitis Ureteral stricture Anticoagulant long-term use Anxiety Arthritis Cardiomyopathy, nonischemic Chronic diastolic congestive heart failure HTN (hypertension) Surgical History History of section S/P tonsillectomy History of oophorectomy, unilateral Family History Brother Heart disease Diabetes Prostate cancer Father Heart disease Diabetes Prostate cancer Mother Hypertension Social History Smoking Status: Never smoker Hx Alcohol Use: Yes Alcohol type: wine Hx Substance Use: No Preferred Language: [place] Citizen Communication Ability: Effective Dentofacial Orthopedics Dentist Required: No Beliefs That Will Affect Care: None marital status: Current Living Situation: Family How many Children do You have: 1 Feels Safe at Home: Yes Assistive Devices: Glasses Physical Exam Physical Exam: Adult white female appears anxious but not acutely distressed. Afebrile. BP 136/92 mmHg. Pulse 130 bpm and irregular. Respirations 28 but unlabored. Skin: no ecchymoses or lesions. HEENT: unremarkable. Neck: JVP up to the angle of the jaw at 90 degrees. No carotid bruits or transmitted murmur. Lungs: Bibasilar crackles, no obvious wheezing. No accessory muscle use. Cardiac: Irregular/tachycardic rhythm, 2/6 basal systolic ejection murmur radiating to the suprasternal notch, crisp prosthetic aortic closure sound. No diastolic murmur or gallop. Abdomen benign. Extremities: No ankle edema, pulses brisk, good capillary refill. Neurologic: normal affect and conversation, grossly nonfocal. Results & Data Vital Signs (Past 12 Hours) Vital Signs Temp Pulse Pulse Resp BP BP Pulse Ox 11/28/23 14:46 129 H 136/92 11/28/23 14:09 142 H 11/28/23 13:48 97.7 F 137 H 28 H 159/108 H 92 11/28/23 13:37 97.7 F 159 H 30 H 159/100 H 94 O2 Del Method 11/28/23 14:46 11/28/23 14:09 11/28/23 13:48 Room Air 11/28/23 13:37 Room Air Laboratory Results Normal CBC. INR 2.3. Potassium 3.7, magnesium 1.7, BUN 14, creatinine 0.81. Troponin 11.8. Digoxin level less than 0.3. BioFire was negative for specific viral infection. Diagnostic Findings ECG showed atrial fibrillation with ventricular rate 155 bpm, right bundle branch block, nonspecific ST-T wave abnormalities. Chest x-ray showed cardiomegaly with interstitial pulmonary edema and small bilateral pleural effusions and associated bibasilar opacities. Echocardiogram 2021 showed EF 45 to 50%, moderate global hypokinesis, mildly dilated RV with mildly reduced systolic function, appropriately functioning mechanical aortic valve, mild to moderate mitral regurgitation. Compared with study earlier in 2021, mitral regurgitation appears less severe, otherwise no ch sheila. PG Care Time/CCT Total # of Minutes Spent Total Time Spent with Patient: Total time spent is greater than 50% in coordination of care (as documented) at patient's floor/unit and/or counseling patient: Coding Level of Care Code 42631 IN/OBS CONSULT LVL 4,60M Diagnoses Acute exacerbation of CHF (congestive heart failure) I50.33 Heart failure type: diastolic Heart failure with mid-range ejection fraction I50.22 Atrial fibrillation with RVR I48.91 History of mechanical aortic valve replacement Z95.2 (1) Acute exacerbation of CHF (congestive heart failure) Heart failure type: diastolic Qualified Code(s): I50.33 - Acute on chronic diastolic (congestive) heart failure
[2023-11-28] MEDS: BUMETANIDE 2 MG in SYRINGE 0 ML IV ONE (16:01)
--- NOTE | 2023-11-28 16:31 | Electrocardiogram Report ---
Test Reason : Blood Pressure : */* mmHG Vent. Rate : 155 BPM Atrial Rate : * BPM P-R Int : * ms QRS Dur : 118 ms QT Int : 350 ms P-R-T Axes : * 137 -71 degrees QTcB Int : 562 ms Atrial fibrillation with rapid ventricular response with premature ventricular or aberrantly conducte d complexes Low voltage QRS Right bundle branch block Nonspecific ST and T wave abnormality Abnormal ECG When compared with ECG of 28-Nov-2023 13:12, No significant change was found Confirmed by Dk Villela ([id number]) on 11/28/2023 4:31:31 PM Referred By: Confirmed By: Dk Villela
[2023-11-28] MEDS ORDERED: ALBUTEROL HFA 8 GM INHALER INH PRN (16:41)
[2023-11-28] MEDS ORDERED: PHENAZOPYRIDINE HCL 200 MG TAB PO PRN (16:41)
[2023-11-28] MEDS ORDERED: PROMETHAZINE HCL 25 MG TAB PO PRN (16:41)
[2023-11-28] MEDS ORDERED: FLUTICASONE PROPIONATE NA SPR 16 GM BTL PRN (16:41)
[2023-11-28] MEDS ORDERED: ALBUT/IPRATROP 3MG/0.5MG NEB 3 ML VIAL NEB PRN (16:44)
[2023-11-28] MEDS ORDERED: DIGOXIN 0.125 MG TAB PO SCH (16:45)
--- NOTE | 2023-11-28 17:16 | History & Physical Report ---
Date of Service November 28, 2023 Assessment & Plan (1) Atrial fibrillation with rapid ventricular response: Plan: Patient has been given multiple doses of IV metoprolol in the ER. Her heart rate has improved. May need to increase her daily dose depending on response Will give 1 dose of digoxin IV as a loading dose and change her oral dosing from 0.125 mg every other day to daily Cardiology consulted, appreciate consult (2) Acute on chronic heart failure with preserved ejection fraction: Plan: Continue IV Bumex daily to twice daily depending on diuretic response Follow intake and output Daily weights Follow electrolytes, keep magnesium level above 2 and potassium above 4 Check echocardiogram (3) Permanent atrial fibrillation: Plan: Continue warfarin Daily PT/INR (4) Long-term (current) use of anticoagulants, INR goal 2.5-3.5: Plan: As above (5) History of mechanical aortic valve replacement: Plan: Check echocardiogram (6) Lab test negative for COVID-19 virus: Plan: Patient's viral panel including COVID testing is negative. Symptomatic treatment for URI although it seems she is at the very tail end (7) DMII (diabetes mellitus, type 2): Plan: Will hold oral diabetic medications Continue blood sugars at before meals and at bedtime Insulin coverage (8) Depression: Plan: Continue mgcm-lte-pvyrraq antidepressant as indicated (9) Dyslipidemia: Plan: Continue the statin (10) URI (upper respiratory infection): Plan: Symptomatic treatment History of Present Illness Chief Complaint: Shortness of breath Primary Care Provider: Jonah Lacey Alexsandra Wolf is a 73-year-old female with a prior history of mechanical aortic valve replacement, permanent atrial fibrillation requiring high-dose metoprolol at 300 mg daily plus digoxin 0.125 mg every other day and chronic heart failure with borderline ejection fraction who presents to the ER with evidence of acute on chronic heart failure and atrial fibrillation with RVR. She was seen in the cardiology clinic today and was sent over to the emergency room after she was found to be in atrial fibrillation with a rapid ventricular rate in the 140s. She notes that she had a URI last week with a low-grade fever and some chills. She had some nasal congestion and a dry cough. She was only taking Mucinex for this. She does have a history of allergic rhinitis. There was a question of compliance with medication given the fact that her digoxin level was undetectable. As far she knows she has been taking her medication on a regular basis although she does admit sometimes she forgets a dose here and there. In the ED the patient was given several IV doses of metoprolol. She was given IV Bumex. She has been seen by cardiology and the case has been discussed with Dr. Villela. Patient is admitted for further diuresis and rate control. Her medications were reviewed. She states she is not taking Jardiance or Entresto because of the extreme cost. All the other medications are confirmed. Allergies Allergy/AdvReac Type Severity Reaction Status Date / Time Iodinated Contrast Media Allergy Severe Anaphylaxis Verified 11/28/23 12:53 latex Allergy Intermediate skin red Verified 11/28/23 12:53 and blistered ragweed pollen Allergy Intermediate CONGESTION Verified 11/28/23 12:53 Home Medications Medication Instructions Recorded Confirmed Type amoxicillin 500 mg capsule 2,000 mg PO DIRECTED PRN 1 HR. 09/17/18 11/28/23 History PRIOR TO DENTAL APPT. promethazine 12.5 mg tablet 12.5 mg PO Q6 PRN Nausea #30 tabs 09/17/18 11/28/23 History acetaminophen 325 mg tablet 650 mg PO Q6H PRN Pain 06/18/21 11/28/23 History (Tylenol) loratadine 10 mg capsule 10 mg PO DAILY PRN Allergy Symptoms 06/18/21 11/28/23 History phenazopyridine 200 mg tablet 200 mg PO TID PRN Bladder Spasms 06/18/21 11/28/23 History (Pyridium) trazodone 50 mg tablet 50 mg PO HS 06/18/21 11/28/23 History metoprolol succinate 100 mg 300 mg (3 x 100 mg) PO DAILY #90 06/21/21 11/28/23 Rx tablet,extended release 24 hr tabs (Toprol XL) albuterol sulfate 90 mcg/actuation 2 puff inhalation DIRECTED PRN 07/13/21 11/28/23 History aerosol inhaler Shortness Of Breath Or Wheezing fluticasone propionate 50 2 spray intranasal DAILY PRN 07/21/21 11/28/23 History mcg/actuation nasal Congestion spray,suspension bumetanide 1 mg tablet 2 mg (2 x 1 mg) PO DAILY edema, 05/05/22 11/28/23 Rx weight gain, GAYTAN #60 tabs sacubitril 24 mg-valsartan 26 mg 1 tab PO BID #180 tabs 10/18/22 11/28/23 Rx tablet (Entresto) digoxin 125 mcg (0.125 mg) tablet 125 mcg PO Q OTHER DAY #90 tabs 10/28/22 11/28/23 Rx warfarin 5 mg tablet See Rx Instructions .Route .COMPLEX 11/25/22 11/28/23 History escitalopram oxalate 20 mg tablet 20 mg PO DAILY #90 tabs 01/30/23 11/28/23 Rx atorvastatin 40 mg tablet 40 mg PO HS #90 tabs 05/09/23 11/28/23 Rx empagliflozin 10 mg tablet 25 mg PO DAILY 06/08/23 11/28/23 History (Jardiance) glipizide 5 mg tablet 10 mg PO BID 06/08/23 11/28/23 History Past Med/Surg History Problem List (Updated 11/28/23 @ 17:30 by Josue Rashid DO) URI (upper respiratory infection) Acute on chronic heart failure with preserved ejection fraction Atrial fibrillation with rapid ventricular response Diabetes mellitus type 2, uncontrolled Permanent atrial fibrillation Heart failure with mid-range ejection fraction Long-term (current) use of anticoagulants, INR goal 2.5-3.5 History of mechanical aortic valve replacement (2006) Lab test negative for COVID-19 virus (Acute) Insomnia DMII (diabetes mellitus, type 2) Sudden visual loss of right eye (Acute) Depression Dyslipidemia Obesity Medical History (Updated 11/28/23 @ 17:30 by Josue Rashid DO) Vasovagal syncope (2022) Acute on chronic HFrEF (heart failure with reduced ejection fraction) Uncontrolled diabetes mellitus Acute exacerbation of CHF (congestive heart failure) (06/2021) Atrial fibrillation with RVR (06/2021) Permanent atrial fibrillation History of nephrolithiasis Allergic rhinitis Ureteral stricture Anticoagulant long-term use Anxiety Arthritis Cardiomyopathy, nonischemic Chronic diastolic congestive heart failure HTN (hypertension) Surgical History History of section S/P tonsillectomy History of oophorectomy, unilateral Family History Brother Heart disease Diabetes Prostate cancer Father Heart disease Diabetes Prostate cancer Mother Hypertension Social History Smoking Status: Never smoker Hx Alcohol Use: Yes Alcohol type: wine Hx Substance Use: No Preferred Language: Lao Communication Ability: Effective 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: No Beliefs That Will Affect Care: None marital status: Current Living Situation: Family How many Children do You have: 1 Feels Safe at Home: Yes Assistive Devices: Glasses Review of Systems Review of Systems: Constitutional- no fever; no weight loss but some weight gain Eyes- no acute visual changes ENT- no sinus drainage; no pharyngitis Pulmonary-dry cough, no wheezing, she has shortness of breath Cardiac- no chest pain, no perceptible palpitations, no orthopnea, no dependent edema GI- no nausea, no vomiting, no diarrhea, no melena, no hematochezia - no dysuria, no hematuria Musculoskeletal- no arthralgias, no myalgias Derm- no rashes, no new skin lesions, no changing skin lesions Hematologic- no unusual bruising, no unusual bleeding Lymphatics- no adenopathy Endocrine- no polyuria or polydipsia; no heat or cold intolerance Neuro- no headaches, no focal neurologic symptoms Psych-she has a history of depression Physical Exam Physical Exam: General- adult elderly female seen at bedside in the emergency room. Dr. Owens was present as well. Her son is present. Head- atraumatic Eyes- PERRL, EOMI, anicteric ENT- oropharynx clear Neck- supple, mild JVD, no adenopathy, no thyromegaly; Lungs-diminished breath sounds in the bases Heart-irregularly irregular at 104 bpm currently; Abdomen- normal bowel sounds, soft, nontender, no masses or hepatosplenomegaly Extremities- no pretibial edema, no calf tenderness; peripheral pulses intact Neuro- alert, oriented x 3; PERRL, EOMI; no facial palsy; no dysarthria; motor 5/5 bilaterally; Skin- warm & dry Results & Data Results & Data Vital Signs (Past 12 Hours) Vital Signs Temp Pulse Pulse Resp BP BP Pulse Ox 11/28/23 16:15 113 H 11/28/23 15:30 102 H 20 148/112 H 92 11/28/23 14:46 129 H 136/92 11/28/23 14:09 142 H 11/28/23 13:48 36.5 C 137 H 28 H 159/108 H 92 11/28/23 13:37 36.5 C 159 H 30 H 159/100 H 94 O2 Del Method 11/28/23 16:15 11/28/23 15:30 11/28/23 14:46 11/28/23 14:09 11/28/23 13:48 Room Air 11/28/23 13:37 Room Air Diagnostic Findings Laboratory Results WBC 9.21 K/ul (4.8-10.8) 11/28/23 13:45 RBC 5.11 M/uL (4.20-5.40) 11/28/23 13:45 Hgb 14.4 g/dl (12.0-16.0) 11/28/23 13:45 Hct 44.9 % (37.0-47.0) 11/28/23 13:45 MCV 87.9 fL (80.0-100.0) 11/28/23 13:45 MCH 28.2 pg (25.0-34.0) 11/28/23 13:45 MCHC 32.1 g/dL (32.0-36.0) 11/28/23 13:45 RDW Std Deviation 51.9 fL (36.4-46.3) H 11/28/23 13:45 RDW Coeff of Angelic 16.4 % (11.5-14.5) H 11/28/23 13:45 Plt Count 192 K/uL (130-400) 11/28/23 13:45 MPV 9.9 fL (9.4-12.4) 11/28/23 13:45 Immature Gran % (Auto) 0.4 % 11/28/23 13:45 Neut % (Auto) 82.8 % 11/28/23 13:45 Lymph % (Auto) 10.6 % 11/28/23 13:45 Thomas % (Auto) 5.1 % 11/28/23 13:45 Eos % (Auto) 0.4 % 11/28/23 13:45 Baso % (Auto) 0.7 % 11/28/23 13:45 Neut # (Auto) 7.62 K/uL (1.40-6.50) H 11/28/23 13:45 Lymph # (Auto) 0.98 K/uL (1.20-3.40) L 11/28/23 13:45 Thomas # (Auto) 0.47 K/uL (0.11-0.59) 11/28/23 13:45 Eos # (Auto) 0.04 K/uL (0.00-0.50) 11/28/23 13:45 Baso # (Auto) 0.06 K/uL (0.00-0.20) 11/28/23 13:45 Immature Gran # (Auto) 0.04 K/uL (0.01-0.20) 11/28/23 13:45 PT 23.1 Seconds (9.0-12.0) H 11/28/23 13:45 INR 2.3 (0.9-1.1) H 11/28/23 13:45 APTT 31 Seconds (21-31) 11/28/23 13:45 PTT Ratio 1.2 11/28/23 13:45 Sodium 141 mmol/L (136-145) 11/28/23 13:45 Potassium 3.7 mmol/L (3.5-5.1) 11/28/23 13:45 Chloride 107 mmol/L (98-107) 11/28/23 13:45 Carbon Dioxide 24 mmol/L (21-32) 11/28/23 13:45 Anion Gap 10 (3-11) 11/28/23 13:45 BUN 14 mg/dl (6-23) 11/28/23 13:45 Creatinine 0.81 mg/dl (0.6-1.2) 11/28/23 13:45 Est Cr Clr Drug Dosing 62.0 ml/min 11/28/23 13:45 eGFR 75.65 11/28/23 13:45 BUN/Creatinine Ratio 17.3 (10-20) 11/28/23 13:45 Glucose 204 mg/dl (70-99(Fasting)) H 11/28/23 13:45 Calcium 9.0 mg/dl (8.6-10.3) 11/28/23 13:45 Magnesium 1.7 mg/dl (1.7-2.4) 11/28/23 13:45 Total Bilirubin 1.8 mg/dl (0.2-1.0) H 11/28/23 13:45 AST 22 U/L (13-39) 11/28/23 13:45 ALT 17 U/L (7-52) 11/28/23 13:45 Alkaline Phosphatase 105 U/L (34-104) H 11/28/23 13:45 Troponin I High Sens 11.8 pg/ml (0-14) 11/28/23 13:45 B-Natriuretic Peptide 549 pg/ml (0-100) H 11/28/23 16:11 Total Protein 7.4 gm/dl (6.0-8.3) 11/28/23 13:45 Albumin 4.3 gm/dl (3.4-5.0) 11/28/23 13:45 Globulin 3.1 gm/dl (2.5-4.0) 11/28/23 13:45 Albumin/Globulin Ratio 1.4 (0.9-2) 11/28/23 13:45 TSH 0.944 uIu/ml (0.300-4.500) 11/28/23 13:45 Digoxin < 0.3 ng/ml (0.8-2.0) L 11/28/23 13:45 Adenovirus (PCR) Not Detected (NotDetected) 11/28/23 13:53 B. pertussis DNA (PCR) Not Detected (NotDetected) 11/28/23 13:53 B.parapertussis DNA PCR Not Detected (NotDetected) 11/28/23 13:53 C. pneumoniae DNA (PCR) Not Detected (NotDetected) 11/28/23 13:53 Coronavirus OC43 (PCR) Not Detected (NotDetected) 11/28/23 13:53 Coronavirus HKU1 (PCR) Not Detected (NotDetected) 11/28/23 13:53 Coronavirus 229E (PCR) Not Detected (NotDetected) 11/28/23 13:53 SARS-CoV-2 (PCR) Not Detected (NotDetected) 11/28/23 13:53 Coronavirus NL63 (PCR) Not Detected (NotDetected) 11/28/23 13:53 Human Metapneumovir PCR Not Detected (NotDetected) 11/28/23 13:53 Influenza Type A (PCR) Not Detected (NotDetected) 11/28/23 13:53 Influenza Type B (PCR) Not Detected (NotDetected) 11/28/23 13:53 M. pneumoniae (PCR) Not Detected (NotDetected) 11/28/23 13:53 Parainfluenza 1 (PCR) Not Detected (NotDetected) 11/28/23 13:53 Parainfluenza 2 (PCR) Not Detected (NotDetected) 11/28/23 13:53 Parainfluenza 3 (PCR) Not Detected (NotDetected) 11/28/23 13:53 Parainfluenza 4 (PCR) Not Detected (NotDetected) 11/28/23 13:53 RSV (PCR) Not Detected (NotDetected) 11/28/23 13:53 Entero/Rhino (PCR) Not Detected (NotDetected) 11/28/23 13:53 Impressions Chest X-Ray 11/28/23 13:49 XR chest 1V portable CLINICAL HISTORY: Dysrhythmia. COMPARISON STUDY: Chest radiograph December 21, 2021. FINDINGS: There are median sternotomy wires and a prosthetic cardiac valve. Moderate cardiomegaly is unchanged. There is no pneumothorax. Small bilateral pleural effusions with bibasilar opacities are present. Interstitial thickening is noted. IMPRESSION: Cardiomegaly with interstitial pulmonary edema, small bilateral pleural effusions and associated bibasilar opacities. ACT 112: Negative or not required by law. Electronically signed by: Andrew Lujan M.D. 11/28/2023 2:16 PM Code Status & VTE Plan Code Status Full Code VTE Prophylaxis Plan VTE Prophylaxis will be ordered: No Reason for no VTE drug order: Contraindicated (Pt is on Warfarin)
[2023-11-28] MEDS ORDERED: DEXTROSE 50% 50 ML SYRINGE IV PRN ×2 (18:06)
[2023-11-28] MEDS ORDERED: ALUMINUM/MAGNESIUM SUSP 30 ML UDC PO PRN (18:06)
[2023-11-28] MEDS ORDERED: POLYETHYLENE (MIRALAX) 17 GM PACK PO PRN (18:06)
[2023-11-28] MEDS ORDERED: GLUCOSE 40% GEL 15 GM TUBE PO PRN ×2 (18:06)
[2023-11-28] MEDS ORDERED: GLUCAGON FOR INJ 1 MG VIAL SQ PRN ×2 (18:06)
[2023-11-28] MEDS ORDERED: CARBOHYDRATES FOR HYPOGLYCEMIA PO PRN ×2 (18:06)
[2023-11-28] MEDS ORDERED: ACETAMINOPHEN 325 MG TAB PO PRN (18:06)
[2023-11-28] MEDS ORDERED: GLUCOSE 10 TAB/TUBE PO PRN ×2 (18:06)
[2023-11-28] MEDS ORDERED: ONDANSETRON INJ 2 MG/ML 2 ML VIAL IV PRN (18:06)
[2023-11-28] MEDS ORDERED: LORATADINE 10 MG TAB PO PRN (18:17)
[2023-11-28] MEDS: WARFARIN SOD 5 MG TAB PO SCH (18:50)
[2023-11-28 19:24] LABS: INR 2.2 (0.9-1.1); Prothrombin Time 22.6 Seconds (9.0-12.0)
[2023-11-28] MEDS: ATORVASTATIN 40 MG TAB PO SCH (20:22)
[2023-11-28] MEDS: INSULIN ASPART PER UNIT CHARGE SC SCH (21:03)
--- NOTE | 2023-11-28 22:00 | Emergency Department Note ---
Impression & Plan Atrial fibrillation with rapid ventricular response ED Provider Note NAME: TSERING CONTRERAS AGE: 73 SEX: Female INFORMANT: Patient ED PROVIDER(S): Josue Singh MD CHIEF COMPLAINT: Rapid A-fib PLAN: Disposition: Admitted Outpatient prescription management: none Referral: None MEDICAL DECISION MAKING: Patient presented from the cardiology office due to rapid atrial fibrillation. She was evaluated. She was given 2 doses of IV metoprolol and her rate was much improved. She still borderline tachycardic. Patient does have permanent A-fib. INR is adequate. Her CBC and chemistry panel was unremarkable. Cardiac troponin negative. Her potassium and magnesium are within normal limits but slightly on the lower side. Patient was given IV potassium and magnesium. I did discuss her case with Dr. Villela of cardiology who evaluated patient in the ER. He was concerned that she may have some slight volume overload and did ask for her to get a dose of IV Bumex. This was administered. Patient will be admitted by the hospitalist service. Consultation was made with the [facility] hospitalist service. Patient was evaluated in the ER and admitted for further management. Care/management discussed with: convention services manager Level of care consideration(s): After review of the information above and other included data, I feel the patient requires escalation of care to admission Triage Nursing notes: reviewed and agree them. Vital Signs: reviewed and remarkable for tachycardia Additional History obtained from: none Chronic Medical/Social Conditions affecting care: A-fib, chronic anticoagulation Prior/ Outside/ External records reviewed: none Differential Diagnosis: Premature contractions, electrolyte abnormality, cardiac dysrhythmia, thyroid dysfunction, pulmonary embolism, infection, gastrointestinal, as well as other pathologies. Diagnostics, independently interpreted by me: ECG: Twelve-lead ECG reveals atrial fibrillation with RVR at 140 bpm. Right bundle branch block and inferior lateral T wave inversions. Cardiac Monitoring: Cardiac monitoring ordered by me: The patient was placed on continuous cardiac monitoring and observed. It revealed a atrial fibrillation at 116 bpm. Medical decision rules: none Imaging studies: Chest x-ray. Findings: A chest x-ray was performed and revealed mild cardiomegaly and interstitial edema. HPI: 73 year old Female arrives for evaluation of rapid atrial fibrillation. Patient went to her cardiology appointment today and was found to have A-fib with RVR. She was sent to the emergency department for management. Patient states that she had about a 10 pound weight gain since her last cardiology visit a few months ago. She feels generally weak. She is also noted URI symptoms for the last week. She was seen at [facility] and states COVID was negative. Pt denies LOC, headache, fevers, chills, diaphoresis, visual changes, neck pain, chest pain, nausea, vomiting, abdominal pain, back pain, melena, hematochezia, urinary symptoms, numbness, focal weakness, lymphadenopathy, rash, or other complaints.. PAST MEDICAL HISTORY: See Below, A-fib, anticoagulation PAST SURGICAL HISTORY: See Below, valve replacement SOCIAL HISTORY: See Below, retired HOME MEDICATIONS: See Below ALLERGIES: See Below VITALS: See Below PHYSICAL EXAMINATION: GENERAL: Awake, alert, concerned-appearing, in no distress HENT: Normocephalic, atraumatic. Oropharynx unremarkable. EYES: Normal conjunctiva. Sclera non-icteric. NECK: Inspection normal. Non-tender. Supple. No nuchal rigidity. FROM. No masses. RESPIRATORY: Clear to auscultation. No wheezes. No rales. Normal respiratory effort. CARDIAC: Extremely tachycardic rate. Irregular rhythm. Mechanical valve sound present. No rubs. Extremities warm and well perfused. Pulses equal. Moderate JVD. GI: Soft, non-distended. No tenderness to palpation. No rebound or guarding. No masses. RECTAL: Deferred. MUSCULOSKELETAL: Atraumatic. Chest examination reveals no tenderness. The back is symmetrical on inspection without obvious abnormality. There is no CVA tenderness to palpation. No joint edema. LOWER EXTREMITIES: Calves are equal size bilaterally and non-tender. No edema. No discoloration. NEURO: Normal sensorium. No sensory or motor deficits noted. SKIN: No rash or jaundice noted. PROCEDURES: none CRITICAL CARE: I have personally spent 40 minutes of critical care time in the direct management of this patient. This includes bedside care, interpretation of diagnostic studies, and testing, discussion with consultants, patient, and family members, and other required patient management activities. These minutes are in excess of all separately billable procedures. OBSERVATION NOTE: none Past Med/Surg History Problem List (Updated 11/28/23 @ 22:00 by Josue Singh MD) Atrial fibrillation with rapid ventricular response (Acute) URI (upper respiratory infection) Acute on chronic heart failure with preserved ejection fraction Atrial fibrillation with rapid ventricular response Diabetes mellitus type 2, uncontrolled Permanent atrial fibrillation Heart failure with mid-range ejection fraction Long-term (current) use of anticoagulants, INR goal 2.5-3.5 History of mechanical aortic valve replacement (2006) Lab test negative for COVID-19 virus (Acute) Insomnia DMII (diabetes mellitus, type 2) Sudden visual loss of right eye (Acute) Depression Dyslipidemia Obesity Medical History (Updated 11/28/23 @ 22:00 by Josue Singh MD) Vasovagal syncope (2022) Acute on chronic HFrEF (heart failure with reduced ejection fraction) Uncontrolled diabetes mellitus Acute exacerbation of CHF (congestive heart failure) (06/2021) Atrial fibrillation with RVR (06/2021) Permanent atrial fibrillation History of nephrolithiasis Allergic rhinitis Ureteral stricture Anticoagulant long-term use Anxiety Arthritis Cardiomyopathy, nonischemic Chronic diastolic congestive heart failure HTN (hypertension) Surgical History History of section S/P tonsillectomy History of oophorectomy, unilateral Family History Brother Heart disease Diabetes Prostate cancer Father Heart disease Diabetes Prostate cancer Mother Hypertension Social History Smoking Status: Never smoker Second Hand Exposure: No; Do You Dip or Chew Tobacco: No; Tobacco Cessation Education Requested by Patient: No Hx Alcohol Use: No Hx Substance Use: No Preferred Language: Chinese Communication Ability: Effective Manager Culinary Required: No Beliefs That Will Affect Care: None marital status: Current Living Situation: Alone How many Children do You have: 1 Other Information That Helps Us Care for You: No Feels Safe at Home: Yes Safety Concerns: Feels Safe At This Time Assistive Devices: None Allergies Allergies Allergy/AdvReac Type Severity Reaction Status Date / Time Iodinated Contrast Media Allergy Severe Anaphylaxis Verified 11/28/23 12:53 latex Allergy Intermediate skin red Verified 11/28/23 12:53 and blistered ragweed pollen Allergy Intermediate CONGESTION Verified 11/28/23 12:53 Home Meds Home Medications Medication Instructions Recorded Confirmed amoxicillin 500 mg capsule 2,000 mg PO DIRECTED PRN 1 HR. 09/17/18 11/28/23 PRIOR TO DENTAL APPT. promethazine 12.5 mg tablet 12.5 mg PO Q6 PRN Nausea #30 tabs 09/17/18 11/28/23 acetaminophen 325 mg tablet 650 mg PO Q6H PRN Pain 06/18/21 11/28/23 (Tylenol) loratadine 10 mg capsule 10 mg PO DAILY PRN Allergy Symptoms 06/18/21 11/28/23 phenazopyridine 200 mg tablet 200 mg PO TID PRN Bladder Spasms 06/18/21 11/28/23 (Pyridium) trazodone 50 mg tablet 50 mg PO HS 06/18/21 11/28/23 albuterol sulfate 90 mcg/actuation 2 puff inhalation DIRECTED PRN 07/13/21 11/28/23 aerosol inhaler Shortness Of Breath Or Wheezing fluticasone propionate 50 2 spray intranasal DAILY PRN 07/21/21 11/28/23 mcg/actuation nasal Congestion spray,suspension warfarin 5 mg tablet See Rx Instructions .Route .COMPLEX 11/25/22 11/28/23 empagliflozin 10 mg tablet 25 mg PO DAILY 06/08/23 11/28/23 (Jardiance) glipizide 5 mg tablet 10 mg PO BID 06/08/23 11/28/23 Previous Rx's Medication Instructions Recorded metoprolol succinate 100 mg 300 mg (3 x 100 mg) PO DAILY #90 06/21/21 tablet,extended release 24 hr tabs (Toprol XL) bumetanide 1 mg tablet 2 mg (2 x 1 mg) PO DAILY edema, 05/05/22 weight gain, GAYTAN #60 tabs sacubitril 24 mg-valsartan 26 mg 1 tab PO BID #180 tabs 10/18/22 tablet (Entresto) digoxin 125 mcg (0.125 mg) tablet 125 mcg PO Q OTHER DAY #90 tabs 10/28/22 escitalopram oxalate 20 mg tablet 20 mg PO DAILY #90 tabs 01/30/23 atorvastatin 40 mg tablet 40 mg PO HS #90 tabs 05/09/23 Results & Data (ED) Vital Signs Vital Signs - 24 hr 11/28/23 13:37 11/28/23 13:41 11/28/23 13:48 Temperature 36.5 C 36.5 C Temperature Source Oral Oral Pulse Rate 159 H Pulse Rate [Finger] 137 H Pulse Rate from SpO2 Sensor Pulse Rhythm Regular Pulse Rhythm [Finger] Regular Pulse Strength Normal Pulse Strength [Finger] Normal Respiratory Rate 30 H 28 H Respiratory Effort / Characteristics Non-Labored Spontaneous Non-Labored Spontaneous Respiratory Depth Normal Normal Blood Pressure 159/100 H 159/108 H Blood Pressure [Right Arm] 159/108 H Blood Pressure Mean 119 114 Blood Pressure Mean [Right Arm] 125 Blood Pressure Position [Right Arm] Sitting Pulse Oximetry 94 92 Oxygen Delivery Method Room Air Room Air Sepsis Recent Fever Within 48 Hours No Sepsis New/Unexplained Change in Mental Status N/A Sepsis Action Taken by Nursing No Action Required 11/28/23 13:48 11/28/23 14:00 11/28/23 14:09 Temperature Temperature Source Pulse Rate 148 H 132 H 142 H Pulse Rate [Finger] Pulse Rate from SpO2 Sensor 159 H 142 H Pulse Rhythm Pulse Rhythm [Finger] Pulse Strength Pulse Strength [Finger] Respiratory Rate 26 H 27 H Respiratory Effort / Characteristics Respiratory Depth Blood Pressure Blood Pressure [Right Arm] Blood Pressure Mean Blood Pressure Mean [Right Arm] Blood Pressure Position [Right Arm] Pulse Oximetry 93 92 Oxygen Delivery Method Sepsis Recent Fever Within 48 Hours Sepsis New/Unexplained Change in Mental Status Sepsis Action Taken by Nursing 11/28/23 14:42 11/28/23 14:46 11/28/23 14:46 Temperature Temperature Source Pulse Rate 126 H 129 H Pulse Rate [Finger] Pulse Rate from SpO2 Sensor Pulse Rhythm Pulse Rhythm [Finger] Pulse Strength Pulse Strength [Finger] Respiratory Rate 30 H Respiratory Effort / Characteristics Respiratory Depth Blood Pressure 136/92 136/92 Blood Pressure [Right Arm] Blood Pressure Mean 115 Blood Pressure Mean [Right Arm] Blood Pressure Position [Right Arm] Pulse Oximetry Oxygen Delivery Method Sepsis Recent Fever Within 48 Hours Sepsis New/Unexplained Change in Mental Status Sepsis Action Taken by Nursing 11/28/23 14:46 11/28/23 14:46 11/28/23 14:46 Temperature Temperature Source Pulse Rate Pulse Rate [Finger] Pulse Rate from SpO2 Sensor Pulse Rhythm Pulse Rhythm [Finger] Pulse Strength Pulse Strength [Finger] Respiratory Rate Respiratory Effort / Characteristics Respiratory Depth Blood Pressure 136/92 136/92 136/92 Blood Pressure [Right Arm] Blood Pressure Mean 115 115 115 Blood Pressure Mean [Right Arm] Blood Pressure Position [Right Arm] Pulse Oximetry Oxygen Delivery Method Sepsis Recent Fever Within 48 Hours Sepsis New/Unexplained Change in Mental Status Sepsis Action Taken by Nursing 11/28/23 15:15 11/28/23 15:21 11/28/23 15:29 Temperature Temperature Source Pulse Rate 109 H 109 H Pulse Rate [Finger] Pulse Rate from SpO2 Sensor 114 H 111 H Pulse Rhythm Pulse Rhythm [Finger] Pulse Strength Pulse Strength [Finger] Respiratory Rate 25 H 20 Respiratory Effort / Characteristics Respiratory Depth Blood Pressure 148/112 H Blood Pressure [Right Arm] Blood Pressure Mean 121 Blood Pressure Mean [Right Arm] Blood Pressure Position [Right Arm] Pulse Oximetry 92 94 Oxygen Delivery Method Sepsis Recent Fever Within 48 Hours Sepsis New/Unexplained Change in Mental Status Sepsis Action Taken by Nursing 11/28/23 15:29 11/28/23 15:29 11/28/23 15:30 Temperature Temperature Source Pulse Rate Pulse Rate [Finger] 102 H Pulse Rate from SpO2 Sensor Pulse Rhythm Pulse Rhythm [Finger] Pulse Strength Pulse Strength [Finger] Respiratory Rate 20 Respiratory Effort / Characteristics Non-Labored Spontaneous Respiratory Depth Normal Blood Pressure 148/112 H 148/112 H Blood Pressure [Right Arm] 148/112 H Blood Pressure Mean 121 121 Blood Pressure Mean [Right Arm] 124 Blood Pressure Position [Right Arm] Pulse Oximetry 92 Oxygen Delivery Method Sepsis Recent Fever Within 48 Hours Sepsis New/Unexplained Change in Mental Status Sepsis Action Taken by Nursing 11/28/23 15:54 11/28/23 16:01 11/28/23 16:01 Temperature Temperature Source Pulse Rate 99 H Pulse Rate [Finger] Pulse Rate from SpO2 Sensor 101 H Pulse Rhythm Pulse Rhythm [Finger] Pulse Strength Pulse Strength [Finger] Respiratory Rate 23 Respiratory Effort / Characteristics Respiratory Depth Blood Pressure 139/106 H 139/106 H Blood Pressure [Right Arm] Blood Pressure Mean 118 118 Blood Pressure Mean [Right Arm] Blood Pressure Position [Right Arm] Pulse Oximetry 95 Oxygen Delivery Method Sepsis Recent Fever Within 48 Hours Sepsis New/Unexplained Change in Mental Status Sepsis Action Taken by Nursing 11/28/23 16:01 11/28/23 16:03 11/28/23 16:15 Temperature Temperature Source Pulse Rate 104 H 113 H Pulse Rate [Finger] Pulse Rate from SpO2 Sensor 114 H Pulse Rhythm Pulse Rhythm [Finger] Pulse Strength Pulse Strength [Finger] Respiratory Rate 22 Respiratory Effort / Characteristics Respiratory Depth Blood Pressure 139/106 H Blood Pressure [Right Arm] Blood Pressure Mean 118 Blood Pressure Mean [Right Arm] Blood Pressure Position [Right Arm] Pulse Oximetry 94 Oxygen Delivery Method Sepsis Recent Fever Within 48 Hours Sepsis New/Unexplained Change in Mental Status Sepsis Action Taken by Nursing Laboratory Data 11/28/23 13:45 11/28/23 13:45 Lab Results 11/28/23 11/28/23 11/28/23 Range/Units 13:45 13:53 16:11 WBC 9.21 (4.8-10.8) K/ul RBC 5.11 (4.20-5.40) M/uL Hgb 14.4 (12.0-16.0) g/dl Hct 44.9 (37.0-47.0) % MCV 87.9 (80.0-100.0) fL MCH 28.2 (25.0-34.0) pg MCHC 32.1 (32.0-36.0) g/dL RDW Std Deviation 51.9 H (36.4-46.3) fL RDW Coeff of Angelic 16.4 H (11.5-14.5) % Plt Count 192 (130-400) K/uL MPV 9.9 (9.4-12.4) fL Immature Gran % (Auto) 0.4 % Neut % (Auto) 82.8 % Lymph % (Auto) 10.6 % Roberts % (Auto) 5.1 % Eos % (Auto) 0.4 % Baso % (Auto) 0.7 % Neut # (Auto) 7.62 H (1.40-6.50) K/uL Lymph # (Auto) 0.98 L (1.20-3.40) K/uL Roberts # (Auto) 0.47 (0.11-0.59) K/uL Eos # (Auto) 0.04 (0.00-0.50) K/uL Baso # (Auto) 0.06 (0.00-0.20) K/uL Immature Gran # (Auto) 0.04 (0.01-0.20) K/uL PT 23.1 H (9.0-12.0) Seconds INR 2.3 H (0.9-1.1) APTT 31 (21-31) Seconds PTT Ratio 1.2 Sodium 141 (136-145) mmol/L Potassium 3.7 (3.5-5.1) mmol/L Chloride 107 (98-107) mmol/L Carbon Dioxide 24 (21-32) mmol/L Anion Gap 10 (3-11) BUN 14 (6-23) mg/dl Creatinine 0.81 (0.6-1.2) mg/dl Est Cr Clr Drug Dosing 62.0 ml/min eGFR 75.65 BUN/Creatinine Ratio 17.3 (10-20) Glucose 204 H (70-99(Fasting)) mg/dl Calcium 9.0 (8.6-10.3) mg/dl Magnesium 1.7 (1.7-2.4) mg/dl Total Bilirubin 1.8 H (0.2-1.0) mg/dl AST 22 (13-39) U/L ALT 17 (7-52) U/L Alkaline Phosphatase 105 H (34-104) U/L Troponin I High Sens 11.8 (0-14) pg/ml B-Natriuretic Peptide 549 H (0-100) pg/ml Total Protein 7.4 (6.0-8.3) gm/dl Albumin 4.3 (3.4-5.0) gm/dl Globulin 3.1 (2.5-4.0) gm/dl Albumin/Globulin Ratio 1.4 (0.9-2) TSH 0.944 (0.300-4.500) uIu/ml Digoxin < 0.3 L (0.8-2.0) ng/ml Adenovirus (PCR) Not Detected (NotDetected) B. pertussis DNA (PCR) Not Detected (NotDetected) B.parapertussis DNA PCR Not Detected (NotDetected) C. pneumoniae DNA (PCR) Not Detected (NotDetected) Coronavirus OC43 (PCR) Not Detected (NotDetected) Coronavirus HKU1 (PCR) Not Detected (NotDetected) Coronavirus 229E (PCR) Not Detected (NotDetected) SARS-CoV-2 (PCR) Not Detected (NotDetected) Coronavirus NL63 (PCR) Not Detected (NotDetected) Human Metapneumovir PCR Not Detected (NotDetected) Influenza Type A (PCR) Not Detected (NotDetected) Influenza Type B (PCR) Not Detected (NotDetected) M. pneumoniae (PCR) Not Detected (NotDetected) Parainfluenza 1 (PCR) Not Detected (NotDetected) Parainfluenza 2 (PCR) Not Detected (NotDetected) Parainfluenza 3 (PCR) Not Detected (NotDetected) Parainfluenza 4 (PCR) Not Detected (NotDetected) RSV (PCR) Not Detected (NotDetected) Entero/Rhino (PCR) Not Detected (NotDetected) Administered Medications Atorvastatin Calcium (Atorvastatin 40 Mg Tab) 40 mg PO HS JIM Stop: 12/28/23 20:59 Last Admin: 11/28/23 20:22 Dose: 40 mg Documented By: ISADORA Insulin Aspart (Insulin Aspart Per Unit Charge) 0 units SC ACHS JIM Stop: 12/28/23 20:59 Last Admin: 11/28/23 21:03 Dose: Not Given Documented By: ISADORA Warfarin Sodium (Warfarin Sod 5 Mg Tab) 5 mg PO [email or web address] [facility] Stop: 12/28/23 15:59 Last Admin: 11/28/23 18:50 Dose: 5 mg Documented By: CA Discontinued Medications Bumetanide 2 mg/ Syringe 8 mls @ 4 mls/min IV ONE ONE Stop: 11/28/23 14:36 Last Admin: 11/28/23 16:01 Dose: 4 mls/min Documented By: HS Magnesium Sulfate/Dextrose (Magnesium Sulfate / D5w) 1 gm in 100 mls @ 50 mls/hr IV ONE ONE Stop: 11/28/23 16:34 Last Infusion: 11/28/23 18:18 Dose: Infused Documented By: Admin: 11/28/23 15:16 Dose: 50 mls/hr Documented By: HS Potassium Chloride (K Storm / Wtr) 10 meq in 100 mls @ 100 mls/hr IV ONE ONE Stop: 11/28/23 15:34 Last Infusion: 11/28/23 18:18 Dose: Infused Documented By: Admin: 11/28/23 15:17 Dose: 100 mls/hr Documented By: HS Metoprolol Tartrate (Metoprolol Tartrate 1 Mg/Ml Vial) 2.5 mg IV NOW STA Stop: 11/28/23 13:50 Last Admin: 11/28/23 13:56 Dose: 2.5 mg Documented By: Metoprolol Tartrate (Metoprolol Tartrate 1 Mg/Ml Vial) 5 mg IV NOW STA Stop: 11/28/23 14:30 Last Admin: 11/28/23 14:46 Dose: 5 mg Documented By: JODY Potassium Chloride (Potassium Chloride Crtab 20 Meq Tabcr) 20 meq PO NOW STA Stop: 11/28/23 14:36 Last Admin: 11/28/23 15:16 Dose: 20 meq Documented By: HS Imaging Data Radiologist's Impression: Chest X-Ray 11/28/23 13:49 XR chest 1V portable CLINICAL HISTORY: Dysrhythmia. COMPARISON STUDY: Chest radiograph December 21, 2021. FINDINGS: There are median sternotomy wires and a prosthetic cardiac valve. Moderate cardiomegaly is unchanged. There is no pneumothorax. Small bilateral pleural effusions with bibasilar opacities are present. Interstitial thickening is noted. IMPRESSION: Cardiomegaly with interstitial pulmonary edema, small bilateral pleural effusions and associated bibasilar opacities. ACT 112: Negative or not required by law. Electronically signed by: Andrew Lujan M.D. 11/28/2023 2:16 PM Discharge Plan Visit Data Chief Complaint: Cardiac Assessment ED Provider: Josue Singh Discharge Problem: Atrial fibrillation with rapid ventricular response Patient Disposition: Against Medical Advice Discharge Instructions Interventions: ED Discharge Assessment Last Done: 11/28/23 17:32
[2023-11-29] MEDS: METOPROLOL TARTRATE 1 MG/ML VIAL IV PRN (00:04)
[2023-11-29 07:14] LABS: Hemoglobin 13.4 g/dl (12.0-16.0); Mean Corpuscular Hemoglobin 27.7 pg (25.0-34.0); Mean Corpuscular Hgb Conc 31.9 g/dL (32.0-36.0); Mean Platelet Volume 9.6 fL (9.4-12.4); Platelet Count 177 K/uL (130-400); RDW Coefficient of Variation 16.4 % (11.5-14.5); RDW Standard Deviation 50.7 fL (36.4-46.3); Red Blood Count 4.83 M/uL (4.20-5.40); White Blood Count 7.65 K/ul (4.8-10.8)
[2023-11-29 07:31] LABS: INR 2.1 (0.9-1.1); Prothrombin Time 21.7 Seconds (9.0-12.0)
[2023-11-29 07:37] LABS: BUN Creatinine Ratio 16.5 (10-20); Creatinine Clr Calc Pharmacy 59.1 ml/min; Magnesium 1.8 mg/dl (1.7-2.4); Potassium 3.4 mmol/L (3.5-5.1)
[2023-11-29] MEDS ORDERED: ENOXAPARIN 1 MG/KG SQ SCH (07:45)
[2023-11-29] MEDS: MAGNESIUM OXIDE 400 MG TAB PO SCH (08:42)
[2023-11-29] MEDS: ESCITALOPRAM OXALATE 20 MG TAB PO SCH (08:42)
[2023-11-29] MEDS: METOPROLOL SUCC 50MG EXT REL TAB PO SCH (08:42)
[2023-11-29] MEDS: POTASSIUM CHLORIDE CRTAB 20 MEQ TABCR PO SCH (08:46)
[2023-11-29] MEDS ORDERED: BUMEX IV SCH (09:00)
[2023-11-29] MEDS ORDERED: BUMETANIDE 1 MG TAB PO SCH (09:00)
[2023-11-29] MEDS: ENOXAPARIN 100 MG/1ML SYR SQ SCH (09:21)
[2023-11-29] MEDS: BUMETANIDE 2 MG in SYRINGE 0 ML IV SCH (09:21)
--- NOTE | 2023-11-29 10:15 | Cardiology Progress Note ---
Date of Service November 29, 2023 Assessment & Plan (1) Acute exacerbation of CHF (congestive heart failure): (2) Heart failure with mid-range ejection fraction: (3) Atrial fibrillation with RVR: (4) History of mechanical aortic valve replacement: Plan Modest clinical improvement but despite good diuresis (-2 L) she still appears hypervolemic, has persistent tachycardia, and demonstrates some mild bronchospasm today. As long as she is diuresing well continue bumetanide 2 mg IV daily, could increase to twice daily if rate of diuresis diminishes. Consider change from albuterol to Xopenex nebulizers to diminish adrenergic component. Although corticosteroids could complicate volume unloading and glucose, if she continues to demonstrate bronchospasm may need to consider addition of corticosteroids. Given favorable renal function, could increase digoxin to 250 mcg daily. Since she is on high-dose beta-alana already, if ventricular rate remains elevated throughout the day and BP allows, would add diltiazem to her regimen. Would start with short acting agent in order to monitor hemodynamic effects (diltiazem 30 mg every 8 hours as needed heart rate greater than 110 bpm as long as SBP greater than 100 mmHg), Adjust warfarin to achieve INR 2.53.0 (from reasons previously specified). Continue to replete potassium and magnesium. Will continue to follow. Admission and Anticipated Discharge Date Admission Date: November 28, 2023 Subjective She slept reasonably well last night and feels a bit better. However, when walking to the sink to wash up and back she became dyspneic briefly. No further chest discomfort or heaviness overnight. No dyspnea at rest (not on oxygen). No orthopnea or PND. No lightheadedness or tachypalpitations. Input/output -2090 mL. Weight unchanged but not likely accurate (bed scale). Telemetry overnight showed atrial fibrillation with ventricular rate 110-140 bpm, average around 120 bpm. Physical Exam Physical Exam: No distress. Afebrile. BP normotensive. Pulse 120 bpm and regular. Respirations 19 and unlabored. Skin: no ecchymoses or lesions. HEENT: unremarkable. Neck: JVP long-term to the angle of the jaw at 90 degrees. No carotid bruits or transmitted murmur. Lungs: Bibasilar crackles, moderately diminished breath sounds with some expiratory wheezing on forced exhalation. No accessory muscle use. Cardiac: Irregular/tachycardic rhythm, 2/6 basal systolic ejection murmur radiating to the suprasternal notch, crisp prosthetic aortic closure sound. No diastolic murmur or gallop. Abdomen benign. Extremities: No ankle edema, pulses brisk, good capillary refill. Neurologic: normal affect and conversation, grossly nonfocal. Results & Data Laboratory Results INR 2.1. Potassium 3.4. Magnesium 1.8. BUN 14, creatinine 0.85. Normal CBC. Diagnostic Findings ECG today showed atrial fibrillation with ventricular rate 116 bpm, right bundle branch block, nonspecific ST-T wave abnormalities. Compared with yesterday, ventricular rate has decreased by 39 bpm. PG Care Time/CCT Total # of Minutes Spent Total Time Spent with Patient: Total time spent is greater than 50% in coordination of care (as documented) at patient's floor/unit and/or counseling patient: Coding Level of Care Code 49164 SUB INP/OBS CARE 3/50MIN Diagnoses Acute exacerbation of CHF (congestive heart failure) I50.33 Heart failure type: diastolic Heart failure with mid-range ejection fraction I50.22 Atrial fibrillation with RVR I48.91 History of mechanical aortic valve replacement Z95.2 (1) Acute exacerbation of CHF (congestive heart failure) Heart failure type: diastolic Qualified Code(s): I50.33 - Acute on chronic diastolic (congestive) heart failure
--- NOTE | 2023-11-29 10:41 | Electrocardiogram Report ---
Test Reason : Blood Pressure : */* mmHG Vent. Rate : 116 BPM Atrial Rate : 108 BPM P-R Int : * ms QRS Dur : 126 ms QT Int : 370 ms P-R-T Axes : * 111 -87 degrees QTcB Int : 514 ms Atrial fibrillation with rapid ventricular response with premature ventricular or aberrantly conducte d complexes Right bundle branch block Diffuse Nonspecific ST and T wave abnormality Abnormal ECG When compared with ECG of 28-Nov-2023 13:46, HR has decreased by 39 bpm Confirmed by Dk Villela ([id number]) on 11/29/2023 10:41:13 AM Referred By: Aruna Mack Confirmed By: Dk Villela
--- NOTE | 2023-11-29 11:05 | XCELERA ---
[id number]
[2023-11-29] MEDS: FLUTICASONE PROPIONATE NA SPR 16 GM BTL SCH (15:34)
[2023-11-29] MEDS: WARFARIN SOD 7.5 MG TAB PO SCH (16:06)
[2023-11-29] MEDS: DIGOXIN 0.125 MG TAB PO SCH (16:07)
--- NOTE | 2023-11-29 18:10 | Hospitalist Progress Note ---
Date of Service November 29, 2023 Assessment & Plan (1) Atrial fibrillation with rapid ventricular response: Plan: Patient has been given multiple doses of IV metoprolol in the ER. Her heart rate has improved. May need to increase her daily dose depending on response Will give 1 dose of digoxin IV as a loading dose and change her oral dosing from 0.125 mg every other day to daily Cardiology consulted, appreciate consult (2) Acute on chronic heart failure with preserved ejection fraction: Plan: Continue IV Bumex daily to twice daily depending on diuretic response Follow intake and output Daily weights Follow electrolytes, keep magnesium level above 2 and potassium above 4 Check echocardiogram (3) Permanent atrial fibrillation: Plan: Continue warfarin Daily PT/INR (4) Long-term (current) use of anticoagulants, INR goal 2.5-3.5: Plan: As above (5) History of mechanical aortic valve replacement: Plan: Check echocardiogram (6) Lab test negative for COVID-19 virus: Plan: Patient's viral panel including COVID testing is negative. Symptomatic treatment for URI although it seems she is at the very tail end (7) DMII (diabetes mellitus, type 2): Plan: Will hold oral diabetic medications Continue blood sugars at before meals and at bedtime Insulin coverage (8) Depression: Plan: Continue lokc-vkd-zblnpea antidepressant as indicated (9) Dyslipidemia: Plan: Continue the statin (10) URI (upper respiratory infection): Plan: Symptomatic treatment Admission and Anticipated Discharge Date Admission Date: November 29, 2023 Results & Data Results & Data Vital Signs (Past 12 Hours) Vital Signs Temp Pulse Pulse Resp BP Pulse Ox O2 Del Method 11/29/23 15:38 36.5 C 104 H 18 129/80 92 Room Air 11/29/23 15:00 105 H 11/29/23 11:29 36.6 C 115 H 19 138/90 93 Room Air 11/29/23 07:12 36.4 C L 120 H 19 131/84 92 Room Air 11/29/23 07:00 120 H
[2023-11-30 06:43] LABS: Basophils # (auto) 0.07 K/uL (0.00-0.20); Basophils % (auto) 1.1 %; Eosinophils # (auto) 0.21 K/uL (0.00-0.50); Eosinophils % (auto) 3.3 %; Hematocrit (blood only) 41.3 % (37.0-47.0); Hemoglobin 13.6 g/dl (12.0-16.0); Immature Granulocytes # (auto) 0.02 K/uL (0.01-0.20); Immature Granulocytes % (auto) 0.3 %; Lymphocytes # (auto) 1.57 K/uL (1.20-3.40); Lymphocytes % (auto) 24.5 %; Mean Corpuscular Hemoglobin 28.5 pg (25.0-34.0); Mean Corpuscular Hgb Conc 32.9 g/dL (32.0-36.0); Mean Corpuscular Volume 86.4 fL (80.0-100.0); Mean Platelet Volume 9.9 fL (9.4-12.4); Monocytes # (auto) 0.44 K/uL (0.11-0.59); Monocytes % (auto) 6.9 %; Neutrophils # (auto) 4.09 K/uL (1.40-6.50); Neutrophils % (auto) 63.9 %; Platelet Count 174 K/uL (130-400); RDW Coefficient of Variation 16.2 % (11.5-14.5); RDW Standard Deviation 50.4 fL (36.4-46.3); Red Blood Count 4.78 M/uL (4.20-5.40)
[2023-11-30 06:54] LABS: Potassium 3.6 mmol/L (3.5-5.1)
[2023-11-30 06:55] LABS: Albumin Globulin Ratio 1.5 (0.9-2); Albumin Level 4.1 gm/dl (3.4-5.0); BUN Creatinine Ratio 23.3 (10-20); Bilirubin,Total 1.8 mg/dl (0.2-1.0); Creatinine Clr Calc Pharmacy 54.9 ml/min; Globulin 2.8 gm/dl (2.5-4.0); Total Protein 6.9 gm/dl (6.0-8.3)
[2023-11-30 07:34] LABS: Prothrombin Time 20.8 Seconds (9.0-12.0)
--- NOTE | 2023-11-30 08:47 | Electrocardiogram Report ---
Test Reason : Blood Pressure : */* mmHG Vent. Rate : 103 BPM Atrial Rate : 51 BPM P-R Int : * ms QRS Dur : 126 ms QT Int : 386 ms P-R-T Axes : * 120 264 degrees QTcB Int : 505 ms Poor data quality, interpretation may be adversely affected Atrial fibrillation with rapid ventricular response Right bundle branch block Diffuse Nonspecific ST and T wave abnormality Abnormal ECG When compared with ECG of 29-Nov-2023 05:59, No significant change was found Confirmed by Dk Villela ([id number]) on 11/30/2023 8:46:48 AM Referred By: Aruna Mack Confirmed By: Dk Villela
--- NOTE | 2023-11-30 11:56 | XRay Report ---
XR chest 1V portable CLINICAL HISTORY: ff up chf, r/o pneumonia COMPARISON STUDY: Chest radiograph November 28, 2023. FINDINGS: There are mediastinal wires and a prosthetic cardiac valve. Cardiomegaly is again noted. Th ere is no pneumothorax. Small bilateral pleural effusions are noted. There are mild bibasilar opaciti es. Interstitial thickening persists. The appearance of the chest is unchanged. IMPRESSION: 1. Cardiomegaly with persistent pulmonary edema. Small bilateral pleural effusions. 2. Bibasilar opacities which favor atelectasis. Pneumonia could appear similar although is considered less likely. ACT 112: Negative or not required by law. Electronically signed by: Andrew Lujan M.D. 11/30/2023 11:54 AM
--- NOTE | 2023-11-30 12:11 | Cardiology Progress Note ---
Date of Service November 30, 2023 Assessment & Plan (1) Acute exacerbation of CHF (congestive heart failure): (2) Heart failure with mid-range ejection fraction: (3) Atrial fibrillation with RVR: (4) History of mechanical aortic valve replacement: Plan Substantial clinical improvement overnight, appears euvolemic with no further evidence of bronchospasm. Although echocardiogram suggested decline in LV systolic function, study was obtained while she was tachycardic and likely will improve with better rate control. If she is able to ambulate hallways without significant dyspnea, okay for discharge home later today. Emphasized importance of her obtaining daily weights at home (which she had not been doing), recommend discharge on bumetanide 2 mg daily with increase to 3 mg should she have a 2 pound weight gain overnight or 5 pound weight gain in 1 week. Upon discharge would: Continue digoxin, but increase dose to 250 mcg daily. Continue metoprolol 300 mg daily. Continue Entresto 24/26 mg twice daily. Continue warfarin, adjust dosing to achieve INR 2.53.5. Continue bumetanide, weight-based regimen as noted above. She already has a previously scheduled appointment for follow-up with me on 12/14/2023. Will also arrange follow-up with Mary Mack PA-C in heart failure clinic in 1 week. Admission and Anticipated Discharge Date Admission Date: November 29, 2023 Subjective States that she feels "much better" today. Slept well overnight. No chest discomfort and no dyspnea on modest exertion (walking about the room). No lig htheadedness or subjective palpitations. Telemetry showed atrial fibrillation with ventricular rate 90-110 bpm range. Physical Exam Physical Exam: No distress. Afebrile. BP normotensive. Pulse 8090 bpm and irregular. Respirations 19 and unlabored. Skin: no ecchymoses or lesions. HEENT: unremarkable. Neck: JVP just above the clavicle. No carotid bruits or transmitted murmur. Lungs: Clear bilaterally, no wheezing or crackles. Cardiac: Irregular rhythm, 2/6 basal systolic ejection murmur radiating to the suprasternal notch, crisp prosthetic aortic closure sound. No diastolic murmur or gallop. Abdomen benign. Extremities: No ankle edema, pulses brisk, good capillary refill. Neurologic: normal affect and conversation, grossly nonfocal. Results & Data Vital Signs (Past 12 Hours) Vital Signs Temp Pulse Pulse Resp BP BP Pulse Ox 11/30/23 11:47 11/30/23 10:58 97.7 F 82 19 129/81 94 11/30/23 07:57 101 H 11/30/23 07:09 98.4 F 88 17 129/78 61 L 11/30/23 03:11 97.7 F 91 H 18 130/81 92 O2 Del Method 11/30/23 11:47 Room Air 11/30/23 10:58 Room Air 11/30/23 07:57 11/30/23 07:09 Room Air 11/30/23 03:11 Room Air Laboratory Results Normal electrolytes including potassium 3.6, BUN 21, creatinine 0.9. INR 2.0. Diagnostic Findings ECG showed atrial fibrillation with ventricular rate 103 bpm, right bundle branch block, diffuse nonspecific ST T wave abnormality which is chronic. No change compared with yesterday. Echocardiogram yesterday showed EF 30 to 35% with mild to moderate global hypokinesis, moderately dilated RV with moderately reduced systolic function, appropriately functioning mechanical aortic valve, moderate to severe MR/TR, moderate pulmonary hypertension. Of note, echo was done while patient was in atrial fibrillation with rapid ventricular sponsor (120 bpm) throughout the study. PG Care Time/CCT Total # of Minutes Spent Total Time Spent with Patient: Total time spent is greater than 50% in coordination of care (as documented) at patient's floor/unit and/or counseling patient: Coding Level of Care Code 40461 SUB INP/OBS CARE 3/50MIN Diagnoses Acute exacerbation of CHF (congestive heart failure) I50.33 Heart failure type: diastolic Heart failure with mid-range ejection fraction I50.22 Atrial fibrillation with RVR I48.91 History of mechanical aortic valve replacement Z95.2 (1) Acute exacerbation of CHF (congestive heart failure) Heart failure type: diastolic Qualified Code(s): I50.33 - Acute on chronic diastolic (congestive) heart failure
--- NOTE | 2023-11-30 16:04 | Hospitalist Progress Note ---
Date of Service November 30, 2023 Assessment & Plan (1) Atrial fibrillation with rapid ventricular response: Plan: per admitting service notes with addendum: Patient has been given multiple doses of IV metoprolol in the ER. Her heart rate has improved. May need to increase her daily dose depending on response Will give 1 dose of digoxin IV as a loading dose and change her oral dosing from 0.125 mg every other day to daily Cardiology consulted, appreciate consult 11/29 HR improving Cardiology recommendations noted increase Digoxin to 250mcg daily continue Metoprolol XL 300mg daily (2) Acute on chronic heart failure with preserved ejection fraction: Plan: Continue IV Bumex daily to twice daily depending on diuretic response Follow intake and output Daily weights Follow electrolytes, keep magnesium level above 2 and potassium above 4 Check echocardiogram 11/29 diuresing well continue Bumex 2mg IV daily CXR: (+) bilateral lower lobe infiltrates CT chest ordered (3) Permanent atrial fibrillation: Plan: Continue warfarin Daily PT/INR (4) Long-term (current) use of anticoagulants, INR goal 2.5-3.5: Plan: As above (5) History of mechanical aortic valve replacement: Plan: INR 2.0 increase coumadin, 12.5mg one dose today continue Lovenox 90mg sc BID (6) Lab test negative for COVID-19 virus: Plan: Patient's viral panel including COVID testing is negative. Symptomatic treatment for URI although it seems she is at the very tail end (7) DMII (diabetes mellitus, type 2): Plan: Will hold oral diabetic medications Continue blood sugars at before meals and at bedtime Insulin coverage (8) Depression: Plan: Continue kdzd-zcr-fwbjhli antidepressant as indicated (9) Dyslipidemia: Plan: Continue the statin (10) URI (upper respiratory infection): Plan: Symptomatic treatment Admission and Anticipated Discharge Date Admission Date: November 29, 2023 Subjective ff up for a fib rvr, chf, etc seen resting in bed, comfortable states she is feeling improved overall she had some dyspnea after ambulating in the hallway today no chest pain, palpitations, dizziness no other symptoms Review of Systems Review of Systems: all noted and negative except for above Physical Exam Physical Exam: General- oriented x 3, not in distress, speaks in sentences with no effort or accessory muscle use Eyes- anicteric Neck- no JVD Lungs-(+) crackles on the right base>left base Heart- normal rate, regular rhythm; no murmurs Abdomen- normal bowel sounds, nondistended, soft, no tenderness Extremities- trace pretibial edema, no calf tenderness Neuro- alert, oriented x 3; no gross focal neurologic deficits Skin- warm & dry Results & Data Results & Data Vital Signs (Past 12 Hours) Vital Signs Temp Pulse Pulse Resp BP BP Pulse Ox 11/30/23 15:00 104 H 11/30/23 14:44 37.0 C 111 H 18 114/71 93 11/30/23 11:47 11/30/23 10:58 36.5 C 82 19 129/81 94 11/30/23 07:57 101 H 11/30/23 07:09 36.9 C 88 17 129/78 61 L O2 Del Method 11/30/23 15:00 11/30/23 14:44 Room Air 11/30/23 11:47 Room Air 11/30/23 10:58 Room Air 11/30/23 07:57 11/30/23 07:09 Room Air all noted and reviewed including below
[2023-11-30] MEDS: WARFARIN SOD 2.5 MG TAB PO ONE (16:44)
[2023-11-30] MEDS: WARFARIN SOD 10 MG TAB PO SCH (17:18)
--- NOTE | 2023-11-30 18:27 | CT Scan Report ---
CT chest diagnostic wo con CLINICAL HISTORY: chf, r/o pneumonia TECHNIQUE: Multidetector row helical CT of the chest was performed. Coronal and sagittal reformations were obtained. Automated dose lowering techniques and/or adjustment according to patient size were u tilized for this exam. CT DOSE: 618.48 mGy.cm Comparison: Comparison is made to CT abdomen pelvis 10/12/2011 FINDINGS: Lungs and pleura: Trace bilateral pleural effusions are seen. Mild atelectasis is seen. Bronchial wal l thickening and mosaic attenuation are seen. There is a 3 mm nodule in the right upper lobe (series 4 image 82) and a 6 mm nodule right middle lobe (image 143). Heart and pericardium: Cardiomegaly is seen with biatrial enlargement. Vessels: Ascending aortic aneurysm measures 43 mm in diameter. Mediastinum and home: Mediastinal lymph nodes measure up to 11 mm in diameter. Chest wall and lower neck: Unremarkable. Abdomen: Unremarkable. Bones: Mild degenerative changes are seen in the skeleton. IMPRESSION: 1. Bronchial wall thickening and mosaic attenuation may reflect airways disease. No radha consolidat ion is seen. 2. Trace bilateral pleural effusions. 3. Small pulmonary nodules which may be infectious/inflammatory in origin. Follow-up to resolution i s recommended. ACT 112: Negative or not required by law. Electronically signed by: Edy Figueroa M.D. 11/30/2023 6:24 PM
[2023-12-01 06:54] LABS: INR 2.1 (0.9-1.1); Prothrombin Time 21.1 Seconds (9.0-12.0)
[2023-12-01 07:06] LABS: Albumin Globulin Ratio 1.5 (0.9-2); Albumin Level 4.1 gm/dl (3.4-5.0); BUN Creatinine Ratio 27.1 (10-20); Bilirubin,Total 1.7 mg/dl (0.2-1.0); Calcium 9.1 mg/dl (8.6-10.3); Creatinine Clr Calc Pharmacy 58.5 ml/min; Globulin 2.8 gm/dl (2.5-4.0); Potassium 3.6 mmol/L (3.5-5.1); Total Protein 6.9 gm/dl (6.0-8.3)
--- NOTE | 2023-12-01 07:33 | Hospitalist Progress Note ---
Date of Service December 01, 2023 Assessment & Plan (1) Atrial fibrillation with rapid ventricular response: Plan: per admitting service notes with addendum: Patient has been given multiple doses of IV metoprolol in the ER. Her heart rate has improved. May need to increase her daily dose depending on response Will give 1 dose of digoxin IV as a loading dose and change her oral dosing from 0.125 mg every other day to daily Cardiology consulted, appreciate consult 11/29 HR improving Cardiology recommendations noted increase Digoxin to 250mcg daily continue Metoprolol XL 300mg daily 11/30 HR under control discharge recommendations per Cardiology [facility]- Dr. Villela: Continue digoxin, but increase dose to 250 mcg daily. Continue metoprolol 300 mg daily. Continue Entresto 24/26 mg twice daily. Continue warfarin, adjust dosing to achieve INR 2.53.5. Agree with temporary Lovenox until her INR is closer to 2.5. She already has a previously scheduled appointment for follow-up with me on 12/14/2023. Have also arranged for follow-up with Mary Mack PA-C in heart failure clinic in 1 week. (2) Acute on chronic heart failure with preserved ejection fraction: Plan: Echocardiogram: Left ventricular dysfunction is moderately reduced Left ventricular ejection fraction 30 to 35% Mild to moderate global hypokinesis of the left ventricle Right ventricle is moderately dilated Right ventricular systolic function is moderately reduced There is a mechanical aortic valve Gradient is normal for this prosthetic aortic valve Moderate to severe mitral regurgitation Moderate to severe tricuspid regurgitation Right ventricular systolic pressure is elevated at 50 to 60 mm mercury 11/30 diuresed well with IV BUmex continue Bumex 2mgPO daily (3) Permanent atrial fibrillation: Plan: metoprolol as above on coumadin (4) Long-term (current) use of anticoagulants, INR goal 2.5-3.5: Plan: As above (5) History of mechanical aortic valve replacement: Plan: INR subtherapeutic during admission Lovenox 90mg SC q12 given for bridging, continue upon discharge until INR >=2.5 increase coumadin to 7.5 mg p.o. daily Coumadin clinic notified regarding discharge plan and follow-up INR on Monday (6) Abnormal finding on CT scan: Plan: Lungs and pleura: Trace bilateral pleural effusions are seen. Mild atelectasis is seen. Bronchial wall thickening and mosaic attenuation are seen. There is a 3 mm nodule in the right upper lobe (series 4 image 82) and a 6 mm nodule right middle lobe (image 143). Heart and pericardium: Cardiomegaly is seen with biatrial enlargement. Vessels: Ascending aortic aneurysm measures 43 mm in diameter. Mediastinum and home: Mediastinal lymph nodes measure up to 11 mm in diameter. Chest wall and lower neck: Unremarkable. Abdomen: Unremarkable. Bones: Mild degenerative changes are seen in the skeleton. IMPRESSION: 1. Bronchial wall thickening and mosaic attenuation may reflect airways disease. No radha consolidation is seen. 2. Trace bilateral pleural effusions. 3. Small pulmonary nodules which may be infectious/inflammatory in origin. Follow-up to resolution is recommended. Further work up, management, and ff up as outpatient (7) Lab test negative for COVID-19 virus: Plan: Patient's viral panel including COVID testing is negative. Symptomatic treatment for URI although it seems she is at the very tail end - Mucinex, Incentive spirometer and Flutter valve (8) DMII (diabetes mellitus, type 2): Plan: continue oral meds (9) Depression: Plan: Continue crcz-esf-stpyvpi antidepressant as indicated (10) Dyslipidemia: Plan: Continue the statin (11) URI (upper respiratory infection): Plan: Symptomatic treatment Admission and Anticipated Discharge Date Admission Date: November 29, 2023 Subjective Follow-up for acute CHF, A-fib with RVR, etc. Seen resting in bed, sitting up, comfortable, good spirits States she feels better today Able to ambulate today with minimal dyspnea No chest pain, dizziness, palpitations Cough has improved, now minimal No fevers or chills No other new symptoms States she is ready for discharge today Review of Systems Review of Systems: all noted and negative except for above Physical Exam Physical Exam: General- oriented x 3, not in distress, speaks in sentences with no effort or accessory muscle use Eyes- anicteric Neck- no JVD Lungs- clear breath sounds bilaterally, no rales/wheezes Heart- normal rate, irregularly irregular rhythm; no murmurs Abdomen- normal bowel sounds, nondistended, soft, nontender Extremities- no pretibial edema, no calf tenderness Neuro- alert, oriented x 3; no gross focal neurologic deficits Skin- warm & dry Results & Data Results & Data Vital Signs (Past 12 Hours) Vital Signs Temp Pulse Resp BP BP Pulse Ox O2 Del Method 12/01/23 07:13 36.9 C 91 H 16 113/72 94 Room Air 12/01/23 03:15 36.9 C 103 H 18 125/79 92 Room Air 11/30/23 23:21 36.9 C 103 H 18 117/71 94 Room Air 11/30/23 20:32 Room Air all noted and reviewed including below
--- NOTE | 2023-12-01 09:19 | Cardiology Progress Note ---
Date of Service December 01, 2023 Assessment & Plan (1) Acute on chronic heart failure with preserved ejection fraction: (2) Heart failure with mid-range ejection fraction: (3) Atrial fibrillation with rapid ventricular response: (4) History of mechanical aortic valve replacement: Plan Feels and looks better today. Okay for discharge if she is able to ambulate without too much difficulty. Reviewed with her again the importance of daily weights and salt/sodium restriction as well as medication compliance. Upon discharge would: Continue digoxin, but increase dose to 250 mcg daily. Continue metoprolol 300 mg daily. Continue Entresto 24/26 mg twice daily. Continue warfarin, adjust dosing to achieve INR 2.53.5. Agree with temporary Lovenox until her INR is closer to 2.5. She already has a previously scheduled appointment for follow-up with me on 12/14/2023. Have also arranged for follow-up with Mary Mack PA-C in heart failure clinic in 1 week. Admission and Anticipated Discharge Date Admission Date: November 29, 2023 Subjective She became easily winded when she ambulated the hallways yesterday and her ventricular rate was still borderline, so she remained hospitalized overnight. She walked the hallway several times, noting that she was less dyspneic each time. She feels well currently, she will attempt ambulation again shortly. No current somatic complaints, denies chest pain, dyspnea at rest, subjective palpitations, or lightheadedness. She did undergo a chest CT yesterday which showed no pulmonary embolism or heart failure but did demonstrate trace bilateral effusions and small pulmonary nodules and bronchial wall thickening which were likely infectious/inflammatory. Telemetry showed atrial fibrillation with borderline controlled ventricular rate (90-110 bpm). Physical Exam Physical Exam: No distress. Afebrile. BP normotensive. Pulse 90 bpm and irregular. Respirations 16 and unlabored. Skin: no ecchymoses or lesions. HEENT: unremarkable. Neck: JVP just above the clavicle. No carotid bruits or transmitted murmur. Lungs: Clear bilaterally, no wheezing or crackles. Cardiac: Irregular rhythm, 2/6 basal systolic ejection murmur radiating to the suprasternal notch, crisp prosthetic aortic closure sound. No diastolic murmur or gallop. Abdomen benign. Extremities: No ankle edema, pulses brisk, good capillary refill. Neurologic: normal affect and conversation, grossly nonfocal. Results & Data Laboratory Results Normal electrolytes, including potassium 3.6, BUN 23, creatinine 0.85. INR 2.1. PG Care Time/CCT Total # of Minutes Spent Total Time Spent with Patient: Total time spent is greater than 50% in coordination of care (as documented) at patient's floor/unit and/or counseling patient: Coding Level of Care Code 76549 SUB INP/OBS CARE 2/35MIN Diagnoses Acute on chronic heart failure with preserved ejection fraction I50.33 Heart failure with mid-range ejection fraction I50.22 Atrial fibrillation with rapid ventricular response I48.91 History of mechanical aortic valve replacement Z95.2
[2023-12-01 10:31] VITALS: BP 127/82; RESP 18; TEMP 97.5; O2SAT 92
[2023-12-01] MEDS: INFLUENZA VACC TS2024-25(65y+)/PF (IIV3) 0.5mL Syr IM ONE (10:47)
[2023-12-01 12:12] VITALS: PULSE 78
--- NOTE | 2023-12-01 12:14 | Discharge Summary ---
Discharge Summary Date of Service December 01, 2023 Principal Dx & Hospital Course #1 = Principal Diagnosis (1) Atrial fibrillation with rapid ventricular response: per admitting service notes with addendum: Cardiology service consulted-Dr. Villela Digoxin increased to 250 mcg daily Patient's usual Entresto, Toprol XL resume Patient's heart rate gradually improved 11/30 HR under control discharge recommendations per Cardiology [facility]- Dr. Villela: Continue digoxin, but increase dose to 250 mcg daily. Continue metoprolol 300 mg daily. Continue Entresto 24/26 mg twice daily. Continue warfarin, adjust dosing to achieve INR 2.53.5. Agree with temporary Lovenox until her INR is closer to 2.5. She already has a previously scheduled appointment for follow-up with me on 12/14/2023. Have also arranged for follow-up with Mary Mack PA-C in heart f ailure clinic in 1 week. (2) Acute on chronic heart failure with preserved ejection fraction: Echocardiogram: Left ventricular dysfunction is moderately reduced Left ventricular ejection fraction 30 to 35% Mild to moderate global hypokinesis of the left ventricle Right ventricle is moderately dilated Right ventricular systolic function is moderately reduced There is a mechanical aortic valve Gradient is normal for this prosthetic aortic valve Moderate to severe mitral regurgitation Moderate to severe tricuspid regurgitation Right ventricular systolic pressure is elevated at 50 to 60 mm mercury 11/30 diuresed well with IV BUmex continue Bumex 2mg PO daily (3) Permanent atrial fibrillation: metoprolol as above on coumadin (4) Long-term (current) use of anticoagulants, INR goal 2.5-3.5: As above (5) History of mechanical aortic valve replacement: INR subtherapeutic during admission Lovenox 90mg SC q12 given for bridging, continue upon discharge until INR >=2.5 increase coumadin to 7.5 mg p.o. daily Coumadin clinic notified regarding discharge plan and follow-up INR on Monday (6) Abnormal finding on CT scan: Lungs and pleura: Trace bilateral pleural effusions are seen. Mild atelectasis is seen. Bronchial wall thickening and mosaic attenuation are seen. There is a 3 mm nodule in the right upper lobe (series 4 image 82) and a 6 mm nodule right middle lobe (image 143). Heart and pericardium: Cardiomegaly is seen with biatrial enlargement. Vessels: Ascending aortic aneurysm measures 43 mm in diameter. Mediastinum and home: Mediastinal lymph nodes measure up to 11 mm in diameter. Chest wall and lower neck: Unremarkable. Abdomen: Unremarkable. Bones: Mild degenerative changes are seen in the skeleton. IMPRESSION: 1. Bronchial wall thickening and mosaic attenuation may reflect airways disease. No radha consolidation is seen. 2. Trace bilateral pleural effusions. 3. Small pulmonary nodules which may be infectious/inflammatory in origin. Follow-up to resolution is recommended. Further work up, management, and ff up as outpatient (7) Lab test negative for COVID-19 virus: Patient's viral panel including COVID testing is negative. Symptomatic treatment for URI although it seems she is at the very tail end - Mucinex, Incentive spirometer and Flutter valve (8) DMII (diabetes mellitus, type 2): continue oral meds (9) Depression: Continue [id number] antidepressant as indicated (10) Dyslipidemia: Continue the statin (11) URI (upper respiratory infection): Symptomatic treatment Notes For Next Care Provider Patient has several abnormal CT scan of the chest findings Please refer to full report Further workup and management as an outpatient Medication Changes From Visit Digoxin increased to 250 mcg daily Coumadin increased to 7.5 mg p.o. daily Lovenox bridge until INR therapeutic 2.5-3.5 Potassium supplement Mucinex Admission HPI Per Admitting Provider Alexsandra Wolf is a 73-year-old female with a prior history of mechanical aortic valve replacement, permanent atrial fibrillation requiring high-dose metoprolol at 300 mg daily plus digoxin 0.125 mg every other day and chronic heart failure with borderline ejection fraction who presents to the ER with evidence of acute on chronic heart failure and atrial fibrillation with RVR. She was seen in the cardiology clinic today and was sent over to the emergency room after she was found to be in atrial fibrillation with a rapid ventricular rate in the 140s. She notes that she had a URI last week with a low-grade fever and some chills. She had some nasal congestion and a dry cough. She was only taking Mucinex for this. She does have a history of allergic rhinitis. There was a question of compliance with medication given the fact that her digoxin level was undetectable. As far she knows she has been taking her medication on a regular basis although she does admit sometimes she forgets a dose here and there. In the ED the patient was given several IV doses of metoprolol. She was given IV Bumex. She has been seen by cardiology and the case has been discussed with Dr. Villela. Patient is admitted for further diuresis and rate control. Her medications were reviewed. She states she is not taking Jardiance or Entresto because of the extreme cost. All the other medications are confirmed. Admission Exam Per Admitting Provider General- adult elderly female seen at bedside in the emergency room. Dr. Owens was present as well. Her son is present. Head- atraumatic Eyes- PERRL, EOMI, anicteric ENT- oropharynx clear Neck- supple, mild JVD, no adenopathy, no thyromegaly; Lungs-diminished breath sounds in the bases Heart-irregularly irregular at 104 bpm currently; Abdomen- normal bowel sounds, soft, nontender, no masses or hepatosplenomegaly Extremities- no pretibial edema, no calf tenderness; peripheral pulses intact Neuro- alert, oriented x 3; PERRL, EOMI; no facial palsy; no dysarthria; motor 5/5 bilaterally; Skin- warm & dry Discharge Exam General- oriented x 3, not in distress, speaks in sentences with no effort or accessory muscle use Eyes- anicteric Neck- no JVD Lungs- clear breath sounds bilaterally, no rales/wheezes Heart- normal rate, irregularly irregular rhythm; no murmurs Abdomen- normal bowel sounds, nondistended, soft, nontender Extremities- no pretibial edema, no calf tenderness Neuro- alert, oriented x 3; no gross focal neurologic deficits Skin- warm & dry Updated Medication List Medication Instructions Recorded Confirmed Type amoxicillin 500 mg capsule 2,000 mg PO DIRECTED PRN 1 HR. 09/17/18 11/28/23 History PRIOR TO DENTAL APPT. promethazine 12.5 mg tablet 12.5 mg PO Q6 PRN Nausea #30 tabs 09/17/18 11/28/23 History acetaminophen 325 mg tablet 650 mg PO Q6H PRN Pain 06/18/21 11/28/23 History (Tylenol) loratadine 10 mg capsule 10 mg PO DAILY PRN Allergy Symptoms 06/18/21 11/28/23 History phenazopyridine 200 mg tablet 200 mg PO TID PRN Bladder Spasms 06/18/21 11/28/23 History (Pyridium) trazodone 50 mg tablet 50 mg PO HS 06/18/21 11/28/23 History albuterol sulfate 90 mcg/actuation 2 puff inhalation DIRECTED PRN 07/13/21 11/28/23 History aerosol inhaler Shortness Of Breath Or Wheezing fluticasone propionate 50 2 spray intranasal DAILY PRN 07/21/21 11/28/23 History mcg/actuation nasal Congestion spray,suspension escitalopram oxalate 20 mg tablet 20 mg PO DAILY #90 tabs 01/30/23 11/28/23 Rx atorvastatin 40 mg tablet 40 mg PO HS #90 tabs 05/09/23 11/28/23 Rx empagliflozin 10 mg tablet 25 mg PO DAILY 06/08/23 11/28/23 History (Jardiance) glipizide 5 mg tablet 10 mg PO BID 06/08/23 11/28/23 History bumetanide 1 mg tablet 2 mg (2 x 1 mg) PO DAILY edema, 12/01/23 Rx weight gain, GAYTAN 30 days #60 tabs digoxin 250 mcg (0.25 mg) tablet 250 mcg PO DAILY 30 days #30 tabs 12/01/23 Rx enoxaparin 100 mg/mL subcutaneous 90 mg (0.9 mL) subcut Q12H 14 days 12/01/23 Rx syringe #25.2 mL guaifenesin 600 mg tablet, 600 mg PO BID 7 days #14 tabs 12/01/23 Rx extended release 12 hr (Mucinex) metoprolol succinate 100 mg 300 mg (3 x 100 mg) PO DAILY 30 12/01/23 Rx tablet,extended release 24 hr days #90 tabs (Toprol XL) potassium chloride 20 mEq 20 meq PO DAILY 30 days #30 tabs 12/01/23 Rx tablet,extended release(part/cryst) sacubitril 24 mg-valsartan 26 mg 1 tab PO BID 30 days #60 tabs 12/01/23 Rx tablet (Entresto) warfarin 5 mg tablet 7.5 mg (1.5 x 5 mg) PO DAILY #0 12/01/23 11/28/23 Rx tabs Hospital Stay Data Consultations 11/28/23 15:40 ED Decision to Admit Stat 11/28/23 18:06 Consult Cardiology Routine Diagnostic Imagining Performed 11/30/23 16:11 CT chest diagnostic wo con Routine CT chest diagnostic wo con CLINICAL HISTORY: chf, r/o pneumonia TECHNIQUE: Multidetector row helical CT of the chest was performed. Coronal and sagittal reformations were obtained. Automated dose lowering techniques and/or adjustment according to patient size were utilized for this exam. CT DOSE: 618.48 mGy.cm Comparison: Comparison is made to CT abdomen pelvis 10/12/2011 FINDINGS: Lungs and pleura: Trace bilateral pleural effusions are seen. Mild atelectasis is seen. Bronchial wall thickening and mosaic attenuation are seen. There is a 3 mm nodule in the right upper lobe (series 4 image 82) and a 6 mm nodule right middle lobe (image 143). Heart and pericardium: Cardiomegaly is seen with biatrial enlargement. Vessels: Ascending aortic aneurysm measures 43 mm in diameter. Mediastinum and home: Mediastinal lymph nodes measure up to 11 mm in diameter. Chest wall and lower neck: Unremarkable. Abdomen: Unremarkable. Bones: Mild degenerative changes are seen in the skeleton. IMPRESSION: 1. Bronchial wall thickening and mosaic attenuation may reflect airways disease. No radha consolidation is seen. 2. Trace bilateral pleural effusions. 3. Small pulmonary nodules which may be infectious/inflammatory in origin. Follow-up to resolution is recommended. ACT 112: Negative or not required by law. Electronically signed by: Edy Figueroa M.D. 11/30/2023 6:24 PM Pending Results Patient Have Any Pending Studies at Discharge: No Discharge Instructions Given to Patient (Per Discharging Provider) PLEASE REFER TO YOUR NEW MEDICATION LIST AND FOLLOW INSTRUCTIONS CAREFULLY. YOUR NEW MEDICATIONS INCLUDE: Increase digoxin to 250 mcg daily Resume Entresto 24/26 mg twice a day Increase Coumadin to 7.5 mg daily until further advised by Coumadin clinic Lovenox 90 mg subcutaneous every 12 hours until further advised by Coumadin clinic Mucinex twice a day x 1 week Potassium Supplement Please continue using incentive spirometry and flutter valve at home x 1 week. PLEASE CALL YOUR PRIMARY CARE PHYSICIAN OR RETURN TO THE ER IF WITH WORSENING OF SYMPTOMS, INCLUDING Shortness of breath, weight gain of more than 3 pounds, chest pain, palpitations, dizziness, leg swelling, bleeding, etc. FOLLOW UP WITH PRIMARY CARE PHYSICIAN OUTLINED ABOVE. Follow-up with ballistics expert in 1 to 2 weeks. Total Time Total Time Spent Total Time Spent (In Minutes): 50 minutes
[2023-12-01] MEDS ORDERED: WARFARIN SOD 7.5 MG TAB PO SCH (16:00)
== END 2023-12-01 13:02 | disposition home or self-care (01) | DRG 291 ==
LOC: ED 13:34 → 2S 13:34 → SUATTDRO 16:37 → 2S 17:32
DX: Z83.3 Family history of diabetes mellitus; Z82.49 Family history of ischemic heart disease and other diseases of the circulatory system; Z87.891 Personal history of nicotine dependence; Z79.01 Long term (current) use of anticoagulants; Z79.899 Other long term (current) drug therapy; Z79.84 Long term (current) use of oral hypoglycemic drugs; Z95.2 Presence of prosthetic heart valve; E78.5 Hyperlipidemia, unspecified; Z79.51 Long term (current) use of inhaled steroids; F32.A Depression, unspecified; Z91.040 Latex allergy status; I11.0 Hypertensive heart disease with heart failure; E11.9 Type 2 diabetes mellitus without complications; M19.90 Unspecified osteoarthritis, unspecified site; J06.9 Acute upper respiratory infection, unspecified; I50.33 Acute on chronic diastolic (congestive) heart failure; Z91.041 Radiographic dye allergy status; I48.21 Permanent atrial fibrillation